=== PATIENT | female | born 1965 | race Caucasian/White ===

== ENCOUNTER 2017-09-04 20:51 | Emergency (ER) | payer OTHER ==
[~2017-09-04] VITALS: Ht 170.2 cm; Wt 112.5 kg
[~2017-09-04 20:51] MED LIST: ATEN50; NAPR550 PO; RXHYDACE PO; VYTORIN
[2017-09-04 22:10] LABS: BASOPHILS ABSOLUTE AUTO 0.03 K/mm3 (0.00-0.23); BASOPHILS PERCENT AUTO 0 % (0-2); EOSINOPHILS ABSOLUTE AUTO 0.59 K/mm3 (0.00-0.68); EOSINOPHILS PERCENT AUTO 5 % (0-6); Hemoglobin 15.9 g/dL (11.5-16.0); IMMATURE GRAN ABSOLUTE AUTO 0.04 K/mm3 (0.00-0.10); IMMATURE GRAN PERCENT AUTO 0 % (0-1); LYMPHOCYTES ABSOLUTE AUTO 3.23 K/mm3 (0.84-5.20); LYMPHOCYTES PERCENT AUTO 25 % (21-46); MONOCYTES ABSOLUTE AUTO 0.65 K/mm3 (0.16-1.47); MONOCYTES PERCENT AUTO 5 % (4-13); Mean Corpuscular HGB 30.1 pg (26.0-34.0); Mean Corpuscular HGB Conc 33.8 g/dL (31.5-36.5); Mean Corpuscular Volume 89 fL (80-100); Mean Platelet Volume 9.2 fL (9.1-12.4); NEUTROPHILS ABSOLUTE AUTO 8.19 K/mm3 (1.96-9.15); NEUTROPHILS PERCENT AUTO 64 % (41-73); Platelet Count 352 K/mm3 (150-400); RDW Coefficient Variation 14.1 % (11.7-14.2); RDW Standard Deviation 45.9 fL (35.1-46.3); Red Blood Cell Count 5.28 M/mm3 (3.80-5.20); White Blood Cell Count 12.73 K/mm3 (4.00-11.30)
[2017-09-04 22:31] LABS: Alanine Aminotransfer (ALT/SGP 29 U/L (12-78); Albumin, Blood 3.2 g/dL (3.4-5.0); Albumin/Globulin Ratio 0.7 (0.8-1.8); Alk Phos 82 U/L (50-136); Anion Gap 8 mmol/L (6-16); Aspartate Aminotrans (AST/SGOT 23 U/L (12-37); Bilirubin, Total 0.3 mg/dL (0.1-1.0); Blood Urea Nitrogen 12 mg/dL (8-24); Bun/Creatinine Ratio 18.2 (12.0-20.0); CO2, Blood 23 mmol/L (21-32); Calcium, Blood 8.7 mg/dL (8.5-10.1); Chloride, Blood 107 mmol/L (98-108); Creatinine, Blood 0.66 mg/dL (0.40-1.00); Globulin, Blood 4.8 g/dL (2.2-4.0); Glomerular Filtration Rate >60 (60-); Glucose, Blood 89 mg/dL (70-99); Potassium, Blood 4.2 mmol/L (3.5-5.5); Sodium, Blood 138 mmol/L (136-145); Troponin I <0.015 ng/mL (0.000-0.040)
[2017-09-04] MEDS ORDERED: CYCL10 PO (23:16)
[2017-09-05] MEDS ORDERED: Zithromax250 MG PO (17:06)
[2017-09-05] MEDS ORDERED: Cheratussin AC118 ML PO (17:06)
== END 2017-09-04 23:45 | disposition home or self-care (01) ==
LOC: ER 20:51
PROVIDERS: Emergency Medicine
DX: M54.9 Dorsalgia, unspecified (principal); B34.9 Viral infection, unspecified; Z79.899 Other long term (current) drug therapy
CPT/HCPCS: 36415; 71046; 80053; 83690; 83880; 84484; 85025; 93005; 93010; 96374; 99284; J1885

== ENCOUNTER → 2017-09-09 | Outpatient (CLI) | payer OTHER ==
[~2017-09-09] MED LIST changes: +ACET325 PO; +CYCL10 PO; +Cheratussin AC118 ML PO; +FOLI1 PO; +LEVO750 PO; +LOSA50 PO; +METTREX2.5 PO; +PRED10 PO; +PRED5 PO; +Zithromax250 MG PO
[2017-09-09 17:03] LABS: BASOPHILS ABSOLUTE AUTO 0.05 K/mm3 (0.00-0.23); BASOPHILS PERCENT AUTO 0 % (0-2); EOSINOPHILS ABSOLUTE AUTO 0.81 K/mm3 (0.00-0.68); EOSINOPHILS PERCENT AUTO 7 % (0-6); Hematocrit 47.6 % (33.0-51.0); Hemoglobin 15.9 g/dL (11.5-16.0); IMMATURE GRAN ABSOLUTE AUTO 0.02 K/mm3 (0.00-0.10); IMMATURE GRAN PERCENT AUTO 0 % (0-1); LYMPHOCYTES ABSOLUTE AUTO 2.77 K/mm3 (0.84-5.20); LYMPHOCYTES PERCENT AUTO 24 % (21-46); MONOCYTES ABSOLUTE AUTO 0.61 K/mm3 (0.16-1.47); MONOCYTES PERCENT AUTO 5 % (4-13); Mean Corpuscular HGB 29.4 pg (26.0-34.0); Mean Corpuscular HGB Conc 33.4 g/dL (31.5-36.5); Mean Corpuscular Volume 88 fL (80-100); Mean Platelet Volume 9.2 fL (9.1-12.4); NEUTROPHILS ABSOLUTE AUTO 7.26 K/mm3 (1.96-9.15); NEUTROPHILS PERCENT AUTO 63 % (41-73); Platelet Count 373 K/mm3 (150-400); Red Blood Cell Count 5.41 M/mm3 (3.80-5.20); White Blood Cell Count 11.52 K/mm3 (4.00-11.30)
== END | disposition home or self-care (01) ==
LOC: LAB EV 16:58
PROVIDERS: Physician Assistant
DX: J18.9 Pneumonia, unspecified organism (principal)
CPT/HCPCS: 85025; 85379

== ENCOUNTER → 2017-09-25 | Outpatient (CLI) | payer OTHER ==
[2017-09-25 11:53] LABS: BASOPHILS ABSOLUTE AUTO 0.04 K/mm3 (0.00-0.23); BASOPHILS PERCENT AUTO 0 % (0-2); EOSINOPHILS ABSOLUTE AUTO 1.06 K/mm3 (0.00-0.68); EOSINOPHILS PERCENT AUTO 11 % (0-6); Hematocrit 45.4 % (33.0-51.0); IMMATURE GRAN ABSOLUTE AUTO 0.03 K/mm3 (0.00-0.10); IMMATURE GRAN PERCENT AUTO 0 % (0-1); LYMPHOCYTES PERCENT AUTO 27 % (21-46); MONOCYTES ABSOLUTE AUTO 0.45 K/mm3 (0.16-1.47); MONOCYTES PERCENT AUTO 5 % (4-13); Mean Corpuscular HGB 29.2 pg (26.0-34.0); Mean Corpuscular Volume 88 fL (80-100); Mean Platelet Volume 8.9 fL (9.1-12.4); NEUTROPHILS ABSOLUTE AUTO 5.59 K/mm3 (1.96-9.15); NEUTROPHILS PERCENT AUTO 57 % (41-73); Platelet Count 418 K/mm3 (150-400); RDW Coefficient Variation 14.1 % (11.7-14.2); RDW Standard Deviation 45.6 fL (35.1-46.3); Red Blood Cell Count 5.14 M/mm3 (3.80-5.20); White Blood Cell Count 9.87 K/mm3 (4.00-11.30)
[2017-09-26 14:29] LABS: Rheumatoid Factor, Serum Negative (Negative)
[2017-09-28 04:43] LABS: C3 135 mg/dL (90-200); C4 17.9 mg/dL (15.0-55.0)
[2017-09-28 09:13] LABS: RNP/SM Ab IgG 0.2 AI (<1.0)
[2017-09-29 11:11] LABS: ANA Pattern Speckled; Antinuclear Antibody Screen Positive Cytoplasmic (Negative)
== END ==
LOC: LAB EV 11:49
PROVIDERS: Physician Assistant
DX: R05 Cough (principal)
CPT/HCPCS: 85025; 85651; 86038; 86039; 86160; 86225; 86235; 86430

== ENCOUNTER → 2017-12-07 | Outpatient (CLI) | payer OTHER ==
[~2017-12-07] MED LIST changes: -ACET325 PO; -FOLI1 PO; -LEVO750 PO; -LOSA50 PO; -METTREX2.5 PO; -PRED10 PO; -PRED5 PO
[2017-12-09 14:32] LABS: Stool Occult Bld Immuno 1 Negative (NEGATIVE)
== END | disposition home or self-care (01) ==
LOC: LAB EV 09:15
PROVIDERS: Nurse Practitioner Family
DX: Z12.11 Encounter for screening for malignant neoplasm of colon (principal)
CPT/HCPCS: G0328

== ENCOUNTER 2018-02-04 21:07 | Inpatient (IN) | payer OTHER ==
[~2018-02-04] VITALS: Ht 170.2 cm; Wt 110.0 kg
[2018-02-04] MEDS ORDERED: PRED5 PO (21:20)
[2018-02-04] MEDS ORDERED: FOLI1 PO (21:20)
[2018-02-04] MEDS ORDERED: METTREX2.5 PO (21:21)
[2018-02-04] MEDS ORDERED: LOSA50 PO (21:21)
[2018-02-04 21:41] LABS: BASOPHILS ABSOLUTE AUTO 0.05 K/mm3 (0.00-0.23); BASOPHILS PERCENT AUTO 0 % (0-2); EOSINOPHILS ABSOLUTE AUTO 0.54 K/mm3 (0.00-0.68); EOSINOPHILS PERCENT AUTO 4 % (0-6); Hematocrit 46.3 % (33.0-51.0); Hemoglobin 15.3 g/dL (11.5-16.0); IMMATURE GRAN ABSOLUTE AUTO 0.02 K/mm3 (0.00-0.10); IMMATURE GRAN PERCENT AUTO 0 % (0-1); LYMPHOCYTES ABSOLUTE AUTO 3.53 K/mm3 (0.84-5.20); LYMPHOCYTES PERCENT AUTO 29 % (21-46); MONOCYTES PERCENT AUTO 6 % (4-13); Mean Corpuscular HGB 29.3 pg (26.0-34.0); Mean Corpuscular Volume 89 fL (80-100); Mean Platelet Volume 8.5 fL (9.1-12.4); NEUTROPHILS ABSOLUTE AUTO 7.39 K/mm3 (1.96-9.15); NEUTROPHILS PERCENT AUTO 60 % (41-73); Platelet Count 389 K/mm3 (150-400); RDW Coefficient Variation 14.1 % (11.7-14.2); RDW Standard Deviation 45.6 fL (35.1-46.3); Red Blood Cell Count 5.22 M/mm3 (3.80-5.20); White Blood Cell Count 12.23 K/mm3 (4.00-11.30)
[2018-02-04 22:00] LABS: Alanine Aminotransfer (ALT/SGP 31 U/L (12-78); Albumin, Blood 3.1 g/dL (3.4-5.0); Albumin/Globulin Ratio 0.6 (0.8-1.8); Alk Phos 86 U/L (50-136); Anion Gap 7 mmol/L (6-16); Aspartate Aminotrans (AST/SGOT 25 U/L (12-37); Bilirubin, Total 0.4 mg/dL (0.1-1.0); Blood Urea Nitrogen 15 mg/dL (8-24); Bun/Creatinine Ratio 21.7 (12.0-20.0); CO2, Blood 24 mmol/L (21-32); Calcium, Blood 9.2 mg/dL (8.5-10.1); Chloride, Blood 109 mmol/L (98-108); Creatinine, Blood 0.69 mg/dL (0.40-1.00); Globulin, Blood 5.1 g/dL (2.2-4.0); Glomerular Filtration Rate >60 (60-); Glucose, Blood 88 mg/dL (70-99); Sodium, Blood 140 mmol/L (136-145); Total Protein, Blood 8.2 g/dL (6.4-8.2)
[2018-02-04 22:28] LABS: Troponin I <0.015 ng/mL (0.000-0.040)
[2018-02-06 04:33] LABS: International Normalized Ratio 1.04; Prothrombin Time Results 10.8 Sec (9.7-11.5)
[2018-02-06 12:48] LABS: Body Fluid WBC Count 4540 /mm3 (0-999); RBC Count, Body Fluid 50000 /mm3 (0-0)
[2018-02-06 12:53] LABS: Protein, Body Fluid 4.7 g/dL
[2018-02-06 12:59] LABS: Glucose, Body Fluid 92 mg/dL
[2018-02-06 13:40] LABS: Color, Body Fluid Red (None-Yellow)
[2018-02-06 13:41] LABS: Appearance, Body Fluid Cloudy (Clear); Total Cell Count, Body Fluid 100
[2018-02-06] MEDS ORDERED: PRED10 PO (17:35)
[2018-02-06] MEDS ORDERED: ACET325 PO (17:36)
[2018-02-06] MEDS ORDERED: LEVO750 PO (17:37)
== END 2018-02-06 18:32 | disposition home or self-care (01) | DRG 871 ==
LOC: ER 21:07 → PCU 21:08
PROVIDERS: Emergency Medicine; Family Medicine
PROC: 0W993ZZ Drainage of Right Pleural Cavity, Percutaneous Approach (ICD-10-PCS; principal; 2018-02-06)
DX: A41.9 Sepsis, unspecified organism (principal); J18.9 Pneumonia, unspecified organism; J90 Pleural effusion, not elsewhere classified; F17.210 Nicotine dependence, cigarettes, uncomplicated; I10 Essential (primary) hypertension; R73.9 Hyperglycemia, unspecified; R07.89 Other chest pain; M06.9 Rheumatoid arthritis, unspecified
CPT/HCPCS: 32555; 36415; 71045; 71046; 71260; 80053; 82042; 82945; 84157; 84484; 85025; 85610; 87070; 88108; 88305; 89051; 93005; 93010; 96365; 96366; 96368; 96372; 96374; 96375; 96376; 99285; G0378; J0696; J1650; J1956; J2543; J7030; J7120; Q9967

== ENCOUNTER → 2020-07-01 | Outpatient (CLI) | payer OTHER ==
[~2020-07-01] MED LIST changes: +ACET325 PO; +FOLI1 PO; +LEVO750 PO; +LOSA50 PO; +METTREX2.5 PO; +PRED10 PO; +PRED5 PO
== END | disposition home or self-care (01) ==
LOC: LAB SHORT 08:26 → PLD 08:26
DX: L82.1 Other seborrheic keratosis (principal)
CPT/HCPCS: 88305

== ENCOUNTER → 2021-08-04 | Outpatient (CLI) | payer OTHER | LOC: LAB SHORT 15:13 → LAB 15:13 | DX: D48.5 Neoplasm of uncertain behavior of skin (principal); L81.4 Other melanin hyperpigmentation | CPT/HCPCS: 88305 ==

== ENCOUNTER → 2024-10-10 | Outpatient (CLI) | payer OTHER ==
[2024-10-10 17:22] LABS: BASOPHILS ABSOLUTE AUTO 0.06 K/mm3 (0.00-0.23); BASOPHILS PERCENT AUTO 1 % (0-2); EOSINOPHILS ABSOLUTE AUTO 0.13 K/mm3 (0.00-0.68); EOSINOPHILS PERCENT AUTO 2 % (0-6); Hematocrit 42.7 % (33.0-51.0); Hemoglobin 14.4 g/dL (11.5-16.0); IMMATURE GRAN ABSOLUTE AUTO 0.01 K/mm3 (0.00-0.10); IMMATURE GRAN PERCENT AUTO 0 % (0-1); LYMPHOCYTES ABSOLUTE AUTO 1.99 K/mm3 (0.84-5.20); LYMPHOCYTES PERCENT AUTO 32 % (21-46); MONOCYTES ABSOLUTE AUTO 0.53 K/mm3 (0.16-1.47); MONOCYTES PERCENT AUTO 9 % (4-13); Mean Corpuscular HGB 30.3 pg (26.0-34.0); Mean Corpuscular HGB Conc 33.7 g/dL (31.5-36.5); Mean Corpuscular Volume 90 fL (80-100); NEUTROPHILS ABSOLUTE AUTO 3.43 K/mm3 (1.96-9.15); NEUTROPHILS PERCENT AUTO 56 % (41-73); Platelet Count 224 K/mm3 (150-400); RDW Coefficient Variation 15.7 % (11.7-14.2); RDW Standard Deviation 51.6 fL (35.1-46.3); Red Blood Cell Count 4.75 M/mm3 (3.80-5.20); White Blood Cell Count 6.15 K/mm3 (4.00-11.30)
[2024-10-10 17:38] LABS: Albumin, Blood 3.6 g/dL (3.4-5.0); Albumin/Globulin Ratio 0.9 (0.8-1.8); Bilirubin, Total 0.7 mg/dL (0.1-1.0); Bun/Creatinine Ratio 15.3 (12.0-20.0); Calcium, Blood 10.5 mg/dL (8.5-10.1); Creatinine, Blood 0.85 mg/dL (0.40-1.00); Globulin, Blood 4.2 g/dL (2.2-4.0); Potassium, Blood 3.1 mmol/L (3.5-5.5); Total Protein, Blood 7.8 g/dL (6.4-8.2)
[2024-10-14 10:57] LABS: HEPATITIS A ANTIBODY, IGM Negative (Negative); HEPATITIS B CORE ANTIBODY, IGM Negative (Negative); HEPATITIS B SURFACE ANTIGEN Negative (Negative); HEPATITIS C AB CIA INTERP Negative (Negative); HEPATITIS C ANTIBODY CIA INDEX 0.07 IV
== END | disposition home or self-care (01) ==
LOC: LAB 17:17 → LAB SHORT 17:17
PROVIDERS: Emergency Medicine
DX: R19.7 Diarrhea, unspecified (principal); R74.8 Abnormal levels of other serum enzymes
CPT/HCPCS: 80053; 80074; 83690; 85025; G0480

== ENCOUNTER → 2024-10-21 | Outpatient (CLI) | payer OTHER ==
[2024-10-21 12:15] LABS: BASOPHILS ABSOLUTE AUTO 0.02 K/mm3 (0.00-0.23); BASOPHILS PERCENT AUTO 0 % (0-2); EOSINOPHILS ABSOLUTE AUTO 0.05 K/mm3 (0.00-0.68); EOSINOPHILS PERCENT AUTO 1 % (0-6); Hematocrit 37.2 % (33.0-51.0); Hemoglobin 12.6 g/dL (11.5-16.0); IMMATURE GRAN ABSOLUTE AUTO 0.02 K/mm3 (0.00-0.10); IMMATURE GRAN PERCENT AUTO 0 % (0-1); LYMPHOCYTES ABSOLUTE AUTO 1.26 K/mm3 (0.84-5.20); LYMPHOCYTES PERCENT AUTO 16 % (21-46); MONOCYTES ABSOLUTE AUTO 0.88 K/mm3 (0.16-1.47); MONOCYTES PERCENT AUTO 11 % (4-13); Mean Corpuscular HGB 30.8 pg (26.0-34.0); Mean Corpuscular HGB Conc 33.9 g/dL (31.5-36.5); Mean Corpuscular Volume 91 fL (80-100); NEUTROPHILS ABSOLUTE AUTO 5.87 K/mm3 (1.96-9.15); NEUTROPHILS PERCENT AUTO 73 % (41-73); Platelet Count 181 K/mm3 (150-400); RDW Coefficient Variation 16.6 % (11.7-14.2); RDW Standard Deviation 55.8 fL (35.1-46.3); Red Blood Cell Count 4.09 M/mm3 (3.80-5.20)
[2024-10-21 12:25] LABS: Albumin, Blood 2.7 g/dL (3.4-5.0); Albumin/Globulin Ratio 0.6 (0.8-1.8); Bilirubin, Total 5.7 mg/dL (0.1-1.0); Bun/Creatinine Ratio 13.2 (12.0-20.0); Calcium, Blood 9.2 mg/dL (8.5-10.1); Creatinine, Blood 0.53 mg/dL (0.40-1.00); Globulin, Blood 4.2 g/dL (2.2-4.0); Potassium, Blood 3.7 mmol/L (3.5-5.5); Total Protein, Blood 6.9 g/dL (6.4-8.2)
== END ==
LOC: LAB SHORT 12:09 → LAB 12:09
PROVIDERS: Physician Assistant Medical
DX: R07.81 Pleurodynia (principal)
CPT/HCPCS: 80053; 83690; 85025; 85379

== ENCOUNTER 2024-11-21 13:10 | Emergency (ER) | payer OTHER ==
[~2024-11-21] VITALS: Ht 170.2 cm; Wt 74.8 kg
[2024-11-21 13:49] VITALS: BP 129/78
== END 2024-11-21 17:55 ==
LOC: ER 13:10
DX: T85.510A Breakdown (mechanical) of bile duct prosthesis, initial encounter (principal); F17.200 Nicotine dependence, unspecified, uncomplicated; Z79.899 Other long term (current) drug therapy; Z88.5 Allergy status to narcotic agent
CPT/HCPCS: 99281

== ENCOUNTER 2024-11-29 04:20 | Day surgery (SDC) | payer OTHER | END 2024-11-29 17:17 | disposition home or self-care (01) | LOC: ATC 04:20 | DX: C25.0 Malignant neoplasm of head of pancreas (principal); I10 Essential (primary) hypertension; R73.03 Prediabetes; F17.290 Nicotine dependence, other tobacco product, uncomplicated; Z88.5 Allergy status to narcotic agent; Z79.01 Long term (current) use of anticoagulants; Z79.899 Other long term (current) drug therapy | CPT/HCPCS: 96523; J1642 ==

== ENCOUNTER 2024-12-13 03:52 | Day surgery (SDC) | payer OTHER ==
[2024-12-13 16:37] VITALS: BP 130/80
== END 2024-12-13 16:42 | disposition home or self-care (01) ==
LOC: ATC 03:52
DX: C25.0 Malignant neoplasm of head of pancreas (principal); F17.210 Nicotine dependence, cigarettes, uncomplicated
CPT/HCPCS: 96523; J1642

== ENCOUNTER 2024-12-27 03:11 | Day surgery (SDC) | payer OTHER ==
[2024-12-27 16:15] VITALS: BP 120/89
[2024-12-27] MEDS ORDERED: SPIR50 PO (16:31)
== END 2024-12-27 16:25 | disposition home or self-care (01) ==
LOC: ATC 03:11
DX: C25.0 Malignant neoplasm of head of pancreas (principal); I10 Essential (primary) hypertension; R73.03 Prediabetes; Z88.5 Allergy status to narcotic agent; Z79.899 Other long term (current) drug therapy
CPT/HCPCS: 96523; J1642

== ENCOUNTER 2025-02-03 22:55 | Inpatient (IN) | payer OTHER ==
[~2025-02-03] VITALS: Ht 172.7 cm; Wt 80.9 kg
[~2025-02-03 22:55] MED LIST changes: +SPIR50 PO
[2025-02-03 23:53] LABS: Hematocrit 25.1 % (33.0-51.0); Hemoglobin 8.9 g/dL (11.5-16.0); Mean Corpuscular HGB Conc 35.5 g/dL (31.5-36.5); Mean Corpuscular Volume 80 fL (80-100); NRBC ABSOLUTE 0.13 K/mm3 (0.00-0.02); NRBC Auto 18.6 /100 WBC (0.0-0.2); RDW Coefficient Variation 22.5 % (11.7-14.2); RDW Standard Deviation 56.9 fL (35.1-46.3)
[2025-02-03 23:54] LABS: Platelet Count 40 K/mm3 (150-400)
[2025-02-04] VITALS (72 sets, daily range): BP systolic 71–120; BP diastolic 49–84
[2025-02-04 00:32] LABS: BAND PERCENT MAN 12 % (0-8); BASOPHILS ABSOLUTE MAN 0.00 K/mm3 (0.00-0.23); BASOPHILS PERCENT MAN 0 % (0-2); EOSINOPHILS ABSOLUTE MAN 0.00 K/mm3 (0.00-0.68); EOSINOPHILS PERCENT MAN 0 % (0-6); LYMPHOCYTES ABSOLUTE MAN 0.42 K/mm3 (0.84-5.20); LYMPHOCYTES PERCENT MAN 60 % (21-46); MONOCYTES ABSOLUTE MAN 0.02 K/mm3 (0.16-1.47); MONOCYTES PERCENT MAN 4 % (4-13); NEUTROPHILS ABSOLUTE MAN 0.25 K/mm3 (1.96-9.15); SEG NEUTROPHILS PERCENT MAN 24 % (41-73)
[2025-02-04 00:44] LABS: Alanine Aminotransfer (ALT/SGP 38.0 U/L (12-78); Albumin, Blood 1.5 g/dL (3.4-5.0); Albumin/Globulin Ratio 0.4 (0.8-1.8); Anion Gap 13.0 mmol/L (3-11); Aspartate Aminotrans (AST/SGOT 28.0 U/L (12-37); Bilirubin, Total 0.9 mg/dL (0.1-1.0); Blood Urea Nitrogen 14.0 mg/dL (8-24); CO2, Blood 18.0 mmol/L (21-32); Calcium, Blood 8.5 mg/dL (8.5-10.1); Chloride, Blood 111.0 mmol/L (98-108); Creatinine, Blood 0.63 mg/dL (0.40-1.00); Globulin, Blood 3.4 g/dL (2.2-4.0); Glucose, Blood 102.0 mg/dL (70-99); Potassium, Blood 2.3 mmol/L (3.5-5.5); Sodium, Blood 140.0 mmol/L (136-145); Total Protein, Blood 4.9 g/dL (6.4-8.2)
[2025-02-04] MEDS ORDERED: Cefepime HCl 1,000 MG in NS 100 ML IV ONE (00:55)
[2025-02-04] MEDS ORDERED: Vancomycin HCL 2,000 MG in NS 520 ML IV ONE (00:55)
[2025-02-04] MEDS ORDERED: Vancomycin (Pharmacy Consult) IV SCH (01:40)
[2025-02-04 01:51] LABS: Magnesium, Blood 1.3 mg/dL (1.6-2.4)
[2025-02-04] MEDS ORDERED: Magnesium Sulf 2 GM/Water 50ML 50 ML IV SCH (02:30)
[2025-02-04 04:29] LABS: Source, Urine Clean Catch
[2025-02-04 04:33] LABS: Bilirubin, Urine Neg (Neg); Color, Urine Brown (P-Yellow); Glucose Qualitative, Urine Neg (Neg); Ketones, Urine Neg (Neg); Leukocyte Esterase, Urine 1+ (Neg); Protein, Urine 3+ (Neg); Specific Gravity, Urine 1.015 (1.003-1.022); Urobilinogen, Urine NORM (Normal)
[2025-02-04 04:47] LABS: Red Blood Cells, Urine TNTC /hpf (0-2); White Blood Cells, Urine 0-2 /hpf (0-5)
[2025-02-04] MEDS ORDERED: KLOR-CON 1010 ME2 PO (04:59)
[2025-02-04] MEDS ORDERED: PANTOPRAZOLE SO40 M2 PO (04:59)
[2025-02-04] MEDS ORDERED: ELIQUIS5 M3 PO (04:59)
[2025-02-04] MEDS ORDERED: OXYC5 PO (04:59)
[2025-02-04] MEDS ORDERED: LOMOTIL 2.5-0.1 EACH PO (04:59)
[2025-02-04 05:04] LABS: Hematocrit 22.6 % (33.0-51.0); Hemoglobin 7.7 g/dL (11.5-16.0); Mean Corpuscular HGB Conc 34.1 g/dL (31.5-36.5); Mean Corpuscular Volume 84 fL (80-100); NRBC ABSOLUTE 0.16 K/mm3 (0.00-0.02); NRBC Auto 15.8 /100 WBC (0.0-0.2); RDW Coefficient Variation 22.8 % (11.7-14.2); RDW Standard Deviation 60.7 fL (35.1-46.3)
[2025-02-04 05:19] LABS: Platelet Count 40 K/mm3 (150-400)
[2025-02-04 05:27] LABS: Alanine Aminotransfer (ALT/SGP 31.0 U/L (12-78); Albumin, Blood 1.3 g/dL (3.4-5.0); Albumin/Globulin Ratio 0.4 (0.8-1.8); Anion Gap 14.0 mmol/L (3-11); Aspartate Aminotrans (AST/SGOT 27.0 U/L (12-37); Bilirubin, Total 0.8 mg/dL (0.1-1.0); Blood Urea Nitrogen 13.0 mg/dL (8-24); CO2, Blood 17.0 mmol/L (21-32); Calcium, Blood 7.8 mg/dL (8.5-10.1); Chloride, Blood 113.0 mmol/L (98-108); Creatinine, Blood 0.67 mg/dL (0.40-1.00); Globulin, Blood 2.9 g/dL (2.2-4.0); Glucose, Blood 87.0 mg/dL (70-99); Potassium, Blood 2.6 mmol/L (3.5-5.5); Sodium, Blood 141.0 mmol/L (136-145); Total Protein, Blood 4.2 g/dL (6.4-8.2)
[2025-02-04 05:56] LABS: BAND PERCENT MAN 26 % (0-8); BASOPHILS ABSOLUTE MAN 0.00 K/mm3 (0.00-0.23); BASOPHILS PERCENT MAN 0 % (0-2); BLASTS PERCENT MAN 4 % (0-0); EOSINOPHILS ABSOLUTE MAN 0.00 K/mm3 (0.00-0.68); EOSINOPHILS PERCENT MAN 0 % (0-6); LYMPHOCYTES % ATYPICAL MANUAL 2 % (0-0); LYMPHOCYTES ABSOLUTE MAN 0.24 K/mm3 (0.84-5.20); LYMPHOCYTES PERCENT MAN 22 % (21-46); MONOCYTES ABSOLUTE MAN 0.14 K/mm3 (0.16-1.47); MONOCYTES PERCENT MAN 14 % (4-13); MYELOCYTE ABSOLUTE MAN 0.04 K/mm3 (0.00-0.00); MYELOCYTE PERCENT MAN 4 % (0-0); NEUTROPHILS ABSOLUTE MAN 0.50 K/mm3 (1.96-9.15); PROMYELOCYTE ABSOLUTE MAN 0.04 K/mm3 (0.00-0.00); PROMYELOCYTE PERCENT MAN 4 % (0-0); SEG NEUTROPHILS PERCENT MAN 24 % (41-73)
--- NOTE | 2025-02-04 07:00 | NUR ---
CARE ASSUMPTION DURING BEDSIDE SHIFT REPORT W SHAD JUAREZ THE PT IN LYING IN BED ON RM AIR. PT AWAKENS EASILY TO OUR VOICE AND COMMUNICATED APPROPRIATELY W STAFF. PT'S MONITOR SHOWING ST VS AFIB 100-150. BP W MAP >65 ON LEVOPHED GTT. LR INFUSING AT 125 ML/HR. PT DENYING ANY PAIN OR NAUSEA AT THIS TIME. UPON ASSESSMENT PT AFEBRILE. PT REPORTING "FEELING BETTER" THEN SHE DID BEFORE COMING IN. PT SPEAKING IN FULL SENTANCES SHOWING NO DYSPNEA. PT OVERALL APPEARS WEAK BUT IN NO OBVIOUS DISTRESS AT THIS TIME. DR. LYN CONTACTED AND NOTIFIED ON INCREASING LEVOPHED GTT TITRATIONS, ORDERS FOR VASOPRESSIN AND HYDROCORTISONE OBTAINED.
--- NOTE | 2025-02-04 07:45 | NUR ---
ADMISSION 0520 RECEIVED PT FROM ED VIA STRETCHER AND TRANSFERRED TO ICU BED ROON 10, PT ALERT AND ORIENTED, FOLLOWS COMMANDS, ABLE TO MAKE NEEDS KNOWN, SR-ST 90-120 S, BP MAP GOAL OF >65 ON LEVOPHED GTT AND TITRATED PER EMAR, AFEBRILE, NOTED MULTIPLE ABRASIONS, SKIN TEARS AND BRUISING TO SKIN WITH PICTURES IN CHART, BLE WITH +4 PITTING EDEMA, RIGHT CHEST MEDIPORT ACCESSED WITH LEVOPHED INFUSING, PIV TO RIGHT AC AND LEFT FOREARM PATENT, POTASSIUM AND MAG REPLACEMENT INFUSING, LR INFUSING AT 100 ML/HR AND VANC INFUSING , PUREWICK PLACED PER PT INCONTINENT OF URINE, LACTIC OF 3.2 AND PLATELETS OF 40 CALLED TO MD WITH NEW ORDERS RECEIVED TO INCREASE LR TO 125 ML/HR, PT REMAINS ON NEUTROPENIC PRECAUTIONS, ORIENTED TO ROOM, BED CONTROLS AND CALL LIGHT, DENIES NEEDS OR C/O AT THIS TIME
[2025-02-04] MEDS ORDERED: Vasopressin 20 UNITS in NS 100 ML IV SCH (08:10)
[2025-02-04] MEDS ORDERED: Cefepime HCl 2,000 MG in NS 100 ML IV SCH (10:00)
[2025-02-04] MEDS ORDERED: Piperacillin/Tazobactam Sod 4.5 GM in NS 100 ML IV ONE (11:20)
[2025-02-04] MEDS ORDERED: FentaNYL Citrate 50 MCG/ML 2 ML Injection IV PRN (11:40)
[2025-02-04] MEDS ORDERED: Furosemide 10 MG / ML 2ML Vial IV SCH (12:00)
[2025-02-04] MEDS ORDERED: Phenylephrine HCl 100 MCG/ML-NS 10MLSYR (1MG/10ML) IV ONE ×2 (13:32→21:14)
[2025-02-04] MEDS ORDERED: Rocuronium Bromide 10 MG/ML 5ML Injection IV ONE ×2 (13:32→21:14)
[2025-02-04] MEDS ORDERED: Propofol 10mg/ml 20 ml Vial (Procedural) IV ONE (13:32)
[2025-02-04 14:04] LABS: Anion Gap 16.0 mmol/L (3-11); Blood Urea Nitrogen 14.0 mg/dL (8-24); CO2, Blood 16.0 mmol/L (21-32); Calcium, Blood 7.9 mg/dL (8.5-10.1); Chloride, Blood 112.0 mmol/L (98-108); Creatinine, Blood 0.65 mg/dL (0.40-1.00); Glucose, Blood 106.0 mg/dL (70-99); Potassium, Blood 2.8 mmol/L (3.5-5.5); Sodium, Blood 141.0 mmol/L (136-145)
[2025-02-04] MEDS ORDERED: Potassium Chl 20MEQ/Water100ML 100 ML IV STA (14:20)
[2025-02-04] MEDS ORDERED: NS 250 ML IV PRN (14:30)
--- NOTE | 2025-02-04 16:47 | NUR ---
Pt. is resting but responds when I enter the room. The Pt. is pleasant. Facilitated a life review and listened with empathy and interest as the Pt. verbalized her journey with pancreatic cancer. The Pt. displays evidence of both ceci and defiance as she verbalizes her cancer rushing. Matters of crystal and belief are also considered. Prayed with Pt. Pt. verbalized gratitude for the spiritual care visit and welcomed this clinical data management manager to return.
[2025-02-04] MEDS ORDERED: Piperacillin/Tazobactam Sod 4.5 GM in NS 100 ML IV SCH (18:00)
--- NOTE | 2025-02-04 19:12 | NUR ---
DAY SHIFT SUMMARY PT HAS BEEN ALERT AND ORIENTED THIS SHIFT COMMUNICATING APPROPRIATELY W STAFF. PT REMAINED ON LEVOPHED AND VASOPRESSIN GTT'S THIS SHIFT. BP STABLE MAP ON PRESSORS. MONITOR SHOWING ST 100-150'S THIS AM BUT PT HR DROPPED TO 80'S-90'S THIS AFTERNOON. PT AFEBRILE ALL SHIFT. PT W POOR PO INTAKE THIS SHIFT. PT GIVEN LASIX AND HAD PUREWICK IN PLACE HOWEVER PT'S PUREWICK FAILED TO COLLECT URINE ON 2 EVENTS SO i&o'S ARE NOT ACUURATE, INCONTINENT URINE VOIDS WERE VERY LARGE. PT W ONE INCONTINENT LOOSE STOOL THIS SHIFT. PT'S SONS AT BEDSIDE THIS EVENING AGREEING TO TAKE PT'S HOME MEDICATIONS HOME. WILL REPORT TO ONCOMING RN.
[2025-02-04 20:42] LABS: Anion Gap 14.0 mmol/L (3-11); Blood Urea Nitrogen 14.0 mg/dL (8-24); CO2, Blood 16.0 mmol/L (21-32); Calcium, Blood 8.2 mg/dL (8.5-10.1); Chloride, Blood 113.0 mmol/L (98-108); Creatinine, Blood 0.71 mg/dL (0.40-1.00); Glucose, Blood 132.0 mg/dL (70-99); Potassium, Blood 3.5 mmol/L (3.5-5.5); Sodium, Blood 139.0 mmol/L (136-145)
--- NOTE | 2025-02-04 20:43 | NUR ---
UPDATE PT GIVEN SCHEDULED PO MEDS OF LIQUID POTASSIUM AND PT BEGAN VOMITING IMMEDIATELY AFTER TAKING, COMPLETE BED LINEN CHANGE AND GOWN CHANGE DONE, CALLED MD TO NOTIFY OF PT VOMITING WITH NEW ORDERS RECEIVED FOR IV POTASSIUM REPLACEMENT
[2025-02-04] MEDS ORDERED: Ondansetron HCl 2 MG / ML 2ML Vial IV PRN (21:00)
[2025-02-04] MEDS ORDERED: Etomidate 2MG / ML 10ML Vial XX ONE (21:14)
[2025-02-04] MEDS ORDERED: Midazolam HCl 1MG / ML 2ML Vial XX ONE (21:14)
[2025-02-05] VITALS (78 sets, daily range): BP systolic 71–120; BP diastolic 44–91
[2025-02-05 04:04] LABS: Hematocrit 24.6 % (33.0-51.0); Hemoglobin 8.8 g/dL (11.5-16.0); Mean Corpuscular HGB Conc 35.8 g/dL (31.5-36.5); NRBC ABSOLUTE 0.40 K/mm3 (0.00-0.02); NRBC Auto 4.9 /100 WBC (0.0-0.2); RDW Coefficient Variation 22.6 % (11.7-14.2); RDW Standard Deviation 55.4 fL (35.1-46.3)
[2025-02-05 04:06] LABS: Mean Corpuscular Volume 79 fL (80-100)
[2025-02-05 04:08] LABS: Platelet Count 33 K/mm3 (150-400)
[2025-02-05 04:23] LABS: Anion Gap 15.0 mmol/L (3-11); Blood Urea Nitrogen 14.0 mg/dL (8-24); CO2, Blood 16.0 mmol/L (21-32); Calcium, Blood 8.3 mg/dL (8.5-10.1); Chloride, Blood 114.0 mmol/L (98-108); Creatinine, Blood 0.79 mg/dL (0.40-1.00); Glucose, Blood 141.0 mg/dL (70-99); Potassium, Blood 3.6 mmol/L (3.5-5.5); Sodium, Blood 141.0 mmol/L (136-145)
[2025-02-05 04:27] LABS: BAND PERCENT MAN 11 % (0-8); BASOPHILS ABSOLUTE MAN 0.00 K/mm3 (0.00-0.23); BASOPHILS PERCENT MAN 0 % (0-2); EOSINOPHILS ABSOLUTE MAN 0.00 K/mm3 (0.00-0.68); EOSINOPHILS PERCENT MAN 0 % (0-6); LYMPHOCYTES ABSOLUTE MAN 1.23 K/mm3 (0.84-5.20); LYMPHOCYTES PERCENT MAN 15 % (21-46); MONOCYTES ABSOLUTE MAN 0.57 K/mm3 (0.16-1.47); MONOCYTES PERCENT MAN 7 % (4-13); NEUTROPHILS ABSOLUTE MAN 6.40 K/mm3 (1.96-9.15); SEG NEUTROPHILS PERCENT MAN 67 % (41-73)
--- NOTE | 2025-02-05 06:19 | NUR ---
SHIFT SUMMARY PT ALERT AND ORIENTED X4 FOLLOWS COMMANDS, ABLE TO MAKE NEEDS KNOWN, NO ACUTE CHANGES THIS SHIFT, SR-SA 80-100s, BP MAP GOAL OF >65 WITH LEVOPHED IV TITRATED PER EMAR AND VASOPRESSIN GTT INFUSING PER ORDERS, AFEBRILE, POOR PO INTAKE NOTED WITH PT VOMITING AFTER TAKING PO MEDS AND PO LIQUID POTASSIUM, POTASSIUM REPLACEMENT CHANGED TO IV PER MD AND PT MEDICATED WITH ZOFRAN IVP FOR NAUSEA /VOMITING AND EFFECTIVE, RESP EVEN AND UNLABORED ON RA WITH SPO2 >92%, RLQ BILIARY DRAIN CLAMPED AND SECURED WITH SUTURES, DRESSING SATURATED WITH GREEN BILE THIS AM, GOWN AND SHEETS CHANGED, DRESSING CHANGED WITH GAUZE AND TEGADERM PLACED OVER INSERTION SITE, PT TOLERATED WELL, NOTED ABD FOLD RED AND TENDER TO TOUCH, INTER-DRY PLACED IN ABD FOLD, PUREWICK IN PLACE AND PATENT, PT INCONTINENT X1 OF SMALL LOOSE BROWN BM, PERICARE GIVEN, BRIEF AND PUREWICK CHANGED , PT TOLERATED WELL, NOTED +4 BLE EDEMA, PT SON TOOK PT HOME MEDS HOME AT BEGINNING OF SHIFT PER PT REQUEST, PT TURNED AND REPOSITIONED EVERY 2 HOURS, NEUTROPENIC PRECAUTIONS MAINTAINED, POTASSIUM REPLACEMENT ORDERS RECEIVED, PT RESTING WITH EYES CLOSED MOST OF SHIFT, AWAKENS EASILY WITH VERBAL STIMULI, BED IN LOWEST POSITION, SIDE RAILS UP X2 CALL LIGHT IN REACH
--- NOTE | 2025-02-05 07:00 | NUR ---
ASSUMPTION OF CARE PT RECEIVING LEVOPHED 10MCG/MIN AND VASOPRESSIN 0.04UNITS/MIN. PT WAKENS TO VERBAL STIMULI. SLOW TO RESPOND AT TIMES BUT PARTICIPATES IN CONVERSATION AND FOLLOWS COMMANDS. SINUS ARRYTHMIA ON MONITOR WITH RATE IN 90S. DECREASED APPETITE, REFUSES BREAKFAST TRAY. PUREWICK IN PLACE WITH 800ML OUTPUT. BED IN LOW POSITION, CALL LIGHT WITHIN REACH.
[2025-02-05 10:42] LABS: Hematocrit 25.0 % (33.0-51.0); Hemoglobin 8.8 g/dL (11.5-16.0); Mean Corpuscular HGB Conc 35.2 g/dL (31.5-36.5); Mean Corpuscular Volume 79 fL (80-100); NRBC ABSOLUTE 0.44 K/mm3 (0.00-0.02); NRBC Auto 4.3 /100 WBC (0.0-0.2); RDW Coefficient Variation 22.8 % (11.7-14.2); RDW Standard Deviation 54.9 fL (35.1-46.3)
[2025-02-05 10:48] LABS: Platelet Count 32 K/mm3 (150-400)
[2025-02-05 11:53] LABS: BAND PERCENT MAN 17 % (0-8); BASOPHILS ABSOLUTE MAN 0.00 K/mm3 (0.00-0.23); BASOPHILS PERCENT MAN 0 % (0-2); EOSINOPHILS ABSOLUTE MAN 0.00 K/mm3 (0.00-0.68); EOSINOPHILS PERCENT MAN 0 % (0-6); LYMPHOCYTES ABSOLUTE MAN 1.23 K/mm3 (0.84-5.20); LYMPHOCYTES PERCENT MAN 12 % (21-46); METAMYELOCYTE ABSOLUTE MAN 0.20 K/mm3 (0.00-0.00); METAMYELOCYTE PERCENT MAN 2 % (0-0); MONOCYTES ABSOLUTE MAN 0.92 K/mm3 (0.16-1.47); MONOCYTES PERCENT MAN 9 % (4-13); NEUTROPHILS ABSOLUTE MAN 7.93 K/mm3 (1.96-9.15); SEG NEUTROPHILS PERCENT MAN 60 % (41-73)
[2025-02-05] MEDS ORDERED: Furosemide 10 MG / ML 2ML Vial IV SCH (12:00)
[2025-02-05] MEDS ORDERED: NS IV ONE (12:55)
[2025-02-05] MEDS ORDERED: POTASSIUM CHLORIDE IV ONE (12:55)
--- NOTE | 2025-02-05 15:50 | NUR ---
Spiritual Care Visit. Pt. is resting, so I intiiated a visit with Pts. son who was at bedside. Facilitated a life review and in the process the Pt. awakened. Pt. remembered this chronometer assembler and adjuster from the previous day, and verbalized that while she has not been experiencing significant pain, she has felt somnolent most of the day. Pt. displayed evidence of being encourgaed by her visitors and verbalized that her mother had been in to see her earlier this afternoon. Prayed with the Pt. Pt. verbalized gratitude for the spiritual care visit.
[2025-02-05] MEDS ORDERED: Multivitamins 1 Tab PO SCH (17:25)
[2025-02-05 18:57] LABS: Magnesium, Blood 2.0 mg/dL (1.6-2.4); Phosphorus, Blood 2.2 mg/dL (2.5-4.9)
[2025-02-06] VITALS (58 sets, daily range): BP systolic 95–125; BP diastolic 66–90
[2025-02-06 03:45] LABS: Hematocrit 24.9 % (33.0-51.0); Hemoglobin 8.9 g/dL (11.5-16.0); Mean Corpuscular HGB Conc 35.7 g/dL (31.5-36.5); Mean Corpuscular Volume 79 fL (80-100); NRBC ABSOLUTE 0.55 K/mm3 (0.00-0.02); NRBC Auto 4.1 /100 WBC (0.0-0.2); RDW Coefficient Variation 23.4 % (11.7-14.2); RDW Standard Deviation 55.3 fL (35.1-46.3)
[2025-02-06 04:19] LABS: Platelet Count 36 K/mm3 (150-400)
[2025-02-06 05:17] LABS: BAND PERCENT MAN 3 % (0-8); BASOPHILS ABSOLUTE MAN 0.00 K/mm3 (0.00-0.23); BASOPHILS PERCENT MAN 0 % (0-2); EOSINOPHILS ABSOLUTE MAN 0.00 K/mm3 (0.00-0.68); EOSINOPHILS PERCENT MAN 0 % (0-6); LYMPHOCYTES ABSOLUTE MAN 0.67 K/mm3 (0.84-5.20); LYMPHOCYTES PERCENT MAN 5 % (21-46); MONOCYTES ABSOLUTE MAN 0.27 K/mm3 (0.16-1.47); MONOCYTES PERCENT MAN 2 % (4-13); NEUTROPHILS ABSOLUTE MAN 12.61 K/mm3 (1.96-9.15); SEG NEUTROPHILS PERCENT MAN 90 % (41-73)
--- NOTE | 2025-02-06 05:43 | NUR ---
SHIFT SUMMARY PT WAS LETHARGIC T/O SHIFT, AWOKE TO VERBAL STIMULI, UNABLE TO HOLD CONVERSATION UNTIL TOWARDS END OF SHIFT. PT MORE ALERT NOW. FOLLOWS COMMANDS. ON ROOM AIR, SATS > 92%. PT HAS VASO AND LEVO INFUSING TO PORT, MAPS > 65, HR 80-100'S. PTS BILIARY DRAIN HAS PROFUSE LEAKAGE OF GREEN DRAINAGE AROUND TUBE, MULTIPLE DRESSING CHANGES DONE THIS SHIFT. GAUZE AND TEGADERM IN PLACE. NEW PUREWICK IN PLACE, GOOD UOP NOTED. PT HAD ONE BM THIS SHIFT. SKIN HAS MULTIPLE MEPILEX IN PLACE, SILVER CLOTH IN PLACE IN FOLDS. PT IS VERY PAINFUL WITH TURNS. NO ACUTE EVENTS THIS SHIFT.
[2025-02-06 05:44] LABS: Alanine Aminotransfer (ALT/SGP 37.0 U/L (12-78); Albumin, Blood 1.4 g/dL (3.4-5.0); Albumin/Globulin Ratio 0.4 (0.8-1.8); Anion Gap 16.0 mmol/L (3-11); Aspartate Aminotrans (AST/SGOT 20.0 U/L (12-37); Bilirubin, Direct 0.5 mg/dL (0.0-0.3); Bilirubin, Indirect 0.5 mg/dL (0.1-0.7); Bilirubin, Total 1.0 mg/dL (0.1-1.0); Blood Urea Nitrogen 19.0 mg/dL (8-24); CO2, Blood 17.0 mmol/L (21-32); Calcium, Blood 8.4 mg/dL (8.5-10.1); Chloride, Blood 113.0 mmol/L (98-108); Creatinine, Blood 0.97 mg/dL (0.40-1.00); Globulin, Blood 3.2 g/dL (2.2-4.0); Glucose, Blood 172.0 mg/dL (70-99); Magnesium, Blood 2.0 mg/dL (1.6-2.4); Phosphorus, Blood 2.7 mg/dL (2.5-4.9); Potassium, Blood 4.0 mmol/L (3.5-5.5); Sodium, Blood 142.0 mmol/L (136-145); Total Protein, Blood 4.6 g/dL (6.4-8.2)
[2025-02-06] MEDS ORDERED: NS IV ONE (10:45)
[2025-02-06] MEDS ORDERED: POTASSIUM CHLORIDE IV ONE (10:45)
--- NOTE | 2025-02-06 18:33 | NUR ---
Summary. Pt more improved this shift per previous report. Up to chair for much of shift today. Pt alert and oriented, occasionally confused in conversation. Pressors titrated down this shift, see flowsheet. Pt has poor oral intake, encouraged to eat and drink throughout shift. PT ordered and in to see pt, she remains profoundly weak. Late in afternoon, during bed bath and dressing change, R/abdomen biliary drain stitches noted to have broken free and drain is out additional 3 cm. Drain stabilized with dressing. Pt skin is very fragile, meplex dressings removed from arms and replaced with non-adherent dressings and kerlix gauze. Family updated throughout shift. See chart for further details.
[2025-02-07] VITALS (50 sets, daily range): BP systolic 70–125; BP diastolic 53–89
[2025-02-07 03:44] LABS: Hematocrit 23.7 % (33.0-51.0); Hemoglobin 8.5 g/dL (11.5-16.0); Mean Corpuscular HGB Conc 35.9 g/dL (31.5-36.5); Mean Corpuscular Volume 80 fL (80-100); NRBC ABSOLUTE 0.53 K/mm3 (0.00-0.02); NRBC Auto 3.6 /100 WBC (0.0-0.2); RDW Coefficient Variation 23.1 % (11.7-14.2); RDW Standard Deviation 57.0 fL (35.1-46.3)
[2025-02-07 03:50] LABS: Platelet Count 33 K/mm3 (150-400)
[2025-02-07 04:07] LABS: Alanine Aminotransfer (ALT/SGP 33.0 U/L (12-78); Albumin, Blood 1.4 g/dL (3.4-5.0); Albumin/Globulin Ratio 0.4 (0.8-1.8); Anion Gap 15.0 mmol/L (3-11); Aspartate Aminotrans (AST/SGOT 18.0 U/L (12-37); Bilirubin, Direct 0.4 mg/dL (0.0-0.3); Bilirubin, Indirect 0.3 mg/dL (0.1-0.7); Bilirubin, Total 0.7 mg/dL (0.1-1.0); Blood Urea Nitrogen 29.0 mg/dL (8-24); CO2, Blood 21.0 mmol/L (21-32); Calcium, Blood 8.0 mg/dL (8.5-10.1); Chloride, Blood 108.0 mmol/L (98-108); Creatinine, Blood 1.01 mg/dL (0.40-1.00); Globulin, Blood 3.2 g/dL (2.2-4.0); Glucose, Blood 230.0 mg/dL (70-99); Magnesium, Blood 2.1 mg/dL (1.6-2.4); Phosphorus, Blood 3.0 mg/dL (2.5-4.9); Potassium, Blood 2.7 mmol/L (3.5-5.5); Sodium, Blood 141.0 mmol/L (136-145); Total Protein, Blood 4.6 g/dL (6.4-8.2)
[2025-02-07 04:29] LABS: BAND PERCENT MAN 1 % (0-8); BASOPHILS ABSOLUTE MAN 0.00 K/mm3 (0.00-0.23); BASOPHILS PERCENT MAN 0 % (0-2); EOSINOPHILS ABSOLUTE MAN 0.00 K/mm3 (0.00-0.68); EOSINOPHILS PERCENT MAN 0 % (0-6); LYMPHOCYTES ABSOLUTE MAN 0.74 K/mm3 (0.84-5.20); LYMPHOCYTES PERCENT MAN 5 % (21-46); MONOCYTES ABSOLUTE MAN 0.44 K/mm3 (0.16-1.47); MONOCYTES PERCENT MAN 3 % (4-13); NEUTROPHILS ABSOLUTE MAN 13.68 K/mm3 (1.96-9.15); SEG NEUTROPHILS PERCENT MAN 91 % (41-73)
--- NOTE | 2025-02-07 06:42 | NUR ---
SHIFT SUMMARY: PATIENT IS ALERT AND ORIENTED BUT VERY LETHARGIC/DROWSY. PRN PAIN MEDICATIONS GIVEN FOR TURNS AND WHEN CLEANING, PATIENT WOULD BE IN 10/10 PAIN BUT SEEMED CONTROLLED AFTER ADMINISTRATION. SEVERELY WEAK, REQUIRES TOTAL CARE. PUPILS ARE EQUAL AND SLUGGISH. GCS OF 15. PULSE/MOTOR/SENSATION IN ALL LIMBS. ON RA WITH CLEAR/DIM LS. MONITOR SHOWS NSR WITH PVC'S, 2/1 PULSES, GENERALIZED +2/+3 EDEMA AND BP SUPPORTED WITH PRESSERS LEVO AND VASO. ABDOMEN IS TENDER THROUGHOUT AND SOFT. RUQ BILE DRAIN, DRESSING CHANGED. INCONTINENT BM X1, TOTAL BED CHANGE AND CLEAN UP. PUREWICK IN PLACE, CHANGED. ADEQUATE UOP. SEE PHOTOS AND NOTES FOR SKIN. ACCESS IS A MEDIPORT AND RIGHT AC PIV. NO COMPLICATIONS OR EVENTS TO REPORT.
[2025-02-07] MEDS ORDERED: POTASSIUM CHLORIDE IV SCH (09:55)
[2025-02-07] MEDS ORDERED: NS IV SCH (09:55)
[2025-02-07] MEDS ORDERED: Diphenoxylat/Atrop 2.5 / 0.025MG 1 Tab PO PRN (12:45)
[2025-02-07] MEDS ORDERED: TPN Consult Notification XX ONE (14:05)
[2025-02-07] MEDS ORDERED: Parenteral Electolytes 40 ML,POTASSIUM PHOS,M-BASIC-D-BASIC 30 MMOL,Multivitamins 10 ML... IV SCH (17:00)
--- NOTE | 2025-02-07 18:12 | NUR ---
Summary. Pt more lethargic this shift. Easily arousable, pt declined getting into recliner. Vasopressin off this shift, levophed continuing to infuse. Pt incontinent of bowel, 1 BM this shift. PG placed for IV rotation. TPN started due to poor oral intake, pt vomited when attempting to eat a few bites of lunch today. No acute events, see chart for further details.
--- NOTE | 2025-02-07 21:35 | NUR ---
EVENT NOTE: 2015 THE PATIENTS FAMILY WAS GIVING THE PATIENT WATER TO DRINK, HOWEVER THE PATIENT ASPIRATED ON SOME AMOUNT. DEVELOPED A SUDDEN ONSET OF SOA AND WENT INTO A COUGHING FIT. SAT THE PATIENT UPRIGHT AND PERCUSSED GENTLY ON THE BACK WHILE ENCOURAGING THE PATIENT TO COUGH. CALLED FOR ASSISTANCE AND CHARGE STEPPED IN. DETERMINED THAT NT SX WAS NEEDED, RT CAME TO THE BEDSIDE AND PERFORMED THIS WITH CHARGE. OUTPUT WAS THICK/TENACIOUS FROTHY WHITE SPUTUM WITH A SCANT AMOUNT OF BLOOD. TOOK THREE PASSES WITH THE NT TO CLEAR COMPLETELY. DURING THIS TIME THE PATIENT WAS ALSO PLACED ON A NRB, THEN SWITCHED TO AN OPEN O2 MASK. SPO2 AT THE LOWEST WAS 88%. THE PATIENT RECOVERED WELL, CURRENTLY WORKING ON WEANING THE PATIENT BACK TO RA, WENT FROM 5 LPM TO 3 LPM VIA OPEN O2 MASK.
--- NOTE | 2025-02-07 21:49 | NUR ---
WOUND CARE NOTE: CHANGED THE BILATERAL SKIN TEAR DRESSINGS ON THE PATIENT. REMOVED CAREFULLY WITH SALINE FLUSHES TO HELP ADHESIVE STRAIN ON THE SKIN. THE SITES APPEAR TO BE VERY DRY AND THE NON-ADHERENT DRESSINGS WERE STICKING TO THE EXPOSED AREAS. COVERED WITH PETROLEUM INFUSED DRESSINGS, THEN KERLEX. PATIENT TOLERATED WELL WITH NO ISSUES.
[2025-02-08] VITALS (66 sets, daily range): BP systolic 75–151; BP diastolic 50–108
[2025-02-08 04:08] LABS: Hematocrit 23.4 % (33.0-51.0); Hemoglobin 8.3 g/dL (11.5-16.0); Mean Corpuscular HGB Conc 35.5 g/dL (31.5-36.5); Mean Corpuscular Volume 80 fL (80-100); NRBC ABSOLUTE 0.57 K/mm3 (0.00-0.02); NRBC Auto 5.5 /100 WBC (0.0-0.2); RDW Coefficient Variation 22.9 % (11.7-14.2); RDW Standard Deviation 57.2 fL (35.1-46.3)
[2025-02-08 04:15] LABS: Platelet Count 30 K/mm3 (150-400)
[2025-02-08 04:27] LABS: Alanine Aminotransfer (ALT/SGP 31 U/L (12-78); Albumin, Blood 1.5 g/dL (3.4-5.0); Albumin/Globulin Ratio 0.5 (0.8-1.8); Aspartate Aminotrans (AST/SGOT 24 U/L (12-37); Bilirubin, Direct 0.3 mg/dL (0.0-0.3); Bilirubin, Indirect 0.4 mg/dL (0.1-0.7); Bilirubin, Total 0.7 mg/dL (0.1-1.0); Blood Urea Nitrogen 30 mg/dL (8-24); CO2, Blood 28 mmol/L (21-32); Calcium, Blood 7.7 mg/dL (8.5-10.1); Chloride, Blood 105 mmol/L (98-108); Creatinine, Blood 0.77 mg/dL (0.40-1.00); Globulin, Blood 3.1 g/dL (2.2-4.0); Glucose, Blood 285 mg/dL (70-99); Magnesium, Blood 2.1 mg/dL (1.6-2.4); Phosphorus, Blood 2.5 mg/dL (2.5-4.9); Sodium, Blood 143 mmol/L (136-145); Total Protein, Blood 4.6 g/dL (6.4-8.2); Triglycerides 217 mg/dL (30-160)
[2025-02-08 04:34] LABS: Anion Gap 12 mmol/L (3-11); Potassium, Blood 2.0 mmol/L (3.5-5.5)
[2025-02-08] MEDS ORDERED: Potassium Chloride 60 MEQ IV SCH (04:50)
[2025-02-08] MEDS ORDERED: Potassium Chl 20MEQ/Water100ML 100 ML IV SCH (04:55)
--- NOTE | 2025-02-08 05:28 | NUR ---
NURSE NOTE: O2 DEMANDS HAVE INCREASED AGAIN. THE PATIENT WENT FROM 1 LPM OPEN O2 MASK, TO 6 LPM VIA NC. PATIENT DESATS QUICKLY AND IS TAKING LONGER TO RECOVER. SPO2 IS NOW HOLDING AT 94%, PREVIOUSLY HAD A DROP DOWN TO 82% WHEN ON THE OPEN MASK.
[2025-02-08] MEDS ORDERED: Pantoprazole Sodium 40 MG Injection IV SCH (06:20)
--- NOTE | 2025-02-08 07:00 | NUR ---
ASSUMPTION OF CARE PT IS RECEIVING LEVOPHED 6MCG/MIN AND PPN. PT IS ALERT, PARTICIPATES IN CONVERSATION AND CARE ABLE. C/O GENERALIZED DISCOMFORT AND WEAKNESS. SHE IS ON 6L NC. DENIES SOB. PT HAS A WEAK COUGH. SINUS ON MONITOR WITH PVCS. PUREWICK IN PLACE DRAINING DARK YELLOW URINE. TEMP 99.4. BED IN LOW POSITION, CALL LIGHT WITHIN REACH.
[2025-02-08] MEDS ORDERED: Insulin Human Lispro 100 Units/ML 3ML Syringe SC SCH ×2 (08:50→12:00)
[2025-02-08 13:42] LABS: Anion Gap 7.0 mmol/L (3-11); Blood Urea Nitrogen 30.0 mg/dL (8-24); CO2, Blood 34.0 mmol/L (21-32); Calcium, Blood 7.5 mg/dL (8.5-10.1); Chloride, Blood 106.0 mmol/L (98-108); Creatinine, Blood 0.72 mg/dL (0.40-1.00); Glucose, Blood 259.0 mg/dL (70-99); Potassium, Blood 2.2 mmol/L (3.5-5.5); Sodium, Blood 145.0 mmol/L (136-145)
--- NOTE | 2025-02-08 15:24 | NUR ---
MET WITH PT'S BROTHER AND SISTER TODAY TO DISCUSS PT'S ONGOING DESIRE TO REMAIN A FULL CODE AND PURSUE TREATMENT. APPARENTLY THE PATIENT ASPIRATED WHILE DRINKING WATER AND SNACKING LAST EVENING, SO SHE IS NOW NPO. SHE APPEARS VERY FRAIL TODAY. PT'S SISTER STATES SHE PLANS TO TALK WITH PT ABOUT HER CODE STATUS AND GOALS OF CARE.
[2025-02-08] MEDS ORDERED: Piperacillin/Tazobactam Sod 3.375 GM in NS 100 ML IV SCH (16:00)
--- NOTE | 2025-02-08 18:14 | NUR ---
SHIFT SUMMARY PT IS RECEIVING LEVOPHED 2MCG/MIN AND PPN. SHE HAS BEEN DROWSY THROUGHOUT THE DAY BUT WAKENS TO VERBAL STIMULI. SHE IS A&OX3. SHE PARTICIPATES IN CONVERSATION WITH STAFF AND FAMILY. SHE IS ON 3L NC. SHE HAS A WEAK COUGH, DENIES SOB. SINUS ARRHYTHMIA WITH RATE BETWEEN 70S-110S. LEVOPHED HAS BEEN TITRATED DOWN THROUGHOUT THE DAY. SHE REMAINS NPO. C/O DRY MOUTH, ORAL CARE AND SWABS PROVIDED. PT HAD 1 INCONTINENT LIQUID/GEL BROWN STOOL. PUREWICK IN PLACE COLLECTING VI URINE. TMAX 99.4. BED IN LOW POSITION, CALL LIGHT WITHIN REACH.
[2025-02-09] VITALS (90 sets, daily range): BP systolic 81–111; BP diastolic 48–75
[2025-02-09 00:07] LABS: Anion Gap 2.0 mmol/L (3-11); Blood Urea Nitrogen 34.0 mg/dL (8-24); CO2, Blood 36.0 mmol/L (21-32); Calcium, Blood 7.8 mg/dL (8.5-10.1); Chloride, Blood 109.0 mmol/L (98-108); Creatinine, Blood 0.58 mg/dL (0.40-1.00); Glucose, Blood 292.0 mg/dL (70-99); Potassium, Blood 3.1 mmol/L (3.5-5.5); Sodium, Blood 144.0 mmol/L (136-145)
[2025-02-09] MEDS ORDERED: Potassium Chl 20MEQ/Water100ML 100 ML IV SCH (00:55)
--- NOTE | 2025-02-09 06:14 | NUR ---
SHIFT SUMMARY: PT HAS BEEN ALERT AND ORIENTED AND APPROPRIATE, MAKING NEEDS KNOWN. SHE IS FATIGUED EASILY AND VERY DROWSY THOUGH. HER BLOOD PRESSURE AND HEART RATE ARE LABILE AND SHE REMAINS ON LEVOPHED GTT TO MAINTAIN A MAP >65. SHE'S BEEN IN A SINUS ARRHYTHMIA WITH A VARIABLE RATE ALL NIGHT. SHE IS ON 3LPM NC, BREATHING IS UNLABORED. COUGHING AND SECRETIONS HAVE DECREASED AND SHE FELT HER BREATHING WAS BETTER OVERALL LAST NIGHT. SHE IS STILL EDEMATOUS AND VERY PAINFUL TO THE TOUCH, BUT IMPROVING. HER SKIN IS VERY BRUISED WITH PETECHIAE FROM THE BLOOD PRESSURE CUFF. DRESSINGS WERE CHANGED THIS SHIFT ON HER ARMS.
[2025-02-09] MEDS ORDERED: Insulin Glargine-Yfgn 100 Unit/mL 3 ML SYR SC ONE (09:00)
--- NOTE | 2025-02-09 09:00 | NUR ---
AM NOTE: THIS RN ASSUMED CARE OF PT AT APPROX 0700. PT ALERT, ORIENTED X3-4 THIS AM. DROWSY BUT ABLE TO COMMUNICATE NEEDS W/ STAFF & PARTICIPATE IN CARE. HR 80-110'S ON MONITOR, SINUS RHYTHM W/ PVC'S. REMAINS ON LEVOPHED GTT AT 1 MCG/MIN TO MAINTAIN MAP >65. O2 DEMAND INCREASED FROM 3L TO 10L VIA HFNC TO MAINTAIN SPO2 >90%. WEAK, PRODUCTIVE COUGH NOTED; PT EDUCATED ON SELF SUCTION. PUREWICK IN PLACE DRAINING VI URINE TO SUCTION. PPN INFUSING PER ORDERS. C/O GENERALIZED PAIN WELL PAIN TO DRAIN SITE, MEDICATED PER EMAR W/ REPORTED RELIEF. FAMILY AT BEDSIDE AT THIS TIME. CALL LIGHT IN REACH.
[2025-02-09 09:47] LABS: Hematocrit 23.8 % (33.0-51.0); Hemoglobin 8.1 g/dL (11.5-16.0); Mean Corpuscular HGB Conc 34.0 g/dL (31.5-36.5); Mean Corpuscular Volume 84 fL (80-100); NRBC ABSOLUTE 0.55 K/mm3 (0.00-0.02); NRBC Auto 4.1 /100 WBC (0.0-0.2); RDW Coefficient Variation 23.5 % (11.7-14.2); RDW Standard Deviation 62.1 fL (35.1-46.3)
[2025-02-09 09:53] LABS: Platelet Count 32 K/mm3 (150-400)
[2025-02-09 10:05] LABS: BASOPHILS ABSOLUTE MAN 0.00 K/mm3 (0.00-0.23); BASOPHILS PERCENT MAN 0 % (0-2); EOSINOPHILS ABSOLUTE MAN 0.00 K/mm3 (0.00-0.68); EOSINOPHILS PERCENT MAN 0 % (0-6); LYMPHOCYTES ABSOLUTE MAN 0.66 K/mm3 (0.84-5.20); LYMPHOCYTES PERCENT MAN 5 % (21-46); MONOCYTES ABSOLUTE MAN 0.53 K/mm3 (0.16-1.47); MONOCYTES PERCENT MAN 4 % (4-13); NEUTROPHILS ABSOLUTE MAN 12.08 K/mm3 (1.96-9.15); SEG NEUTROPHILS PERCENT MAN 91 % (41-73)
[2025-02-09 10:08] LABS: Anion Gap 5.0 mmol/L (3-11); Blood Urea Nitrogen 34.0 mg/dL (8-24); CO2, Blood 35.0 mmol/L (21-32); Calcium, Blood 8.5 mg/dL (8.5-10.1); Chloride, Blood 110.0 mmol/L (98-108); Creatinine, Blood 0.54 mg/dL (0.40-1.00); Glucose, Blood 276.0 mg/dL (70-99); Magnesium, Blood 2.3 mg/dL (1.6-2.4); Phosphorus, Blood 1.6 mg/dL (2.5-4.9); Potassium, Blood 3.9 mmol/L (3.5-5.5); Sodium, Blood 146.0 mmol/L (136-145)
[2025-02-09] MEDS ORDERED: Lidocaine 2% Viscous Soln 20 ML,Nystatin 100,000 Unit/ml Susp 20 ML,Mag Hydrox/Al Hydro... MT PRN (10:30)
[2025-02-09 17:42] LABS: Anion Gap 4.0 mmol/L (3-11); Blood Urea Nitrogen 35.0 mg/dL (8-24); CO2, Blood 35.0 mmol/L (21-32); Calcium, Blood 8.6 mg/dL (8.5-10.1); Chloride, Blood 111.0 mmol/L (98-108); Creatinine, Blood 0.47 mg/dL (0.40-1.00); Glucose, Blood 260.0 mg/dL (70-99); Phosphorus, Blood 1.5 mg/dL (2.5-4.9); Potassium, Blood 3.8 mmol/L (3.5-5.5); Sodium, Blood 146.0 mmol/L (136-145)
--- NOTE | 2025-02-09 17:52 | NUR ---
END OF SHIFT NOTE: PT REMAINS ALERT, ORIENTED X3-4. ABLE TO REST INTERMITTENTLY T/O SHIFT. COMMUNICATES NEEDS & PARTICIPATES IN CARE. LEVOPHED GTT TITRATED UP TO 2MCG/MIN THIS AFTERNOON, NOW INFUSING AT 1MCG/MIN TO MAINTAIN MAP >65. PPN INFUSING PER ORDERS. SINUS ARRHYTHMIA ON MONITOR. 02 TITRATED UP TO 10L THIS AM DUE TO DESAT TO 81%. O2 5-8L THIS AFTERNOON TO MAINTAIN SPO2 >90%. WEAK COUGH W/ MINIMAL THICK SPUTUM PRODUCTION. PT REMAINS NPO PENDING SPEECH EVAL. ORAL CARE/MOUTH SWABS PROVIDED. PUREWICK IN PLACE DRAINING VI URINE TO SUCTION. LOOSE, JELLY-LIKE STOOL; ATTENDS CHANGED TO KEEP C/D/I. C/O PAIN T/O SHIFT, MEDICATED W/ FENTANYL PER EMAR. Q2HR REPOSITIONING. MANY FAMILY MEMBERS AT BEDSIDE T/O SHIFT. NO OTHER NEEDS AT THIS TIME, CALL LIGHT IN REACH.
--- NOTE | 2025-02-09 21:48 | NUR ---
ASSUME CARE: BEDSIDE REPORT RECIEVED FROM NEENA RN. PT A/Ox4 AND PLEASANT WITH CARE. SBP 90s, MAP>65 ON LEVOPHED GTT, SEE FLOWSHEET FOR TITRATIONS. MONITOR SHOWS SINUS ARRYTHMIA, RATE 70-80s. SPO2>93% ON 5L NC. PT HAS WEAK PRODUCTIVE COUGH, SMALL AMOUNT OF YELLOW/THICK SPUTUM. TPN INFUSING PER EMAR. ASSISTED PT W/ORAL CARE, PT REFUSED MAGIC MOUTWASH AT THIS TIME. PUREWICK IN PLACE DRAINING DARK YELLOW URINE TO SUCTION. PT SONS AT BEDSIDE. PT DENIES PAIN AT THIS TIME, WILL CONTINUE TO ASSESS. WILL UPDATE NEEDED.
[2025-02-09] MEDS ORDERED: Potassium Phosphate Dibasic 15 MM in Dextrose 5% 250 ML IV ONE (22:00)
[2025-02-10] VITALS (83 sets, daily range): BP systolic 77–101; BP diastolic 51–74
[2025-02-10 04:31] LABS: Anion Gap 2.0 mmol/L (3-11); Blood Urea Nitrogen 32.0 mg/dL (8-24); CO2, Blood 36.0 mmol/L (21-32); Calcium, Blood 8.5 mg/dL (8.5-10.1); Chloride, Blood 111.0 mmol/L (98-108); Creatinine, Blood 0.47 mg/dL (0.40-1.00); Glucose, Blood 236.0 mg/dL (70-99); Magnesium, Blood 2.4 mg/dL (1.6-2.4); Phosphorus, Blood 2.2 mg/dL (2.5-4.9); Potassium, Blood 3.6 mmol/L (3.5-5.5); Sodium, Blood 145.0 mmol/L (136-145)
--- NOTE | 2025-02-10 05:12 | NUR ---
SHIFT SUMMARY: PT A/Ox4 AND PLEASANT W/CARE T/O SHIFT. SBP 90s, MAP>65 ON LEVOPHED GTT AT 1 MCG/MIN. MONITOR SHOWS SINUS ARRYTHMIA W/PVCs, RATE 60s. SPO2>95% ON 3L HIGH FLOW NC. PT AFEBRILE. PT COMPLAINS OF GENERALIZED PAIN AT TIMES, MEDICATED PER EMAR. PUREWICK DRAINING BROWN URINE TO SUCTION. WOUND CARE COMPLETED TO VIKTORIYA. BILIARY DRAIN DRESSING C/D/I. WILL REPORT TO ONCOMING RN.
[2025-02-10] MEDS ORDERED: Potassium Phosphate Dibasic 20 MM in Dextrose 5% 500 ML IV ONE (05:15)
--- NOTE | 2025-02-10 08:41 | NUR ---
AM NOTE... ASSUMED CARE OF PT AT 0700, PT IS A&Ox4. PT WAS ON 1MCG/MIN OF LEVOPHED AT THE START OF SHIFT SHIFT TO KEEP MAPS>65 THIS WAS STOPPED AT 0830 AND SO FAR MAPS ARE STILL >65. PT IS IN SR/SA IN THE 70'S WITH OCC PVCs. PT HAS ANASARCA 2+ PITTING TO THE BLE AND NONPITTING TO THE BUE. PT WAS ON 3L NC WITH O2 SATS>95% L/S CLEAR AND DIM IN THE UPPER LOBES AND COARSE AND DIM IN THE LOWER LOBES. PT'S O2 WAS TITRATED DOWN TO 2L NC WITH O2 SATS>95%. BT PRESENT AND HYPERACTIVE, ABD IS TENDER TO PALPATION, PT HAS A DRAIN TO THE R ABD WHICH IS COVERED WITH A DRESSING THAT IS C/D/I AT THIS TIME, PT DOES C/O OF 4/10 PAIN TO THE DRAIN SITE, SHE WAS MEDICATED FOR PAIN PER EMAR WITH GOOD RESULTS. PT WAS SEEN BY SPEECH THERAPY AND CLEARED FOR SMALL SIPS OF WATER ONLY, NO JUICE OR OTHER FLUIDS AT THIS TIME.
--- NOTE | 2025-02-10 13:04 | NUR ---
PT UPDATE.... THE PT WAS UP IN THE CHAIR SITTING AT A 90DEGREE ANGLE, SHE WAS GIVEN A SIP OF WATER AND THEN ASPIRATED, THE PT STARTED COUGHING AND HER O2 SATS DROPPED DOWN TO 84%, THE PT'S COUGH WAS WET AND CONGESTED SOUNDING. ONCE THE PT RECOVERED FROM THE COUGHING FIT HER LUNG SOUNDS WERE ASSESSED, THE PT'S L/S ARE NOW COARSE RHONCHI WHEN EARLIER ASSESSMENTS FOUND HER LUNG SOUNDS TO BE CLEAR TO THE BILATERAL UPPER LOBES. PT WAS CHANGED TO NPO PER THIS RN CLINICAL JUDGMENT. SPEECH THERAPY WAS CALLED AND THEY PLAN TO COME SEE HER AGAIN TOMORROW. WHILE THIS RN WAS AT LUNCH THE SURGICAL PROVIDER CAME TO THE BEDSIDE TO ASSESS THE PT, NO PLANS FOR A PEG TUBE PLACMENT AT THIS TIME (SEE HIS PROVIDER NOTE).
[2025-02-10] MEDS ORDERED: Miconazole Nitrate 2% 85 GM PWD TOP PRN (14:10)
--- NOTE | 2025-02-10 14:25 | NUR ---
PT UPDATE... PT REQUESTED TO GET BACK INTO BED FROM THE CHAIR, THE LIFT WAS USED TO HELP WITH THE TRANSFER. PRIOR TO THE PT'S ASPIRATION EVENT SHE WAS DOWN TO RA WITH O2 SATS>90%, NOW SHE IS BACK UP TO 4L NC WITH O2 SATS 90-94%. SHE HAS A WET CONGESTED, WEAK COUGH. THE LEVOHPED CONTINUES TO BE OFF WITH MAPS>65.
[2025-02-10] MEDS ORDERED: Albumin (Human) 25gm/100ml 100 ML IV ONE (14:30)
[2025-02-10] MEDS ORDERED: Insulin Regular 100 UNIT/ML 10ML Vial SC SCH (18:00)
--- NOTE | 2025-02-10 18:33 | NUR ---
SHIFT SUMMARY.... NO ACUTE CHANGES ASSESSED SINCE PREVIOUS NOTES. PT'S BP CONTINUES TO BE STABLE OFF OF LEVOPHED WITH MAPS>65. PT ALSO CONTINUES TO BE ON 7L NC WITH O2 SATS 90-94% L/S COARSE RHONCHI T/O, WEAK CONGESTED COUGH. PT IS NPO WITH NURSE SUPERVISED ORAL SWABS AND ORAL CARE Q4HR. THE PT HAS HAD 4 LOOSE/LIQUID STOOLS THIS SHIFT. SHE WAS UP IN THE CHAIR FOR SEVERAL HOURS THIS SHIFT. THE PT'S FAMILY AT THE BEDSIDE OFF AND ON TODAY, ALL UPDATED BY THIS RN.
[2025-02-10 18:42] LABS: Alanine Aminotransfer (ALT/SGP 45.0 U/L (12-78); Albumin, Blood 1.6 g/dL (3.4-5.0); Albumin/Globulin Ratio 0.6 (0.8-1.8); Aspartate Aminotrans (AST/SGOT 56.0 U/L (12-37); Bilirubin, Direct 0.3 mg/dL (0.0-0.3); Bilirubin, Indirect 0.3 mg/dL (0.1-0.7); Bilirubin, Total 0.6 mg/dL (0.1-1.0); Globulin, Blood 2.7 g/dL (2.2-4.0); Total Protein, Blood 4.3 g/dL (6.4-8.2)
--- NOTE | 2025-02-10 19:38 | NUR ---
ASSUME CARE: REPORT RECIEVED FROM DAYSHIFT RN. PT A/Ox4, APPEARS LETHARGIC/DROWSY W/ASSESSMENT, FALLS ASLEEP BETWEEN ORIENTATION/ASSESSMENT QUESTIONS. SBP 80s, MAP>65, MONITOR SHOWS SINUS RYTHM, RATE 60s. PT DENIES CP OR PRESSURE. SPO2>95% ON 7L HIGH FLOW. LUNG SOUNDS COARSE, PT HAS A MORE DIMINISHED/WEAK COUGH COMPARED TO LAST NIGHT. PUREWICK IN PLACE DRAINING BROWN URINE TO SUCTION. PT SONS AT BEDSIDE. SONS INSTRUCTED THAT THE NURSE ONLY CAN GIVE PT WET SWABS FOR RISK OF ASPIRATION. WILL UPDATE NEEDED.
[2025-02-11] VITALS (25 sets, daily range): BP systolic 81–98; BP diastolic 58–74
[2025-02-11 03:36] LABS: BASOPHILS ABSOLUTE AUTO 0.04 K/mm3 (0.00-0.23); BASOPHILS PERCENT AUTO 0 % (0-2); EOSINOPHILS ABSOLUTE AUTO 0.00 K/mm3 (0.00-0.68); EOSINOPHILS PERCENT AUTO 0 % (0-6); Hematocrit 21.5 % (33.0-51.0); Hemoglobin 7.0 g/dL (11.5-16.0); IMMATURE GRAN ABSOLUTE AUTO 1.02 K/mm3 (0.00-0.10); IMMATURE GRAN PERCENT AUTO 6 % (0-1); LYMPHOCYTES ABSOLUTE AUTO 1.72 K/mm3 (0.84-5.20); LYMPHOCYTES PERCENT AUTO 10 % (21-46); MONOCYTES ABSOLUTE AUTO 1.33 K/mm3 (0.16-1.47); MONOCYTES PERCENT AUTO 8 % (4-13); Mean Corpuscular HGB Conc 32.6 g/dL (31.5-36.5); Mean Corpuscular Volume 87 fL (80-100); NEUTROPHILS ABSOLUTE AUTO 13.28 K/mm3 (1.96-9.15); NEUTROPHILS PERCENT AUTO 76 % (41-73); NRBC ABSOLUTE 0.30 K/mm3 (0.00-0.02); NRBC Auto 1.7 /100 WBC (0.0-0.2); RDW Coefficient Variation 23.4 % (11.7-14.2); RDW Standard Deviation 64.4 fL (35.1-46.3)
[2025-02-11 03:55] LABS: Platelet Count 48 K/mm3 (150-400)
[2025-02-11 04:23] LABS: Anion Gap 0.0 mmol/L (3-11); Blood Urea Nitrogen 32.0 mg/dL (8-24); CO2, Blood 37.0 mmol/L (21-32); Calcium, Blood 8.6 mg/dL (8.5-10.1); Chloride, Blood 110.0 mmol/L (98-108); Creatinine, Blood 0.43 mg/dL (0.40-1.00); Glucose, Blood 206.0 mg/dL (70-99); Phosphorus, Blood 2.6 mg/dL (2.5-4.9); Potassium, Blood 3.4 mmol/L (3.5-5.5); Sodium, Blood 144.0 mmol/L (136-145)
--- NOTE | 2025-02-11 05:21 | NUR ---
SHIFT SUMMARY: PT A/Ox4 AND PLEASANT W/CARE T/O SHIFT. PT MORE ALERT WITH CARE T/O THE EVENING. PT REQUESTS DRINKS OF WATER AND WARM TEA, REQUESTING SOMETHING TO SIGN THAT SAYS SHE CAN DRINK FLUIDS. EDUCATION PROVIDED REGARDING HER ASPIRATION RISK AND WHAT THAT MEANS, PT UNDERSTANDS, AND STOPPED ASKING FOR DRINKS. THIS RN PROVIDED ORAL CARE AND MOIST SWABS W/MOUTH MOISTURIZER FOR COMFORT. SBP 80-90s, MAP>65. MONITOR SHOWS SINUS NEYMAR-SINUS RYTHM, RATE 50-60s. SPO2>95% ON 3L HIGH FLOW. PUREWICK IN PLACE DRAINING DARK YELLOW URINE TO SUCTION. WOUND CARE COMPLETE TO BLUE. WILL REPORT TO ONCOMING RN.
[2025-02-11] MEDS ORDERED: Potassium Phosphate Dibasic 30 MM in Dextrose 5% 500 ML IV ONE (05:30)
--- NOTE | 2025-02-11 07:25 | NUR ---
AM NOTE... ASSUMED CARE OF PT AT 0700, PT IS A&Ox4. SHE IS IN SB IN THE 50'S, BP IS SOFT BUT MAPS >65. PT HAS ANASCARCA WITH 2+ PITTING TO HER BLE. INCREASED PETECHIAL RASH ALL OVER HER ARMS, CHEST, BACK AND HIPS, ALSO NOTED TO HER LEGS WELL, THIS HAS INCREASED FROM YESTERDAY. PT IS ON RA WITH O2 SATS>90% L/S ON THE RIGHT SIDE ARE CLEAR AND DIM, L/S TO LEFT ARE VERY COARSE RHONCHI T/O AND DIM IN THE BASE. ABD IS SOFT AND VERY TENDER TO PALPATION, DRAIN TO THE RIGHT UPPER QUADRANT HAS GUAZE DRESSING THAT IS C/D/I DURING THIS ASSESSMENT. PURWICK IS IN PLACE WITH VI URINE NOTED IN THE CANISTER.
[2025-02-11] MEDS ORDERED: Albumin (Human) 25gm/100ml 100 ML IV ONE (11:00)
--- NOTE | 2025-02-11 14:20 | NUR ---
Spiritual Care Visit. Pt. is awake in a recliner when she welcomed my visit. Rapport is re-established as this laser print operator has met with this Pt. before. Pt. is pleasant. Facilitated an update and considered matters of crystal and family. Pt. requested a bible. Pt. displaayed evidence of reilience even though sh is weak. Prayed with the Pt. Pt. verbalized gratitude for the spiritual care visit. A bible was brought to the Pt. at bedside.
--- NOTE | 2025-02-11 14:25 | NUR ---
PT UPDATE.... PT HAD AN EPISODE OF DESATURATION WHILE THIS RN WAS AT LUNCH, PER THE BREAK RN THE PT'S O2 SATS DROPPED SUDDENLY DOWN TO THE LOW 80'S WITH NO KNOWN CAUSE, SHE WENT FROM RA TO 10L HI FLOW NC TO KEEP O2 SATS>90%. WHEN THIS RN RETURNED FROM LUNCH THE PT'S L/S HAD INCREASED COARSE RHONCHI T/O, THE PT WAS GIVEN A FLUTTER VALVE AND ENCOURAGED TO USE THE FLUTTER AND COUGH, THE PT STARTED TO COUGH UP THICK BELTRAN/WHITE SECRETIONS THAT NEEDED TO BE SUCTIONED FROM THE BACK OF HER THROAT, ONCE SHE WAS ABLE TO COUGH UP A LARGE AMOUNT OF THE SECRETIONS HER O2 WAS TITRATED DOWN TO 2L NC. PROVIDER WAS NOTIFIED. THIS RN ALSO SPOKE WITH SPEECH THERAPY TO TALK ABOUT POSSIBLE SILENT ASPIRATION. PT IS TO BE CLOSELY MONITORED WITH ALL PO INTAKE.
[2025-02-11 15:57] LABS: Hematocrit 23.3 % (33.0-51.0); Hemoglobin 7.7 g/dL (11.5-16.0); Mean Corpuscular HGB Conc 33.0 g/dL (31.5-36.5); Mean Corpuscular Volume 88 fL (80-100); NRBC ABSOLUTE 0.49 K/mm3 (0.00-0.02); NRBC Auto 2.5 /100 WBC (0.0-0.2); Platelet Count 65 K/mm3 (150-400); RDW Coefficient Variation 23.9 % (11.7-14.2); RDW Standard Deviation 65.1 fL (35.1-46.3)
[2025-02-11 16:14] LABS: BAND PERCENT MAN 3 % (0-8); BASOPHILS ABSOLUTE MAN 0.00 K/mm3 (0.00-0.23); BASOPHILS PERCENT MAN 0 % (0-2); EOSINOPHILS ABSOLUTE MAN 0.00 K/mm3 (0.00-0.68); EOSINOPHILS PERCENT MAN 0 % (0-6); LYMPHOCYTES ABSOLUTE MAN 1.96 K/mm3 (0.84-5.20); LYMPHOCYTES PERCENT MAN 10 % (21-46); MONOCYTES ABSOLUTE MAN 0.58 K/mm3 (0.16-1.47); MONOCYTES PERCENT MAN 3 % (4-13); MYELOCYTE ABSOLUTE MAN 0.19 K/mm3 (0.00-0.00); MYELOCYTE PERCENT MAN 1 % (0-0); NEUTROPHILS ABSOLUTE MAN 16.86 K/mm3 (1.96-9.15); SEG NEUTROPHILS PERCENT MAN 83 % (41-73)
[2025-02-11] MEDS ORDERED: Insulin Regular 100 UNIT/ML 10ML Vial SC SCH (16:50)
--- NOTE | 2025-02-11 17:14 | NUR ---
SHIFT SUMMARY.... PT HAS HAD NO MORE ACUTE EVENTS SINCE THE PREVIOUS NOTE. THE PT IS NOW ON RA WITH O2 SATS>90%. PT WAS MEDICATED FOR PAIN ONCE THIS SHIFT WITH GOOD RESULTS. THE PURWICK CONTINUES TO BE IN PLACE AND WAS CHANGED OUT AT 1630 BY THIS RN. PT HAD 1 LOOSE BROWN BM THIS SHIFT, SHE HAS BEEN MEDICATED FOR DIARHHEA TWICE THIS SHIFT. THE PT'S BP IS SOFT BUT MAPS CONTINUE TO BE STABLE. THE PT'S FAMILY HAS BEEN AT THE BEDSIDE MOST OF THIS SHIFT. PT HAS BEEN AFEBRILE.
--- NOTE | 2025-02-11 18:37 | NUR ---
Received pt from ICU in recliner chair. She is alert, oriented, pleasantly conversant on room air with no respiratory distress or vocalized discomfort at this time. TPN infusing via midline IV BA, and antibiotic infusing in mediport Left chest wall. Sites are WNL. Telemetry monitoring shows normal sinus rhythm and blood pressure is soft but MAP is ok. She is afebrile. Abdomen firm and moderately distended. Gauze dressing, CDI, on the right upper quadrant covering what per report is a biliary drain, clamped. Kerlix dressings are clean dry and intact over bilateral forearms. Photos of skin tears of arms noted in chart. Purewick in place for urinary incontinence. Pt's dinner tray is partly eaten, pt states she is saving the drinks for later. Heels are floated above the chair to relieve pressure. Heel protectors are in place.
[2025-02-12] VITALS (7 sets, daily range): BP systolic 90–101; BP diastolic 56–70
[2025-02-12 04:03] LABS: BASOPHILS ABSOLUTE AUTO 0.08 K/mm3 (0.00-0.23); BASOPHILS PERCENT AUTO 0 % (0-2); EOSINOPHILS ABSOLUTE AUTO 0.00 K/mm3 (0.00-0.68); EOSINOPHILS PERCENT AUTO 0 % (0-6); Hematocrit 21.8 % (33.0-51.0); Hemoglobin 7.2 g/dL (11.5-16.0); IMMATURE GRAN ABSOLUTE AUTO 1.33 K/mm3 (0.00-0.10); IMMATURE GRAN PERCENT AUTO 7 % (0-1); LYMPHOCYTES ABSOLUTE AUTO 1.92 K/mm3 (0.84-5.20); LYMPHOCYTES PERCENT AUTO 10 % (21-46); MONOCYTES ABSOLUTE AUTO 1.07 K/mm3 (0.16-1.47); MONOCYTES PERCENT AUTO 5 % (4-13); Mean Corpuscular HGB Conc 33.0 g/dL (31.5-36.5); Mean Corpuscular Volume 88 fL (80-100); NEUTROPHILS ABSOLUTE AUTO 15.73 K/mm3 (1.96-9.15); NEUTROPHILS PERCENT AUTO 78 % (41-73); NRBC ABSOLUTE 1.15 K/mm3 (0.00-0.02); NRBC Auto 5.7 /100 WBC (0.0-0.2); Platelet Count 86 K/mm3 (150-400); RDW Coefficient Variation 24.3 % (11.7-14.2); RDW Standard Deviation 63.5 fL (35.1-46.3)
[2025-02-12 04:27] LABS: Alanine Aminotransfer (ALT/SGP 61.0 U/L (12-78); Albumin, Blood 2.3 g/dL (3.4-5.0); Albumin/Globulin Ratio 1.0 (0.8-1.8); Anion Gap 3.0 mmol/L (3-11); Aspartate Aminotrans (AST/SGOT 48.0 U/L (12-37); Bilirubin, Total 0.7 mg/dL (0.1-1.0); Blood Urea Nitrogen 31.0 mg/dL (8-24); CO2, Blood 34.0 mmol/L (21-32); Calcium, Blood 8.9 mg/dL (8.5-10.1); Chloride, Blood 106.0 mmol/L (98-108); Creatinine, Blood 0.43 mg/dL (0.40-1.00); Globulin, Blood 2.2 g/dL (2.2-4.0); Glucose, Blood 200.0 mg/dL (70-99); Phosphorus, Blood 2.6 mg/dL (2.5-4.9); Potassium, Blood 3.5 mmol/L (3.5-5.5); Sodium, Blood 139.0 mmol/L (136-145); Total Protein, Blood 4.5 g/dL (6.4-8.2)
--- NOTE | 2025-02-12 06:35 | NUR ---
SHIFT SUMMARY PT HAS TOLERATED NIGHT WELL WITH NO SIGNIFICANT EVENTS OR CHANGES IN STATUS. PT HAS REMAINED IN RECLINER THROUGH NIGHT UPON HER REQUEST. PT STATES THAT SHE IS COMFORTABLE IN RECLINER. PT HAS NO COMPLAINTS OF PAIN AT THIS TIME. WILL CONTINUE TO MONITOR UNTIL REPORT PASSED TO DAY SHIFT TEAM.
--- NOTE | 2025-02-12 15:11 | NUR ---
Spiritual Care Visit. Pt. is awake in a chair and welcomes my visit. Pt. is pleasant and displays evidence of resilience and inner strength. Consider matters of support and family relationships as well as matters of crystal and belief. Listen with empathy and a calming presence. Pt. verbalizes an expectation that she [place]. Occupational Therapy arrived. The Pt. verbalized gratitude for the spiritual care visit and welcomed this machine clothing replacer to return.
--- NOTE | 2025-02-12 17:07 | NUR ---
shift summary. this rn took over care of pt at about ~1500. pt has done well since that time. o2 demands have somewhat increased with pt at one point being on 14 l o2 via high flow nc. since that time has been able to be titrated down to 8 l. flutter valve given to pt with education on use by rt. rt attempted deep suction but pt was unable to tolerate. abx infusing at this time. vitals have been stable outside of soft bp, map has remained >65. pt has denied pain. urine output has been minimal, purewick in place. aox4, cooperative, able to make needs known. in recliner at this time. call light within reach. continuing to monitor.
--- NOTE | 2025-02-12 19:00 | NUR ---
THIS RN ALERTED BY HOTEL SERVICE MANAGER MAURA THAT PATIENT IS SATTING AT 83-UPON ARRIVAL TO PATIENTS ROOM, PATIENT APPEARS FREE OF RESPIRATORY DISTRESS, PATIENT SITTING UP IN CHAIR AND DENIES SOB-OXYGEN IS AT 8LPM VIA HIGH FLOW NASAL CANNULA-OXYGEN INCREASED TO 14LPM WITH MINIMAL INPROVEMENT IN SPO2 85-86. RESPIRATORY NOTIFIED ON UNIT AND PATIENT SWITCHED FROM HI-FLOW NASAL CANNULA TO AIRVO-PATIENT TOLERATING WELL. PATIENT IS MAINTAINING SPO2 > 90% AT THIS TIME WITH NO C/O SOB.
[2025-02-12 20:57] LABS: Hematocrit 25.4 % (33.0-51.0); Hemoglobin 8.3 g/dL (11.5-16.0); Mean Corpuscular HGB Conc 32.7 g/dL (31.5-36.5); Mean Corpuscular Volume 89 fL (80-100); NRBC ABSOLUTE 2.32 K/mm3 (0.00-0.02); NRBC Auto 9.7 /100 WBC (0.0-0.2); Platelet Count 135 K/mm3 (150-400); RDW Coefficient Variation 25.5 % (11.7-14.2); RDW Standard Deviation 63.9 fL (35.1-46.3)
[2025-02-12 21:11] LABS: Anion Gap 6.0 mmol/L (3-11); Blood Urea Nitrogen 33.0 mg/dL (8-24); CO2, Blood 32.0 mmol/L (21-32); Calcium, Blood 8.6 mg/dL (8.5-10.1); Chloride, Blood 104.0 mmol/L (98-108); Creatinine, Blood 0.41 mg/dL (0.40-1.00); Glucose, Blood 191.0 mg/dL (70-99); Magnesium, Blood 2.1 mg/dL (1.6-2.4); Potassium, Blood 3.4 mmol/L (3.5-5.5); Sodium, Blood 139.0 mmol/L (136-145)
[2025-02-12] MEDS ORDERED: Potassium Chloride 10 Meq Tablet SA PO ONE (22:25)
[2025-02-13 03:28] VITALS: BP 100/57
[2025-02-13 04:51] LABS: Hematocrit 24.7 % (33.0-51.0); Hemoglobin 8.1 g/dL (11.5-16.0); Mean Corpuscular HGB Conc 32.8 g/dL (31.5-36.5); Mean Corpuscular Volume 90 fL (80-100); NRBC ABSOLUTE 3.41 K/mm3 (0.00-0.02); NRBC Auto 12.6 /100 WBC (0.0-0.2); Platelet Count 142 K/mm3 (150-400); RDW Coefficient Variation 26.3 % (11.7-14.2); RDW Standard Deviation 63.5 fL (35.1-46.3)
[2025-02-13 05:10] LABS: Alanine Aminotransfer (ALT/SGP 93.0 U/L (12-78); Albumin, Blood 2.2 g/dL (3.4-5.0); Albumin/Globulin Ratio 1.0 (0.8-1.8); Anion Gap 8.0 mmol/L (3-11); Aspartate Aminotrans (AST/SGOT 71.0 U/L (12-37); Bilirubin, Total 0.7 mg/dL (0.1-1.0); Blood Urea Nitrogen 36.0 mg/dL (8-24); CO2, Blood 31.0 mmol/L (21-32); Calcium, Blood 8.4 mg/dL (8.5-10.1); Chloride, Blood 104.0 mmol/L (98-108); Creatinine, Blood 0.44 mg/dL (0.40-1.00); Globulin, Blood 2.3 g/dL (2.2-4.0); Glucose, Blood 229.0 mg/dL (70-99); Phosphorus, Blood 2.3 mg/dL (2.5-4.9); Potassium, Blood 3.5 mmol/L (3.5-5.5); Sodium, Blood 139.0 mmol/L (136-145); Total Protein, Blood 4.5 g/dL (6.4-8.2)
--- NOTE | 2025-02-13 05:13 | NUR ---
SHIFT SUMMARY. PATIENT IS A&OX4 AND ABLE TO MAKE HER NEEDS KNOWN. PATIENT HAD AN INCREASE IN OXYGEN DEMANDS AT BEGINNING OF SHIFT-SEE PREVIOUS NOTE. DR. QUISPE ORDERED FOR A STAT CHEST X-RAY AND LABS-DOCTOR ORDERED FOR REPLACEMENT POTASSIUM FOR LOW POTASSIUM OF 3.4. PATIENT IS NOW ON AIRVO AT 40L/min AND 51% SATTING 88-92%. PATIENT C/O PAIN X3-MEDICATED WITH PRN PAIN MEDICATIONS PER ORDERS; SEE EMAR/ORDERS. PATIENTS FAMILY IN AT BEDSIDE FOR A FEW HOURS AT BEGINNING OF SHIFT-SON ASKED FOR A NOTE THAT HE WAS HERE WITH PATIENT DURING THIS HOSPITALIZATION FOR SCHOOL RECORDS (WILL RELAY TO DAYSHIFT NURSE). PATIENT IS TOLERATING AIRVO-PATIENT HAS WEAK COUGH-ENCOURAGED TO USE FLUTTER-VALVE WHEN SHE FELT ABLE. ROM DONE WITH PATIENT. PATIENT CURRENTLY HAS PUREWICK IN PLACE. PATIENT HAS A GOOD SUPPORT SYSTEM. PATIENT REPOSITIONED T/O SHIFT. PATIENT IS UP IN RECLINER AND PREFERS TO SLEEP IN THE RECLINER PER PATIENT. PATIENTS CHAIR IS LOCKED, CALL LIGHT IS IN REACH, AND ALL NEEDS ASSESSED-PATIENT DENIES NEEDS AT THIS TIME. CARE IS ONGOING.
[2025-02-13 05:42] LABS: BASOPHILS ABSOLUTE MAN 0.00 K/mm3 (0.00-0.23); BASOPHILS PERCENT MAN 0 % (0-2); EOSINOPHILS ABSOLUTE MAN 0.00 K/mm3 (0.00-0.68); EOSINOPHILS PERCENT MAN 0 % (0-6); LYMPHOCYTES ABSOLUTE MAN 1.90 K/mm3 (0.84-5.20); LYMPHOCYTES PERCENT MAN 7 % (21-46); MONOCYTES ABSOLUTE MAN 1.08 K/mm3 (0.16-1.47); MONOCYTES PERCENT MAN 4 % (4-13); NEUTROPHILS ABSOLUTE MAN 24.18 K/mm3 (1.96-9.15); SEG NEUTROPHILS PERCENT MAN 89 % (41-73)
[2025-02-13 08:50] VITALS: BP 94/58
[2025-02-13 11:02] VITALS: BP 97/66
--- NOTE | 2025-02-13 11:05 | NUR ---
Pt was evaluated by speech therapist and found to be aspirating pudding as well as thin liquids. The left side of the chest was found to be very diminished to auscultation. The pt has a poor lung xray this morning, per Dr. Rainey, with left side showing signs of aspiration. Pt was made NPO. Moved from chair to bed for thorough assessment, dressing changes as needed. Pt is doing her own oral care with suction swabs and mouth wash. Spo2 improved from 91-92 to 100% after repositioning, on the same Airvo settings. RR remains consistent at 24 breaths / min. Frequent moist productive sounding cough but with weak cough pt is hardly bringing any of the sputum up for self oral suctioning. She is not in any distress. Blood pressure is stable. Dressings on arms were replaced, refreshed due to bleeding on the right side, scant amount. Also placed optifoam dressing on the pannus fold where there are small open superficial sores, non draining. These appear to be from edema and moisture in the folds.
[2025-02-13] MEDS ORDERED: Insulin Regular 100 UNIT/ML 10ML Vial SC SCH (12:00)
[2025-02-13] MEDS ORDERED: TPN Consult Notification XX ONE (13:40)
--- NOTE | 2025-02-13 14:09 | NUR ---
Pt had spo2 86% . Oxygen delivery was increased, then pt was repositioned and encouraged to deep breathe and cough. Spo2 improved to93-96%. Airvo heated hi flow humidified Oxygen at 40 l/min and 75% to keep spo2 greater than 89%.
[2025-02-13 15:11] VITALS: BP 80/60
[2025-02-13] MEDS ORDERED: Sodium Chloride 3% For Inhalation 15 ML VIAL.NEB INH SCH (15:45)
[2025-02-13] MEDS ORDERED: Parenteral Electolytes 40 ML,Potassium Phosphate Dibasic 30 MM,Multivitamins 10 ML,ZINC... IV SCH (17:00)
[2025-02-13] MEDS ORDERED: Albuterol 2.5 MG/3 ML VIAL INH PRN (17:10)
--- NOTE | 2025-02-13 19:10 | NUR ---
PALLIATIVE CARE VISIT: REVIEWED MEDICAL RECORD, SPOKE TO MD PRIOR TO VISIT. MET WITH PT IN HER ROOM. SON IS PRESENT. DISCUSSED ADVANCE DIRECTIVE AND POA DOCUMENTS WITH PT AND ENCOURAGED TO COMPLETE. PT REPORTED SHE HAS A AD ON FILE WITH [facility]. SON BELIEVES POA WAS COMPLETED AND A COPY IS AT HOME. REQUESTED IF WE COULD HAVE A COPY AND SON STATED HE WOULD LOOK FOR DOCUMENT. DISCUSSED PT INABILITY TO GET PEGTUBE/DOBHOFF. PT STATED SHE WAS HOPING SHE COULD USE HER BILIARY DRAIN TUBE FOR USE OF TUBE FEEDINGS ALSO. WILL NEED TO DISCUSS THIS OPTION WITH MD IF IT IS A VIABLE SOLUTION.
[2025-02-13 19:33] VITALS: BP 102/68
[2025-02-13] MEDS ORDERED: Enoxaparin 80 MG/0.8 ML SYR SC SCH (21:00)
[2025-02-13 23:25] VITALS: BP 91/62
[2025-02-14] VITALS (9 sets, daily range): BP systolic 90–105; BP diastolic 56–77
[2025-02-14 04:00] LABS: BASOPHILS ABSOLUTE AUTO 0.09 K/mm3 (0.00-0.23); BASOPHILS PERCENT AUTO 0 % (0-2); EOSINOPHILS ABSOLUTE AUTO 0.01 K/mm3 (0.00-0.68); EOSINOPHILS PERCENT AUTO 0 % (0-6); Hematocrit 24.4 % (33.0-51.0); Hemoglobin 8.0 g/dL (11.5-16.0); IMMATURE GRAN ABSOLUTE AUTO 0.78 K/mm3 (0.00-0.10); IMMATURE GRAN PERCENT AUTO 3 % (0-1); LYMPHOCYTES ABSOLUTE AUTO 1.97 K/mm3 (0.84-5.20); LYMPHOCYTES PERCENT AUTO 7 % (21-46); MONOCYTES ABSOLUTE AUTO 1.68 K/mm3 (0.16-1.47); MONOCYTES PERCENT AUTO 6 % (4-13); Mean Corpuscular HGB Conc 32.8 g/dL (31.5-36.5); Mean Corpuscular Volume 91 fL (80-100); NEUTROPHILS ABSOLUTE AUTO 22.32 K/mm3 (1.96-9.15); NEUTROPHILS PERCENT AUTO 83 % (41-73); NRBC ABSOLUTE 2.88 K/mm3 (0.00-0.02); NRBC Auto 10.7 /100 WBC (0.0-0.2); Platelet Count 167 K/mm3 (150-400); RDW Coefficient Variation 28.4 % (11.7-14.2); RDW Standard Deviation 64.0 fL (35.1-46.3)
[2025-02-14 04:24] LABS: Albumin, Blood 1.9 g/dL (3.4-5.0); Anion Gap 6 mmol/L (3-11); Blood Urea Nitrogen 34 mg/dL (8-24); CO2, Blood 30 mmol/L (21-32); Calcium, Blood 8.5 mg/dL (8.5-10.1); Chloride, Blood 104 mmol/L (98-108); Creatinine, Blood 0.36 mg/dL (0.40-1.00); Glucose, Blood 147 mg/dL (70-99); Magnesium, Blood 2.3 mg/dL (1.6-2.4); Phosphorus, Blood 2.6 mg/dL (2.5-4.9); Potassium, Blood 4.1 mmol/L (3.5-5.5); Sodium, Blood 136 mmol/L (136-145)
--- NOTE | 2025-02-14 04:39 | NUR ---
SHIFT SUMMARY. PATIENT IS ALERT AND ORIENTED. PATIENT IS ABLE TO MAKE HER NEEDS KNOWN AND CALLS APPROPRIATELY. PATIENT PAINFUL AT TIMES THIS SHIFT-MEDICATED FOR PAIN ORDERED. PATIENT IS CURRENTLY IN BED RESTING. DRESSINGS TO BILATERAL ARMS CLEANED AND CHANGED-PATIENT TOLERATED WELL. RT ADJUSTED AIRVO-PATIENT IS CURRENTLY USING 60L/min AT 40% TOLERATING WELL AND SATTING >90%. PATIENTS EXTREMITIES ELEVATED ON PILLOWS. ROUNDING COMPLETE WITH NEEDS ASSESSED AND ADDRESSED. PATIENT IS RECEIVING TPN THROUGH POWER GLIDE AND KVO TO [facility]. PATIENTS COUGH IS WEAK-PATIENT ENCOURAGED TO USE INCENTIVE SPIROMETER AND FLUTTER VALVE-PATIENT USED FOR APPROX. 10 MINUTES THIS SHIFT. PATIENT IS NPO AFTER FAILED SWALLOW EVAL. PATIENT IS PLEASANT AND COOPERATIVE WITH CARE. ROUNDING DONE PER POLICY-NEEDS ASSESSED AND ADDRESSED AT ROUNDING. PATIENT IS CURRENTLY RESTING IN BED. BED IS LOCKED IN THE LOWEST POSITION WITH CALL LIGHT IN REACH. CARE IS ONGOING.
--- NOTE | 2025-02-14 09:40 | NUR ---
ASSUMED CARE OF THIS PT AT THIS TIME, REPORT RECEIVED FROM NANCY JUAREZ. PT WAS WORKING WOTH OCCUPATIONAL THERAPIST AT THE TIME. PT CURRENTLY NAPPING FAMILY AT BEDSIDE. WILL CONTINUE TO MONITOR
[2025-02-14] MEDS ORDERED: TPN Consult Notification XX ONE (11:30)
--- NOTE | 2025-02-14 14:06 | NUR ---
Spiritual Care Visit. Pt. is sitting up heavenly chair when she welcomed my visit. Facilitated an update. Pt. displayed evidence of being aware, engaged, and motivated. Pastoral encouragement and education is given. Pt. verbalized that she was fighting to get better. Prayed with Pt. Pt. verbalized gratitude for the spiritual care visit.
[2025-02-14] MEDS ORDERED: Parenteral Electolytes 40 ML,Potassium Phosphate Dibasic 30 MM,Multivitamins 10 ML,ZINC... IV SCH (17:00)
--- NOTE | 2025-02-14 19:08 | NUR ---
SHIFT SUMMARY PT LETHEARGIC THIS MORNING BUT MORE ALERT THIS EVENING. PT A/OX4 AND COOPERATIVE OF MOST CARE, REFUSED SHAKER VEST TREATMENT TODAY. PT BPS' REMAINED SOFT BUT STABLE. PT SATS IN THE 90'S ON AIRVO, RT TITRATED PT TO 4L 47%, THIS RN ABLE TO TITRATE FIO2 TO 40%, PT SATS REAMAIN IN THE 90'S. OTHER VSS THROUGHOUT SHIFT. PT REPORTED SLIGHT SOB THIS MORNING BUT DENIED SOB TOWARDS END OF SHIFT. TPN RUNNING PER ORDER, NEW BAG PRIMED AND HUNG THIS SHIFT.
[2025-02-15 03:31] VITALS: BP 93/60
[2025-02-15 03:57] LABS: Anion Gap 6.0 mmol/L (3-11); Blood Urea Nitrogen 27.0 mg/dL (8-24); CO2, Blood 31.0 mmol/L (21-32); Calcium, Blood 8.1 mg/dL (8.5-10.1); Chloride, Blood 105.0 mmol/L (98-108); Creatinine, Blood 0.36 mg/dL (0.40-1.00); Glucose, Blood 148.0 mg/dL (70-99); Magnesium, Blood 2.2 mg/dL (1.6-2.4); Phosphorus, Blood 2.3 mg/dL (2.5-4.9); Potassium, Blood 3.7 mmol/L (3.5-5.5); Sodium, Blood 138.0 mmol/L (136-145)
--- NOTE | 2025-02-15 04:45 | NUR ---
SHIFT SUMMARY THIS RN ASSUMED CARE OF PATIENT AT 1900. PT A&O X4. ON AIRVO 40L AND 34% FIO2 WITH SPO2 >92%. BP SOFT WITH SBP 90-100, MAP REMAINS >65. AFEBRILE. PT DENIES SOB. WEAK COUGH NOTED. ENCOURAGING IS/FLUTTER USE AND DEEP BREATHING AND COUGHING. SELF SUCTIONING. REPOSITIONING Q2HRS AND PRN. PT STAYED IN RECLINER T/O THIS SHIFT. DRESSINGS ON BILATERAL ARMS C/D/I. ELEVATING EXTREMETIES. MEDIPORT ACCESSED WITH NS TKO. PPN INFUSING PER EMAR THROUGH [facility]. MEDICATED PER EMAR T/O THIS SHIFT FOR PAIN IN RUQ/BACK/LEGS. DRESSING TO BILIARY DRAIN C/D/I. CALL LIGHT WITHIN REACH. THIS RN WILL REPORT TO ONCOMING DAYSHIFT RN.
[2025-02-15 08:00] VITALS: BP 101/55
[2025-02-15 11:35] VITALS: BP 107/97
[2025-02-15 15:44] VITALS: BP 92/58
--- NOTE | 2025-02-15 17:17 | NUR ---
SHIFT NOTE: PT A/OX4 ABLE TO MAKE NEEDS KNOWN. SHE IS ON AIRVO 50L 50% WITH SPO2 >90%. BLOOD PRESSURE HAS REMAINED STABLE WITH MAPS >65. SHE HAS ENDORESED PAIN IN HER RIGHT SIDE REQUIRING MEDICATIONS (SEE EMAR). SHE HAS BEENING USING HER IS AND FLUTTER VALVE TO INCREASE LUNG COMPLIANCE. SHE HAS BEEN IN THE RECLINER T/O SHIFT WITH STAFF REPOSITIONING T/O SHIFT. PT DECLINES MOVING TO THE BED. MEDIPORT IS ACCESSED WITH NS TKO, POWERGLIDE HAS PPN RUNNING. DRESSING TO BILIARY DRAINE IS C/D/I. DRESSING ON BILATERAL ARMS C/D/I. CALL LIGHT IN REACH, FAMILY AT BEDSIDE. CARE CONTINUES
[2025-02-15 20:08] VITALS: BP 107/71
[2025-02-15 23:21] VITALS: BP 110/70
[2025-02-16] VITALS (8 sets, daily range): BP systolic 89–108; BP diastolic 59–69
--- NOTE | 2025-02-16 05:19 | NUR ---
SHIFT SUMMARY PT ALERT AND ORIENTED X 4. PT REMAINE UP TO CHAIR THIS SHIFT. ADJUSTED PATIENT Q2 HOURS. FENTANTLY GIVEN PRN FOR PAIN. VSS. BP IMPROVED THIS SHIFT. SBP 90S OR HIGHER. MAP ABOVE 65. PT HFNC AT 50L 40% WITH SATS ABOVE 90%. NO C/O OF SOB. DENIES CHEST PAIN. DRESSING REMAINS ON RIGHT FLANK. ALL EXTREMETIES ELEVATED ON PILLOWS. PPN INFUSING.
[2025-02-16 05:55] LABS: BASOPHILS ABSOLUTE AUTO 0.02 K/mm3 (0.00-0.23); BASOPHILS PERCENT AUTO 0 % (0-2); EOSINOPHILS ABSOLUTE AUTO 0.01 K/mm3 (0.00-0.68); EOSINOPHILS PERCENT AUTO 0 % (0-6); Hematocrit 23.0 % (33.0-51.0); Hemoglobin 7.4 g/dL (11.5-16.0); IMMATURE GRAN ABSOLUTE AUTO 0.18 K/mm3 (0.00-0.10); IMMATURE GRAN PERCENT AUTO 1 % (0-1); LYMPHOCYTES ABSOLUTE AUTO 1.70 K/mm3 (0.84-5.20); LYMPHOCYTES PERCENT AUTO 11 % (21-46); MONOCYTES ABSOLUTE AUTO 1.70 K/mm3 (0.16-1.47); MONOCYTES PERCENT AUTO 11 % (4-13); Mean Corpuscular HGB Conc 32.2 g/dL (31.5-36.5); Mean Corpuscular Volume 93 fL (80-100); NEUTROPHILS ABSOLUTE AUTO 11.38 K/mm3 (1.96-9.15); NEUTROPHILS PERCENT AUTO 76 % (41-73); NRBC ABSOLUTE 0.33 K/mm3 (0.00-0.02); NRBC Auto 2.2 /100 WBC (0.0-0.2); Platelet Count 165 K/mm3 (150-400); RDW Coefficient Variation 30.4 % (11.7-14.2); RDW Standard Deviation 96.9 fL (35.1-46.3)
[2025-02-16 06:25] LABS: Alanine Aminotransfer (ALT/SGP 55.0 U/L (12-78); Albumin, Blood 1.5 g/dL (3.4-5.0); Albumin/Globulin Ratio 0.5 (0.8-1.8); Anion Gap 6.0 mmol/L (3-11); Aspartate Aminotrans (AST/SGOT 39.0 U/L (12-37); Bilirubin, Total 0.6 mg/dL (0.1-1.0); Blood Urea Nitrogen 25.0 mg/dL (8-24); CO2, Blood 30.0 mmol/L (21-32); Calcium, Blood 7.6 mg/dL (8.5-10.1); Chloride, Blood 104.0 mmol/L (98-108); Creatinine, Blood 0.33 mg/dL (0.40-1.00); Globulin, Blood 2.9 g/dL (2.2-4.0); Glucose, Blood 136.0 mg/dL (70-99); Magnesium, Blood 2.2 mg/dL (1.6-2.4); Phosphorus, Blood 2.4 mg/dL (2.5-4.9); Potassium, Blood 3.8 mmol/L (3.5-5.5); Sodium, Blood 136.0 mmol/L (136-145); Total Protein, Blood 4.4 g/dL (6.4-8.2)
--- NOTE | 2025-02-16 07:26 | NUR ---
ASSUMPTION OF CARE, PATIENT IN CHAIR, A/O. ON AIRVO. CONVERSATING.
[2025-02-16] MEDS ORDERED: Cefepime HCl 2,000 MG in NS 100 ML IV SCH (11:20)
--- NOTE | 2025-02-16 14:49 | NUR ---
PHYSICIAN CALL TO DR LOZANO REGARDING TACHYCARDIA 150'S. INFORMED HIM OF CURRENT BP AND LUNG SOUNDS. ORDERED ONE LITER BOLUS THEN NS 75 CONTINUOUS
[2025-02-16] MEDS ORDERED: NS 1,000 ML IV ONE (14:50)
[2025-02-16] MEDS ORDERED: NS 1,000 ML IV SCH (14:50)
--- NOTE | 2025-02-16 16:33 | NUR ---
SHIFT SUMMARY PATIENT IN CHAIR ALL OF THIS SHIFT, DECLINING TO GET IN BED DUE TO INCREASED PAIN WHILE IN BED. ACCEPTING OF VERY FREQUENT TURNS AND REPOSITIONS. REPORTING PAIN 5/10, GIVEN FENTANYL PER MAR WITH MILD RELIEF. ON AIRVO, SETTINGS NOT ADJUSTED FROM PREVIOUS SHIFT, SATING 92-93%. CONTINUES TO BE NPO, RECEIVING PPN, CHANGED PER MAR. NS BOLUS GIVEN WITHOUT COMPLICATION FOR INCREASED HR AND LOW BP, SEE PREVIOUS NOTE. USING YANKER AT BEDSIDE, SMALL AMOUNT OF THICK WHITE SPUTUM COUGHED UP. GENERALIZED EDEMA 2+, LIMBS ELEVATED. R ABD DRAIN IN PLACE, COVERED WITH GAUZE AND TEGADERM. L POWERGLIDE IN PLACE, RUNNING PPN. R CHEST PORT IN USE. BLOOD SUGARS REMAIN STABLE. CALL LIGHT IN REACH, ABLE TO MAKE NEEDS KNOWN.
[2025-02-17 05:24] VITALS: BP 101/64
[2025-02-17 05:33] LABS: BASOPHILS ABSOLUTE AUTO 0.03 K/mm3 (0.00-0.23); BASOPHILS PERCENT AUTO 0 % (0-2); EOSINOPHILS ABSOLUTE AUTO 0.01 K/mm3 (0.00-0.68); EOSINOPHILS PERCENT AUTO 0 % (0-6); Hematocrit 25.4 % (33.0-51.0); Hemoglobin 8.2 g/dL (11.5-16.0); IMMATURE GRAN ABSOLUTE AUTO 0.16 K/mm3 (0.00-0.10); IMMATURE GRAN PERCENT AUTO 1 % (0-1); LYMPHOCYTES ABSOLUTE AUTO 1.59 K/mm3 (0.84-5.20); LYMPHOCYTES PERCENT AUTO 11 % (21-46); MONOCYTES ABSOLUTE AUTO 1.78 K/mm3 (0.16-1.47); MONOCYTES PERCENT AUTO 12 % (4-13); Mean Corpuscular HGB Conc 32.3 g/dL (31.5-36.5); Mean Corpuscular Volume 94 fL (80-100); NEUTROPHILS ABSOLUTE AUTO 10.83 K/mm3 (1.96-9.15); NEUTROPHILS PERCENT AUTO 75 % (41-73); NRBC ABSOLUTE 0.11 K/mm3 (0.00-0.02); NRBC Auto 0.8 /100 WBC (0.0-0.2); Platelet Count 188 K/mm3 (150-400); RDW Coefficient Variation 30.6 % (11.7-14.2); RDW Standard Deviation 95.2 fL (35.1-46.3)
--- NOTE | 2025-02-17 05:38 | NUR ---
PT AXO X4 THIS SHIFT. REPOSITIONED IN RECLINER Q2H, REFUSING TO GET INTO BED. PT COMPLAINED OF PAIN 4-5, MEDICATED PER MD ORDER. SEE NOV. PT DESATTED TO 80 ON AIRVO, RT CALLED AND READJUSTED. DID NOT DESAT AGAIN THIS SHIFT. NS RUNNING AT 75ML/HR PER MD ORDER. PORT IN RIGHT CHEST GAVE ADEQUATE BLOOD THIS AM, TRANFUSING WITHOUT ISSUE.
[2025-02-17 05:58] LABS: Alanine Aminotransfer (ALT/SGP 54.0 U/L (12-78); Albumin, Blood 1.6 g/dL (3.4-5.0); Albumin/Globulin Ratio 0.5 (0.8-1.8); Anion Gap 7.0 mmol/L (3-11); Aspartate Aminotrans (AST/SGOT 45.0 U/L (12-37); Bilirubin, Total 0.6 mg/dL (0.1-1.0); Blood Urea Nitrogen 23.0 mg/dL (8-24); CO2, Blood 29.0 mmol/L (21-32); Calcium, Blood 8.1 mg/dL (8.5-10.1); Chloride, Blood 105.0 mmol/L (98-108); Creatinine, Blood 0.29 mg/dL (0.40-1.00); Globulin, Blood 3.2 g/dL (2.2-4.0); Glucose, Blood 128.0 mg/dL (70-99); Phosphorus, Blood 2.4 mg/dL (2.5-4.9); Potassium, Blood 3.6 mmol/L (3.5-5.5); Sodium, Blood 137.0 mmol/L (136-145); Total Protein, Blood 4.8 g/dL (6.4-8.2)
[2025-02-17 07:28] VITALS: BP 106/73
[2025-02-17 08:22] LABS: pH Blood Arterial 7.51 (7.35-7.45)
[2025-02-17 11:45] VITALS: BP 110/78
[2025-02-17] MEDS ORDERED: TPN Consult Notification XX ONE (13:25)
[2025-02-17 16:02] VITALS: BP 98/75
[2025-02-17] MEDS ORDERED: Parenteral Electolytes 40 ML,Potassium Phosphate Dibasic 30 MM,Multivitamins 10 ML,ZINC... IV SCH (17:00)
--- NOTE | 2025-02-17 18:14 | NUR ---
SHIFT SUMMARY; ASSUMED CARE AT 0700. A/A/0X4. APPEARS TO BE IN DISTRESS AT SHIFT CHANGE, REPORTS NEW ONSET OF ABD PAIN AND WORK OF BREATHING HAS INCREASED. ABD FIRM AND DISTENDED, MOVED FROM RECLINER CHAIR TO BED WITH LIFT. DESATS TO 80 WHEN MOVING, ON AIR VO AT 45L 44%. INCREASED FLOW TO 60L, SATS REMAIN IN LOW 80'S. DR. PEDROZA NOTIFIED, RT TO ROOM PLACED ON BIPAP, ABD AND CHEST XRAY ORDERED. SATS INCREASED TO 95% WITH BIPAP. DR. MELO TO ROOM TO EVALUATE. Q2 REPOSITIONING DURING SHIFT. TPN STARTED TO MEDIPORT. ORAL CARE DURING SHIFT. NS INFUSING AT 75ML/HR PER EMAR. PAIN MEDS PER EMAR. MOVES ARMS DURING SHIFT BUT STATES IS TO WEAK TO LIFT OR MOVE LEGS. BED BATH AND LINEN CHANGE. MEPILEX CHANGED TO COCCYX AND LEFT INSIDE CALF AREA. FAMILY AT BEDSIDE MOST OF SHIFT. REMAINS NPO. WILL CONTINUE TO MONITOR AND TREAT UNTIL REPORT GIVEN TO NOC SHIFT RN.
[2025-02-17 19:35] VITALS: BP 99/70
[2025-02-17 23:11] VITALS: BP 98/62
[2025-02-18 03:31] VITALS: BP 94/61
[2025-02-18 03:45] LABS: BASOPHILS ABSOLUTE AUTO 0.02 K/mm3 (0.00-0.23); BASOPHILS PERCENT AUTO 0 % (0-2); EOSINOPHILS ABSOLUTE AUTO 0.02 K/mm3 (0.00-0.68); EOSINOPHILS PERCENT AUTO 0 % (0-6); Hematocrit 24.9 % (33.0-51.0); Hemoglobin 7.9 g/dL (11.5-16.0); IMMATURE GRAN ABSOLUTE AUTO 0.13 K/mm3 (0.00-0.10); IMMATURE GRAN PERCENT AUTO 1 % (0-1); LYMPHOCYTES ABSOLUTE AUTO 1.60 K/mm3 (0.84-5.20); LYMPHOCYTES PERCENT AUTO 12 % (21-46); MONOCYTES ABSOLUTE AUTO 1.69 K/mm3 (0.16-1.47); MONOCYTES PERCENT AUTO 13 % (4-13); Mean Corpuscular HGB Conc 31.7 g/dL (31.5-36.5); Mean Corpuscular Volume 95 fL (80-100); NEUTROPHILS ABSOLUTE AUTO 10.01 K/mm3 (1.96-9.15); NEUTROPHILS PERCENT AUTO 74 % (41-73); NRBC ABSOLUTE 0.04 K/mm3 (0.00-0.02); NRBC Auto 0.3 /100 WBC (0.0-0.2); Platelet Count 187 K/mm3 (150-400); RDW Coefficient Variation 30.0 % (11.7-14.2); RDW Standard Deviation 96.8 fL (35.1-46.3)
[2025-02-18 04:10] LABS: Alanine Aminotransfer (ALT/SGP 48 U/L (12-78); Albumin, Blood 1.5 g/dL (3.4-5.0); Albumin/Globulin Ratio 0.4 (0.8-1.8); Anion Gap 6 mmol/L (3-11); Aspartate Aminotrans (AST/SGOT 41 U/L (12-37); Bilirubin, Total 0.5 mg/dL (0.1-1.0); Blood Urea Nitrogen 25 mg/dL (8-24); CO2, Blood 27 mmol/L (21-32); Calcium, Blood 8.1 mg/dL (8.5-10.1); Chloride, Blood 107 mmol/L (98-108); Creatinine, Blood 0.26 mg/dL (0.40-1.00); Globulin, Blood 3.5 g/dL (2.2-4.0); Glucose, Blood 121 mg/dL (70-99); Potassium, Blood 3.8 mmol/L (3.5-5.5); Sodium, Blood 136 mmol/L (136-145); Total Protein, Blood 5.0 g/dL (6.4-8.2); Triglycerides 82 mg/dL (30-160)
--- NOTE | 2025-02-18 06:38 | NUR ---
SHIFT SUMMARY: PT A&OX4 CALM AND COOPERATIVE. VSS. TOLERATED BIPAP MOST OF NIGHT. MAINTAINING >92%. PT REPORTED SHE NEEDED A BREAK FROM BIPAP AND PUT BACK ON AIRVO 50L 45%. TWO BM DURING SHIFT. LOOSE STOOLS. LINEN AND GOWN CHANGE PERFORMED. MEPIPLEX CHANGED ON COCCYX. NS @ 75ML/HR. BED IS LOW AND LOCKED. CALL LIGHT WITHIN REACH. WILL CONTINUE PLAN OF CARE TILL REPORT GIVEN TO NOC NURSE.
[2025-02-18 07:24] LABS: Magnesium, Blood 2.1 mg/dL (1.6-2.4); Phosphorus, Blood 2.1 mg/dL (2.5-4.9)
[2025-02-18 07:31] VITALS: BP 94/55
[2025-02-18 11:14] VITALS: BP 110/76
[2025-02-18] MEDS ORDERED: TPN Consult Notification XX ONE (11:25)
[2025-02-18] MEDS ORDERED: Furosemide 10 MG / ML 2ML Vial IV SCH (13:00)
--- NOTE | 2025-02-18 13:15 | NUR ---
Spiritual care visit conducted Janet (pt) has just gotten off the phone. Offered pt a brief visit, pt declines because of a particularly busy night, but is friendly. Offered pt a prayer before leaving. She accepted and thanked me for the visit.
[2025-02-18 16:11] VITALS: BP 104/69
[2025-02-18] MEDS ORDERED: Parenteral Electolytes 40 ML,Potassium Phosphate Dibasic 30 MM,Multivitamins 10 ML,ZINC... IV SCH (17:00)
--- NOTE | 2025-02-18 18:50 | NUR ---
SHIFT SUMMARY; ASSUMED CARE AT 0700. A/A/OX4. AIR VO ON ARRIVAL. Q2 TURNS, VSS. EVAL BY SPEECH TODAY AND COMPLETED BARIUM SWALLOW. PLACED ON SOFT DIET, TOLERATING WELL. CONTINUES TO USE IS AND FLUTTER, PRECUSSION BY RT. SATS MAINTAINED >95%. AIR VO DECREASED BY RT TO 40L 28%. LOWER EXTREMETIES REMAIN WEAK. ABLE TO FEED SELF. LIEN CHANGE AND HILARY CARE DURING SHIFT. PURWICK CHANGED. MEPILEX TO COCCYX AND LEFT CALF C/D/I. TPN INFUSING TO MEDIPORT. WILL CONTINUE TO MONITOR AND TREAT UNTIL REPORT GIVEN TO NOC SHIFT RN.
[2025-02-18 20:34] VITALS: BP 103/70
[2025-02-18 23:23] VITALS: BP 106/82
[2025-02-19 04:05] VITALS: BP 101/74
--- NOTE | 2025-02-19 05:27 | NUR ---
SHIFT SUMMARY PT IS A&O X4, ABLE TO MAKE NEEDS KNOWN. VSS, AFEBRILE, SPO2 >95% ON AIRVO 30L 31%. PT DID DESAT TO 80 S AT APPROXIMATELY 0130, PLACED ON BIPAP, SPO2 REMAINED ABOVE 93%. PT DENIES SOB OR CP. PAIN MEDICATED PER EMAR. TPN INFUSING TO MEDIPORT. PT REPOSITIONED FREQUENTLY. PW IN PLACE DRAINING DARK URINE. BED IN LOWEST POSITION, CALL LIGHT IN REACH, BREATHING IS EVEN AND UNLABORED.
[2025-02-19 07:41] VITALS: BP 111/77
[2025-02-19 08:35] LABS: BASOPHILS ABSOLUTE AUTO 0.02 K/mm3 (0.00-0.23); BASOPHILS PERCENT AUTO 0 % (0-2); EOSINOPHILS ABSOLUTE AUTO 0.02 K/mm3 (0.00-0.68); EOSINOPHILS PERCENT AUTO 0 % (0-6); Hematocrit 26.1 % (33.0-51.0); Hemoglobin 8.3 g/dL (11.5-16.0); IMMATURE GRAN ABSOLUTE AUTO 0.10 K/mm3 (0.00-0.10); IMMATURE GRAN PERCENT AUTO 1 % (0-1); LYMPHOCYTES ABSOLUTE AUTO 1.72 K/mm3 (0.84-5.20); LYMPHOCYTES PERCENT AUTO 17 % (21-46); MONOCYTES ABSOLUTE AUTO 1.41 K/mm3 (0.16-1.47); MONOCYTES PERCENT AUTO 14 % (4-13); Mean Corpuscular HGB Conc 31.8 g/dL (31.5-36.5); Mean Corpuscular Volume 95 fL (80-100); NEUTROPHILS ABSOLUTE AUTO 6.68 K/mm3 (1.96-9.15); NEUTROPHILS PERCENT AUTO 67 % (41-73); NRBC ABSOLUTE 0.02 K/mm3 (0.00-0.02); NRBC Auto 0.2 /100 WBC (0.0-0.2); Platelet Count 177 K/mm3 (150-400); RDW Coefficient Variation 30.4 % (11.7-14.2); RDW Standard Deviation 96.9 fL (35.1-46.3)
[2025-02-19 08:54] LABS: Alanine Aminotransfer (ALT/SGP 48.0 U/L (12-78); Albumin, Blood 1.8 g/dL (3.4-5.0); Albumin/Globulin Ratio 0.5 (0.8-1.8); Anion Gap 6.0 mmol/L (3-11); Aspartate Aminotrans (AST/SGOT 39.0 U/L (12-37); Bilirubin, Total 0.6 mg/dL (0.1-1.0); Blood Urea Nitrogen 21.0 mg/dL (8-24); CO2, Blood 27.0 mmol/L (21-32); Calcium, Blood 8.3 mg/dL (8.5-10.1); Chloride, Blood 107.0 mmol/L (98-108); Creatinine, Blood 0.27 mg/dL (0.40-1.00); Globulin, Blood 3.3 g/dL (2.2-4.0); Glucose, Blood 115.0 mg/dL (70-99); Magnesium, Blood 1.9 mg/dL (1.6-2.4); Phosphorus, Blood 2.2 mg/dL (2.5-4.9); Potassium, Blood 3.9 mmol/L (3.5-5.5); Sodium, Blood 136.0 mmol/L (136-145); Total Protein, Blood 5.1 g/dL (6.4-8.2)
[2025-02-19] MEDS ORDERED: Insulin Regular 100 UNIT/ML 10ML Vial SC SCH (11:30)
[2025-02-19 11:32] VITALS: BP 111/78
[2025-02-19 16:01] VITALS: BP 122/88
--- NOTE | 2025-02-19 18:16 | NUR ---
SHIFT SUMMARY; ASSUMED CARE AT 0700. A/A/OX4. WORKED WITH RT AND AM SHIFT CHANGE. PLACED ON AIRVO BY RT. SHORTLY AFTER PLACEMENT SATS 80% WITH DIFFICULTY RETURNING TO BASELINE. PLACED ON BIPAP BY RT, BLOOD PRESSURE STABLE, SATS 95% ON BIPAP. SLEEPS MOST OF AM. AIR VO IN AFTERNOON AND TOLERATING WELL. FAMILY AT BEDSIDE, Q2 TURNS, CHG BATH TODAY AND ORAL CARE. EATING SMALL AMOUNTS OF SOFT FOOD, TOLERATING WELL. TPN INFUSING PER ORDERS, WILL CONTINUE TO MONITOR AND TREAT UNTIL REPORT GIVEN AT CHANGE OF SHIFT TO ONCOMING NOC SHIFT RN.
[2025-02-19 21:05] VITALS: BP 118/84
[2025-02-19 23:54] VITALS: BP 116/82
[2025-02-20] VITALS (7 sets, daily range): BP systolic 95–131; BP diastolic 72–96
--- NOTE | 2025-02-20 04:58 | NUR ---
SHIFT SUMMARY PT ALERT AND ORIENTED X 4. PT'S C/O OF PAIN, WELL CONTROLLED ON PRN NORCO. PT REMAINED ON AIRVO T/O THE NIGHT-OFFERED TO SWITCH TO BIPAP BUT PT DECLINED SHE FELT HER BREATHING WAS FINE ON THE AIRVO. LUNG SOUNDS LESS COARSE COMPARED TO PREVIOUS SHIFT. PRODUCTIVE COUGH. ENCOURAGED IS USE. PT HR SR-ST IN 90S-100S HR. NO C/P. VSS. PT REPOSISTIONED Q2.
[2025-02-20 05:52] LABS: BASOPHILS ABSOLUTE AUTO 0.03 K/mm3 (0.00-0.23); BASOPHILS PERCENT AUTO 0 % (0-2); EOSINOPHILS ABSOLUTE AUTO 0.04 K/mm3 (0.00-0.68); EOSINOPHILS PERCENT AUTO 0 % (0-6); Hematocrit 26.5 % (33.0-51.0); Hemoglobin 8.3 g/dL (11.5-16.0); IMMATURE GRAN ABSOLUTE AUTO 0.09 K/mm3 (0.00-0.10); IMMATURE GRAN PERCENT AUTO 1 % (0-1); LYMPHOCYTES ABSOLUTE AUTO 1.95 K/mm3 (0.84-5.20); LYMPHOCYTES PERCENT AUTO 22 % (21-46); MONOCYTES ABSOLUTE AUTO 1.36 K/mm3 (0.16-1.47); MONOCYTES PERCENT AUTO 15 % (4-13); Mean Corpuscular HGB Conc 31.3 g/dL (31.5-36.5); Mean Corpuscular Volume 97 fL (80-100); NEUTROPHILS ABSOLUTE AUTO 5.45 K/mm3 (1.96-9.15); NEUTROPHILS PERCENT AUTO 61 % (41-73); NRBC ABSOLUTE 0.00 K/mm3 (0.00-0.02); NRBC Auto 0.0 /100 WBC (0.0-0.2); Platelet Count 169 K/mm3 (150-400); RDW Coefficient Variation 30.2 % (11.7-14.2); RDW Standard Deviation 98.9 fL (35.1-46.3)
[2025-02-20 06:14] LABS: Alanine Aminotransfer (ALT/SGP 52.0 U/L (12-78); Albumin, Blood 1.7 g/dL (3.4-5.0); Albumin/Globulin Ratio 0.5 (0.8-1.8); Anion Gap 6.0 mmol/L (3-11); Aspartate Aminotrans (AST/SGOT 47.0 U/L (12-37); Bilirubin, Total 0.5 mg/dL (0.1-1.0); Blood Urea Nitrogen 19.0 mg/dL (8-24); CO2, Blood 27.0 mmol/L (21-32); Calcium, Blood 8.2 mg/dL (8.5-10.1); Chloride, Blood 107.0 mmol/L (98-108); Creatinine, Blood 0.28 mg/dL (0.40-1.00); Globulin, Blood 3.6 g/dL (2.2-4.0); Glucose, Blood 126.0 mg/dL (70-99); Magnesium, Blood 2.2 mg/dL (1.6-2.4); Potassium, Blood 4.4 mmol/L (3.5-5.5); Sodium, Blood 136.0 mmol/L (136-145); Total Protein, Blood 5.3 g/dL (6.4-8.2)
[2025-02-20] MEDS ORDERED: Albumin (Human) 25gm/100ml 100 ML IV SCH (11:00)
--- NOTE | 2025-02-20 11:08 | NUR ---
Spiritual care visit conducted Janet (mar) is awake and alert lying down. Pt describes pain resonating from her left side and felt that she was not given pain medication in a timely enough fasion to be ahead of it. Pt says she "keeps on pushing through." Pt remains positive despite the pain and is friendly. Offered prayer, pt accepted and appeared relieved by the prayer and visit. 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
[2025-02-20] MEDS ORDERED: TPN Consult Notification XX ONE (13:20)
[2025-02-20] MEDS ORDERED: Parenteral Electolytes 40 ML,Potassium Phosphate Dibasic 30 MM,Multivitamins 10 ML,ZINC... IV SCH (17:00)
--- NOTE | 2025-02-20 19:36 | NUR ---
Shift Summary Pt alert, oriented x4; anxious at times, cooperative with care. Pt resting in bed, q2 turn. Pt reports pain to upper abd/back, medicated per orders. Pt denies chest pain/pressure, nausea, and dizziness. Tele sinus/sinus tach 90-110's, per agent telegrapher having runs of svt in 130; md aware. Bp soft but stable. Edema noted to ble, bue, abd. Pt on Airvo this am 30l 37%, pt desaturated down to 80's, attmepted to titrate to 30L 48%, pt continued to desaturate placed on bipap initial settings 14/8 45% fi02, titrated to 60%. This evening attempted to take off bipap, pt desaturated to 82% replaced bipap. This am patient using flutter and i/s. Abd firm, tender, +bt. Coccyx mepilex replaced, skin is red but remains blanchable. Other vss. Call light within reach. Report given to oncoming rn.
[2025-02-21] VITALS (9 sets, daily range): BP systolic 94–106; BP diastolic 58–71
[2025-02-21 03:54] LABS: BASOPHILS ABSOLUTE AUTO 0.04 K/mm3 (0.00-0.23); BASOPHILS PERCENT AUTO 0 % (0-2); EOSINOPHILS ABSOLUTE AUTO 0.03 K/mm3 (0.00-0.68); EOSINOPHILS PERCENT AUTO 0 % (0-6); Hematocrit 24.1 % (33.0-51.0); Hemoglobin 7.7 g/dL (11.5-16.0); IMMATURE GRAN ABSOLUTE AUTO 0.08 K/mm3 (0.00-0.10); IMMATURE GRAN PERCENT AUTO 1 % (0-1); LYMPHOCYTES ABSOLUTE AUTO 2.28 K/mm3 (0.84-5.20); LYMPHOCYTES PERCENT AUTO 24 % (21-46); MONOCYTES ABSOLUTE AUTO 1.08 K/mm3 (0.16-1.47); MONOCYTES PERCENT AUTO 11 % (4-13); Mean Corpuscular HGB Conc 32.0 g/dL (31.5-36.5); Mean Corpuscular Volume 97 fL (80-100); NEUTROPHILS ABSOLUTE AUTO 5.94 K/mm3 (1.96-9.15); NEUTROPHILS PERCENT AUTO 63 % (41-73); NRBC ABSOLUTE 0.00 K/mm3 (0.00-0.02); NRBC Auto 0.0 /100 WBC (0.0-0.2); Platelet Count 142 K/mm3 (150-400); RDW Coefficient Variation 29.4 % (11.7-14.2); RDW Standard Deviation 96.4 fL (35.1-46.3)
[2025-02-21 04:09] LABS: Alanine Aminotransfer (ALT/SGP 45.0 U/L (12-78); Albumin, Blood 1.4 g/dL (3.4-5.0); Albumin/Globulin Ratio 0.4 (0.8-1.8); Anion Gap 6.0 mmol/L (3-11); Aspartate Aminotrans (AST/SGOT 40.0 U/L (12-37); Bilirubin, Total 0.5 mg/dL (0.1-1.0); Blood Urea Nitrogen 18.0 mg/dL (8-24); CO2, Blood 29.0 mmol/L (21-32); Calcium, Blood 8.0 mg/dL (8.5-10.1); Chloride, Blood 107.0 mmol/L (98-108); Creatinine, Blood 0.27 mg/dL (0.40-1.00); Globulin, Blood 3.5 g/dL (2.2-4.0); Glucose, Blood 119.0 mg/dL (70-99); Magnesium, Blood 2.0 mg/dL (1.6-2.4); Phosphorus, Blood 2.6 mg/dL (2.5-4.9); Potassium, Blood 4.3 mmol/L (3.5-5.5); Sodium, Blood 138.0 mmol/L (136-145); Total Protein, Blood 4.9 g/dL (6.4-8.2)
--- NOTE | 2025-02-21 06:17 | NUR ---
PT HAD RUN OF SVT WHEN TURNING PATIENT TO CLEAN HER. PT HR WENT UP TO 150 BRIEFLY BEFORE RETURNING TO LOW 100S. MD MESHA MADE AWARE. NO NEW ORDERS
--- NOTE | 2025-02-21 06:20 | NUR ---
SHIFT SUMMARY PT AX0 X 4. PT TOLERATING BEING ON AIRVO MOST OF NIGHT. PT DID NOT WANT TO USE BIPAP SHE FELT HER BREATHING WAS COMFORTABLE ON THE AIRVO. PT O2 SATS REMAINED ABOVE 90% ON AIRVO. HR REMAINED IN 90S TO 100S. PT DID HAVE RUN OF SVT WITH CLEANING PATIENT-MD AWARE. NO NEW ORDERS. DENIES C/P. PT Q2 TURNED. PT PAIN CONTROLLED WITH PRN OXYCODONE Q4. VSS BESIDES ONE RUN OF SVT.
[2025-02-21] MEDS ORDERED: Metoprolol Tartrate 1 MG/ML 5 ML VIAL IV PRN (13:00)
[2025-02-21] MEDS ORDERED: Metoprolol Tartrate 1 MG/ML 5 ML VIAL IV ONE (13:00)
--- NOTE | 2025-02-21 13:02 | NUR ---
AFTERNOON NOTE Patient started coughing up phelm, heart rate increased to 150's, ekg compelted; attempted to have patient bear down and blow into a syringe with no improvement to rate. BP stable. Assymptomatic. notified. New order for metoprolol 2.5 mg iv given, heart rate 90's, bp remains stable. Lue noted to be swollen, removed powerglide, pressure held, and wrapped with coban and gauze. Shortly after, patient desaturated on airvo, refusing to put on the bipap at this time. Airvo upped to 40l and 64% fi02. New orders for Provider consult with Dr Crawford, rn relief charge notified via cell phone.
[2025-02-21] MEDS ORDERED: Ipratropium/Albuterol SulF 2.5-0.5MG/3 ML Amp INH SCH (18:00)
--- NOTE | 2025-02-21 18:25 | NUR ---
Shift Summary Dr Crawford at bedside, plans for chest CT. Patient taken to CT with RT and RN. Once back to room patient on airvo 40l 64%, titrated to 40l 80%, spo2 >88%. This evening patient found 80% on 40l 80%, drining while at 30 degree angle. Patient placed on bipap 14/8 45%, saturations dropped to 78%, maxed out 100% for 4 minutes, and titrated it down to 80%; current settings 14/8 45%. Patient educated that she needs to be at a 90 degree angle while eating and drinking. Pt expresses that it is incomfortable. Other vss. Tele sinus/sinus tach 90-110's, bp stable. abd mod distended, firm, tender. Pt reporting pain to abd and back, medciated per orders. Pt continueing on TPN. Call light within reach.
--- NOTE | 2025-02-21 20:23 | NUR ---
ASSUMPTION OF CARE: ASSUMED CARE OF PT AT 1910. PT SITTING UP IN BED TALKING TO HER SONS. PT ALERT AND ORIENTED X4, MAKING NEEDS KNOWN AND FOLLOWING DIRECTION. PT DENIES PAIN CURRENTLY. ON AIRVO 40L, 70%, SATTING >95%. DENIES SOB. LUNGS COARSE T/O. HAS HARSH COUGH AT TIMES, COUGHING UP SMALL AMOUNTS OF THICK SPUTUM. CREDIT REPORTER IN PLACE, ST WITH HR 120'S. SBP 101 WITH MAP >65. PUREWICK IN PLACE, DRAINING TO SUCTION. PG TO JERRI PATENT AND SALINE LOCKED. PORT TO RIGHT CHEST WALL HAS TPN INFUSING AT 105 ML/HR. TOLERATING PO INTAKE. BED LOW AND LOCKED, CALL LIGHT IN REACH.
[2025-02-22] VITALS (27 sets, daily range): BP systolic 85–122; BP diastolic 59–85
[2025-02-22 01:36] LABS: pH Blood Arterial 7.48 (7.35-7.45)
[2025-02-22 04:30] LABS: BASOPHILS ABSOLUTE AUTO 0.04 K/mm3 (0.00-0.23); BASOPHILS PERCENT AUTO 0 % (0-2); EOSINOPHILS ABSOLUTE AUTO 0.07 K/mm3 (0.00-0.68); EOSINOPHILS PERCENT AUTO 1 % (0-6); Hematocrit 22.1 % (33.0-51.0); Hemoglobin 7.1 g/dL (11.5-16.0); IMMATURE GRAN ABSOLUTE AUTO 0.07 K/mm3 (0.00-0.10); IMMATURE GRAN PERCENT AUTO 1 % (0-1); LYMPHOCYTES ABSOLUTE AUTO 2.26 K/mm3 (0.84-5.20); LYMPHOCYTES PERCENT AUTO 22 % (21-46); MONOCYTES ABSOLUTE AUTO 1.04 K/mm3 (0.16-1.47); MONOCYTES PERCENT AUTO 10 % (4-13); Mean Corpuscular HGB Conc 32.1 g/dL (31.5-36.5); Mean Corpuscular Volume 97 fL (80-100); NEUTROPHILS ABSOLUTE AUTO 6.99 K/mm3 (1.96-9.15); NEUTROPHILS PERCENT AUTO 67 % (41-73); NRBC ABSOLUTE 0.00 K/mm3 (0.00-0.02); NRBC Auto 0.0 /100 WBC (0.0-0.2); Platelet Count 115 K/mm3 (150-400); RDW Coefficient Variation 28.7 % (11.7-14.2); RDW Standard Deviation 93.5 fL (35.1-46.3)
[2025-02-22 04:48] LABS: Alanine Aminotransfer (ALT/SGP 38.0 U/L (12-78); Albumin, Blood 1.4 g/dL (3.4-5.0); Albumin/Globulin Ratio 0.5 (0.8-1.8); Anion Gap 5.0 mmol/L (3-11); Aspartate Aminotrans (AST/SGOT 34.0 U/L (12-37); Bilirubin, Total 0.4 mg/dL (0.1-1.0); Blood Urea Nitrogen 19.0 mg/dL (8-24); CO2, Blood 29.0 mmol/L (21-32); Calcium, Blood 7.8 mg/dL (8.5-10.1); Chloride, Blood 106.0 mmol/L (98-108); Creatinine, Blood 0.25 mg/dL (0.40-1.00); Globulin, Blood 3.1 g/dL (2.2-4.0); Glucose, Blood 117.0 mg/dL (70-99); Magnesium, Blood 2.0 mg/dL (1.6-2.4); Phosphorus, Blood 2.6 mg/dL (2.5-4.9); Potassium, Blood 4.2 mmol/L (3.5-5.5); Sodium, Blood 136.0 mmol/L (136-145); Total Protein, Blood 4.5 g/dL (6.4-8.2)
--- NOTE | 2025-02-22 05:34 | NUR ---
SHIFT SUMMARY: PT REMAINS ALERT AND ORIENTED T/O THE SHIFT. PLEASANT WITH CARE, FOLLOWS DIRECTION AND MAKES NEEDS KNOWN. PT HAD EPISODE OF DESATURATION THIS SHIFT WITH SPO2 LOW 84%. AIRVO INCREASED PER RT TO 55L, 88% FIO2. SATS IMPROVED AFTER INCREASE TO 92-99%. PT DENIES SOB. PT COUGHING UP THICK, WHITE, TANNISH SECRETIONS THIS SHIFT. ABLE TO SUCTION HERSELF NEEDED. PT RECEIVED CPT THIS SHIFT PER RT. ENDORSES PAIN T/O THE SHIFT TO MID BACK. MEDICATED PER EMAR. ABLE TO REST OFF AND ON. CARE CONNECTOR ON, PT SR/ST WITH HR RANGING FROM 80-140'S. SBP SOFT THIS AM AT 90'S, MAP >65. DENIES CP. TPN CONTINUES INFUSING AT 105 ML/HR THROUGH PORT TO RIGHT CHEST WALL. POWERGLIDE TO JERRI REMAINS PATENT. PT TO RECEIVE 1 UNIT PRBC THIS AM WHEN SENT FROM BLOOD BANK. PUREWICK IN PLACE, DRAINING TO SUCTION VI COLORED URINE. TOLERATING PO INTAKE. BED LOCKED, CALL LIGHT IN REACH.
--- NOTE | 2025-02-22 14:00 | NUR ---
UPDATE HR CONTINUES TO BE ELEVATED IN THE 140'S AFTER TWO DOSES OF IV LOPRESSOR. BP NOW SOFT WITH SYSTOLIC IN THE 80'S. SEE VITAL SIGNS. PT ASYMPTOMATIC. DR. HOOK CALLED AND NOTIFIED.
[2025-02-22] MEDS ORDERED: Furosemide 10 MG / ML 2ML Vial IV SCH (16:00)
--- NOTE | 2025-02-22 16:46 | NUR ---
SHIFT SUMMARY PT REMAINS ALERT AND ORIENTED. PT HAS BEEN TITRATED DOWN TO 4L NC WITH SATS REMAINING ABOVE 90%. PT HAS PRODUCTIVE COUGH WITH THICK WHITE SPUTUM. HR HAS IMPROVED THIS AFTERNOON AND NOW TRENDING IN THE 100'S. BP HAS IMPROVED TO SYSTOLIC IN THE 100'S. PT COMPLAINS OF CHRONIC PAIN THROUGHOUT SHIFT AND MEDICATED PER EMAR. PT VOIDING USING PUREWICK DEVICE. NO BM THIS SHIFT. ENCOURAGED PT TO ATTEMPT TO GET UP OUT OF BED TO RECLINER, BUT PT STATED SHE WANTED TO REST. PT ENOURAGED TO USE FLUTTER AND INCENTINVE SPIROMETER. TPN INFUSING PER MEDIPORT ORDERED. PT REPOSITIONED Q2H, BUT DOES NOT TOLERATE LAYING ON RIGHT SIDE. WILL CONTINUE PLAN OF CARE AND REPORT TO ONCOMING LARRY
[2025-02-23 03:55] VITALS: BP 119/64
[2025-02-23 04:24] LABS: Magnesium, Blood 2.0 mg/dL (1.6-2.4); Phosphorus, Blood 2.6 mg/dL (2.5-4.9)
[2025-02-23 05:27] LABS: BASOPHILS ABSOLUTE AUTO 0.04 K/mm3 (0.00-0.23); BASOPHILS PERCENT AUTO 0 % (0-2); EOSINOPHILS ABSOLUTE AUTO 0.09 K/mm3 (0.00-0.68); EOSINOPHILS PERCENT AUTO 1 % (0-6); Hematocrit 25.8 % (33.0-51.0); Hemoglobin 8.2 g/dL (11.5-16.0); IMMATURE GRAN ABSOLUTE AUTO 0.07 K/mm3 (0.00-0.10); IMMATURE GRAN PERCENT AUTO 1 % (0-1); LYMPHOCYTES ABSOLUTE AUTO 2.35 K/mm3 (0.84-5.20); LYMPHOCYTES PERCENT AUTO 22 % (21-46); MONOCYTES ABSOLUTE AUTO 0.97 K/mm3 (0.16-1.47); MONOCYTES PERCENT AUTO 9 % (4-13); Mean Corpuscular HGB Conc 31.8 g/dL (31.5-36.5); Mean Corpuscular Volume 98 fL (80-100); NEUTROPHILS ABSOLUTE AUTO 7.26 K/mm3 (1.96-9.15); NEUTROPHILS PERCENT AUTO 67 % (41-73); NRBC ABSOLUTE 0.00 K/mm3 (0.00-0.02); NRBC Auto 0.0 /100 WBC (0.0-0.2); Platelet Count 106 K/mm3 (150-400); RDW Coefficient Variation 26.8 % (11.7-14.2); RDW Standard Deviation 91.1 fL (35.1-46.3)
[2025-02-23 05:44] LABS: Anion Gap 7.0 mmol/L (3-11); Blood Urea Nitrogen 20.0 mg/dL (8-24); CO2, Blood 28.0 mmol/L (21-32); Calcium, Blood 8.4 mg/dL (8.5-10.1); Chloride, Blood 104.0 mmol/L (98-108); Creatinine, Blood 0.24 mg/dL (0.40-1.00); Glucose, Blood 123.0 mg/dL (70-99); Potassium, Blood 3.8 mmol/L (3.5-5.5); Sodium, Blood 135.0 mmol/L (136-145)
--- NOTE | 2025-02-23 06:02 | NUR ---
SHIFT SUMMARY PT AX0 X 4. PT REMAINED ON 4L NC. DID HAVE ONE EPISODE OF SOB BUT NO OXYGEN REMAINED AT 98% AND IMPROVED WHEN SITTING HOB UP. NO INTERVENTION NECESSARY. PT HR 90S-110S. DID BRIEFLY INCREASE TO 140S BUT IMMEDIATLY RETURNED TO 110S. SINUS RHYTHM TO SINUS TACH ON MONITOR. BP IMPROVED TO SBP IN THE 110S. PRN OXYCODONE AND PRN FENTANYL GIVEN FOR PAIN. PATIENT Q2 TURNED. PATIENT SLEPT WELL OVERNIGHT.
[2025-02-23 07:42] VITALS: BP 93/76
--- NOTE | 2025-02-23 08:40 | NUR ---
UPDATE PT'S HR UP TO 150'S THIS AM SINCE APPROXIMATELY 0740. BP SOFT, BUT MAP >65. PT MEDICATED PER EMAR FOR HR AND NOW BACK TO THE 100'S.
[2025-02-23 11:39] VITALS: BP 106/85
[2025-02-23] MEDS ORDERED: Sodium Chloride 3% For Inhalation 15 ML VIAL.NEB INH SCH (13:00)
[2025-02-23 15:28] VITALS: BP 101/68
--- NOTE | 2025-02-23 16:48 | NUR ---
SHIFT SUMMARY PT REMAINS ALERT AND ORIENTED. PT HAS REMAINED ON 4L NC WITH SATS ABOVE 90%. HR HAS BEEN NSR TO ST 110'S SINCE PREVIOUS NOTE. PT COMPLAINS OF CHRONIC PAIN THIS SHIFT AND MEDICATED PER EMAR. PT LIFTED TO RECLINER THIS SHIFT FOR A COUPLE HOURS AND THEN LIFTED BACK TO BED. PT PROFOUNDLY WEAK. PT HAS BEEN INCONTINENT OF URINE AND PUREWICK DEVICE IN PLACE. BED BATH PROVIDED TODAY. WILL CONTINUE PLAN OF CARE AND REPORT TO ONCOMING LARRY
[2025-02-23 20:24] VITALS: BP 115/71
[2025-02-24] VITALS (7 sets, daily range): BP systolic 87–127; BP diastolic 56–79
[2025-02-24 05:23] LABS: BASOPHILS ABSOLUTE AUTO 0.04 K/mm3 (0.00-0.23); BASOPHILS PERCENT AUTO 0 % (0-2); EOSINOPHILS ABSOLUTE AUTO 0.06 K/mm3 (0.00-0.68); EOSINOPHILS PERCENT AUTO 0 % (0-6); Hematocrit 26.2 % (33.0-51.0); Hemoglobin 8.5 g/dL (11.5-16.0); IMMATURE GRAN ABSOLUTE AUTO 0.08 K/mm3 (0.00-0.10); IMMATURE GRAN PERCENT AUTO 1 % (0-1); LYMPHOCYTES ABSOLUTE AUTO 2.15 K/mm3 (0.84-5.20); LYMPHOCYTES PERCENT AUTO 15 % (21-46); MONOCYTES ABSOLUTE AUTO 1.15 K/mm3 (0.16-1.47); MONOCYTES PERCENT AUTO 8 % (4-13); Mean Corpuscular HGB Conc 32.4 g/dL (31.5-36.5); Mean Corpuscular Volume 97 fL (80-100); NEUTROPHILS ABSOLUTE AUTO 10.45 K/mm3 (1.96-9.15); NEUTROPHILS PERCENT AUTO 75 % (41-73); NRBC ABSOLUTE 0.00 K/mm3 (0.00-0.02); NRBC Auto 0.0 /100 WBC (0.0-0.2); Platelet Count 107 K/mm3 (150-400); RDW Coefficient Variation 25.9 % (11.7-14.2); RDW Standard Deviation 88.3 fL (35.1-46.3)
[2025-02-24 05:47] LABS: Alanine Aminotransfer (ALT/SGP 37.0 U/L (12-78); Albumin, Blood 2.5 g/dL (3.4-5.0); Albumin/Globulin Ratio 0.8 (0.8-1.8); Anion Gap 4.0 mmol/L (3-11); Aspartate Aminotrans (AST/SGOT 29.0 U/L (12-37); Bilirubin, Total 0.8 mg/dL (0.1-1.0); Blood Urea Nitrogen 19.0 mg/dL (8-24); CO2, Blood 31.0 mmol/L (21-32); Calcium, Blood 8.5 mg/dL (8.5-10.1); Chloride, Blood 102.0 mmol/L (98-108); Creatinine, Blood 0.26 mg/dL (0.40-1.00); Globulin, Blood 3.3 g/dL (2.2-4.0); Glucose, Blood 147.0 mg/dL (70-99); Potassium, Blood 3.7 mmol/L (3.5-5.5); Sodium, Blood 133.0 mmol/L (136-145); Total Protein, Blood 5.8 g/dL (6.4-8.2)
--- NOTE | 2025-02-24 07:23 | NUR ---
PT HAD NO MAJOR EVENTS OVER NIGHT. PT DID REQUIRE INCREASED PAIN MANAGEMENT AND WAS MEDICATED ON AN INCREASED INTERVAL TO MANAGE IT, SEE MAR. PT REMAINED AXO4 AND WAS EASILY ROUSED FROM SLEEP. PT ABLE TO USE CALL LIGHT AND MAKE NEEDS KNOWN. PT TOLERATING TPN AND IV ABX. IMPLANTED PORT FUNCTIONING WNL, FLUSHES AND DRAWS WELL. PT DID REQUIRE CHANGE FROM NASAL CANNULA TO OXYMASK D/T MOUTH BREATHING, SATS DECREASED TO 89% ON 4L AND DID NOT IMPROVE MUCH ON 6L NC. CHANGED PT TO OXYMASK AND PT SATING 95% ON 4L. HEATING PAD ALSO APPLIED TO PT RIGHT SIDE/ABD AND THIS ALSO IMPROVED PAIN CONTROL. PT CONTINUES TO HAVE GOOD URINARY OUTPUT, PUREWICK IN PLACE. PT LEFT ARM CONTINUES TO BE EDEMATOUS AND WEEPING. NON-ADHERENT DRESSINGS AND KARI WRAP USED TO MANAGE WEEPING. KARI WRAP SECURED DRESSINGS IN PLACE AND ALLOWED FREQUENT CHANGES NEEDED.
[2025-02-24] MEDS ORDERED: Ipratropium/Albuterol SulF 2.5-0.5MG/3 ML Amp INH SCH (12:10)
[2025-02-24] MEDS ORDERED: Polyethylene Glycol 3350 17 gm PO SCH (12:10)
--- NOTE | 2025-02-24 17:33 | NUR ---
SHIFT SUMMARY PT REMAINS ALERT AND ORIENTED. PT REPORTS FEELING "EXHAUSTED" THIS SHIFT AFTER WORKING WITH THERAPY THIS AM. PT HAS BEEN RESTING ON AND OFF, BUT AWAKENS EASILY WHEN STAFF ENTER ROOM. BP STABLE. HR REMAINS NSR TO SINUS TACH 90-120'S. O2 SATS HAVE REMAINED ABOVE 90% ON 4L NC. PT CONTINUES TO COUGH UP THICK SPUTUM. PT INCONTINENT OF URINE AND PUREWICK DEVICE IN PLACE. NO BM THIS SHIFT, BUT BOWEL CARE STARTED. PLAN IS FOR BRONCHOSCOPY TOMORROW. NO SOLID FOODS AFTER MIDNIGHT. PT CAN HAVE WATER UNTIL 0700 TOMORROW AM. PT COMPLAINS OF CHRONIC PAIN ALL OVER AND IN LOWER ABD. PT REPOSITIONED Q2H. PT DID NOT GET OUT OF BED TO RECLINER THIS SHIFT, BUT DID SIT ON EDGE OF BED WITH THERAPY. CPN CONTINUES TO INFUSE PER ORDERS. WILL CONTINUE PLAN OF CARE AND REPORT TO ONCOMING RN
[2025-02-25] VITALS (89 sets, daily range): BP systolic 76–163; BP diastolic 19–112
--- NOTE | 2025-02-25 00:31 | NUR ---
PT AOX4, IN BED ABLE TO MAKE NEEDS KNOWN. PT IS SOMNOLENT BUT DOES WAKE WAKE UP EASILY AND IS INTERACTIVE. TPN INFUSING INTO IMPLANTED PORT W/O PROBLEM. IV ABX TOLERATED WELL TO RUE POWER GLIDE. PT HEART RATE CONTINUES TO BE ELEVATED AND HAD SUSTAINED AT 155. PT WAS MEDICATED WITH 5MG OF IV METOPROLOL WITH MINIMAL IMPROVEMENT. BP TRENDING DOWN FROM BEGINNING OF SHIFT TO 80s/60s. O2 DEMAND INCREASING FROM 4 TO 6L. PT PLACED ON OXIMASK D/T MOUTH BREATHING. PAIN MANAGEMENT CONTINUES TO BE NEEDED REGULARY BUT IS MODERATELY SUCCESSFUL. PT FEBRILE AND TACHYPNEIC. PT REPORTS FEELING "OK, JUST VERY TIRED." PT WAS TRANSFERED TO ICU ROOM 10 AND REPORT GIVEN TO LARRY MUNIZ. ALL BELONINGS, MEDICATIONS AND CHART WITH PT AT TIME OF TRANSFER.
--- NOTE | 2025-02-25 00:45 | NUR ---
02/24/25 2320: CALL PLACED TO DR. BYNUM TO DISCUSS PT CURRENT CONDITION, ELEVATED HR, HYPOTENSIVE, AND FEBRILE. AWAITING CALL BACK.
[2025-02-25 01:12] LABS: Magnesium, Blood 2.0 mg/dL (1.6-2.4)
[2025-02-25 01:17] LABS: Anion Gap 5 mmol/L (3-11); Blood Urea Nitrogen 20 mg/dL (8-24); CO2, Blood 30 mmol/L (21-32); Calcium, Blood 8.6 mg/dL (8.5-10.1); Chloride, Blood 102 mmol/L (98-108); Creatinine, Blood 0.26 mg/dL (0.40-1.00); Glucose, Blood 148 mg/dL (70-99); Potassium, Blood 3.4 mmol/L (3.5-5.5); Sodium, Blood 134 mmol/L (136-145)
--- NOTE | 2025-02-25 01:34 | NUR ---
ASSUMPTION OF CARE PT ARRIVED TO UNIT AROUND 0000 VIA BED. ON 8L OXYMASK W/ INCREASED WOB. SATS > 92%. LUNG SOUNDS COARSE AND DIM. PT HR IN THE 140-150'S, DENIES CP/PRESSURE, BP SOFT W/ 90/60'S, MAPS >65. PUREWICK IN PLACE. NO C/O N/V. PT ANSWERING QUESTIONS APPROPRIATLY. PT REPORTS PAIN LEVEL OF 3 OUT OF 0-10, MEDICATED PER EMAR W/ FENTANYL 25MCG. TEMP OF 99.7 DEGREES F ON ARRIVAL. BLANKETS REMOVED AND BEDSIDE FAN PLACED ON PT. ORDERS FOR CO TYLENOL GIVEN IF NEEDED. SON ALINE CALLED TO GIVE UPDATE ON THE TRANSFER AND STATUS. LABS DRAWN, ORDERS GIVEN. CALL LIGHT IN REACH.
--- NOTE | 2025-02-25 05:11 | NUR ---
SHIFT SUMMARY PT REMAINS ON 8L OXYMASK. HR MAINTAINED 140'S. ORDERS FOR DIGOXIN Q6 X2 DOSES GIVEN, FIRST DOSE ADMINISTERED AROUND 0130. NO CHANGE NOTED. NO ACUTE EVENTS, CALL LIGHT IN REACH.
--- NOTE | 2025-02-25 09:27 | NUR ---
PROCEDURE NOTE FOR INTUBATION AND BRONCH. 0925 FENT 50MCG IV PUSH 0925 DR MCQUEEN AT HEAD OF BED. 0927 RT GIVING 15L VIA BAG MASK. 0931 TIME OUT 0932 LEVOPHED GTT START AT 5MCG 0933 PROPOFOL 60MG IVP 0933 ROCURONIUM 50MG IVP 0934 ETT PLACEMENT 0935 + BILAT LUNG SOUNDS, BP 76/ 54 PULSE 120 0935 LEVOPHED UP TO 7MCG 0936 PHENELEPHERINE 100MCGG IVP 0936 PUSLE 144, 100 SPO2, ETC02 33 0937 PRESSURE CONTROL FOR BRONCH 20/5 100% 0940 BP 86/60, PULSE 108, SPO2 100%, ETCO2 32, LEVOPHED UP TO 10MCG 0942 STARTING BRONCH 0943 PROPOFOL 30[address]G WITH FLUSH. DR NEVAREZ OUT LEFT LUNG BRONCHIOL, VERY THICK [employer] SECRETIONS 43662 PULSE 113, SPO2 100%, BP 121/77 MAP 91 [id number] SAMPLE COLLECTED OF THICK SECRETION FROM BRONCH 0948 SPO2 94%, PULSE 111, BP 139/79 MAP97 LEVOPHED DOWN TO 7MCG 0950 MOVEMENT FROM PATIENT, PROPOLFOL 20MCG IVP WITH FLUSH 0952 SPO2 89%, PULSE 111, BP 147/92 MAP 108 0954 PAUSE BRONCH PROCEDURE, SPO02 94%, PULSE 121, ETCO2 42 0955 SP02 97%, PULSE 123 BP 121/80 RESUME BRONCH 0956 PROPOFOL 20MCG IVP 0958 BRONCH OUT OF ETT. VS PULSE 121, SPO2 88%, ETCO2 43 0958 SPO2 94%. 1000 VENT AC 16/ TV 420/ 40%/ PEEP 5 BP 125/91 PULSE 120 1001 TRIED SPONTANEOUS BUT PT NOT MAKING OWN BREATH YET. BACK TO AC/VC 1002 END BRONCH. PT ON VENT CURRENTLY, WAITING TO SEE IF SHE WAKES TO TRY A WEAN.
--- NOTE | 2025-02-25 11:15 | NUR ---
AM NOTE: THIS RN ASSUMED CARE OF PT AT APPROX 0700, BEDSIDE REPORT FROM NOC RN. PT A/OX4 AT START OF SHIFT, ABLE TO COMMUNICATE NEEDS & PARTICIPATE IN CARE. PT INTUBATED, BRONCHOSCOPY COMPLETED, AND PT EXTUBATED THIS AM; SEE PROCEDURE NOTE FOR DETAILS. PT TRANSITIONED FROM VENT TO BIPAP TO MAINTAIN SPO2 >90%. RR 20-30'S ON BIPAP 16/6 50%. LEVOPHED GTT DURING PROCEDURE TITRATED OFF; SBP 110'S, MAP >65 AT THIS TIME. HR 110-120'S POST-PROCEDURE, SINUS TACH W/ PAC'S ON MONITOR. AFEBRILE. TPN INFUSING PER ORDERS VIA MEDIPORT. PW IN PLACE DRAINING VI URINE TO SUCTION. C/O PAIN TO RIGHT SIDE/FLANK, MEDICATED PER EMAR W/ REPORTED RELIEF. PT RESTING IN BED AT THIS TIME ON BIPAP, CALL LIGHT IN REACH.
[2025-02-25] MEDS ORDERED: TPN Consult Notification XX ONE (11:45)
[2025-02-25] MEDS ORDERED: Hydrogen Peroxide 1.5 % Solution MT SCH (12:00)
--- NOTE | 2025-02-25 13:31 | NUR ---
UPDATE: PT TRANSITIONED FROM BIPAP TO 4L NC, ABLE TO MAINTAIN SPO2 >90%. LEVO GTT TITRATED TO MAINTAIN MAP >65. SEE CRITICAL CARE FLOWSHEET FOR TITRATIONS; INFUSING AT 2MCG/MIN AT THIS TIME. HR 90'S, SINUS RHYTHM ON MONITOR. THIS RN PLACED CALL TO PT'S SON, Kristopher MIRELES/ UPDATE ON BRONCH PROCEDURE & PLAN OF CARE. PT RESTING IN BED AT THIS TIME, CALL LIGHT IN REACH.
[2025-02-25] MEDS ORDERED: Parenteral Electolytes 40 ML,Potassium Phosphate Dibasic 30 MM,Multivitamins 10 ML,ZINC... IV SCH (17:00)
--- NOTE | 2025-02-25 17:48 | NUR ---
END OF SHIFT NOTE: SEE PREVIOUS NOTES REGARDING BRONCHOSCOPY/INTUBATION/EXTUBATION THIS SHIFT. PT REMAINS A/OX4, COOPERATIVE W/ ALL CARE. LEVOPHED GTT OFF W/ MAP MAINTAINING >65. HR 90-110'S, SINUS/SINUS TACH ON MONITOR W/ PAC'S. DENIES CHEST PAIN/PRESSURE. SPO2 >90% ON AIRVO 50L 48%. WET PHARMACY BENEFITS COORDINATOR COUGH NOTED. AFEBRILE. TPN INFUSING AT NEW RATE VIA MEDIPORT, SEE ORDERS. PT NPO EXCEPT PO MEDS AT THIS TIME PER DR. MCQUEEN. LARGE INCONTINENT BM THIS AFTERNOON. PUREWICK IN PLACE DRAINING VI URINE TO SUCTION. CH BATH COMPLETED THIS SHIFT. Q2HR REPOSITIONING, Q4HR ORAL CARE PROVIDED. C/O PAIN TO RIGHT ABD/BILIARY DRAIN SITE, MEDICATED W/ FENTANYL & OXYCODONE W/ REPORTED RELIEF. FAMILY AT BEDSIDE AT THIS TIME, CALL LIGHT IN REACH. WILL REPORT TO STACI JUAREZ.
[2025-02-25] MEDS ORDERED: Insulin Regular 100 UNIT/ML 10ML Vial SC SCH (18:00)
[2025-02-25] MEDS ORDERED: Cetylpyridinium Chloride 1 EA MISC MT SCH (20:00)
--- NOTE | 2025-02-25 20:40 | NUR ---
ASSUMPTION OF CARE: ASSUMED CARE OF PT AT 1905. PT ALERT AND ORIENTED. FOLLOWS DIRECTION AND MAKES NEEDS KNOWN. PT ON AIRVO 50L, 51% FIO2. DENIES SOB CURRENTLY. SATTING 90-92%. LUNGS COARSE/DIM T/O. PT HAVING THICK SECRETIONS. DROWSY AT TIMES BUT ARROUSES TO VOICE. PT WEAK T/O. FUR TRAPPER IN PLACE, ST WITH HR 100-110'S. SBP 100'S. DENIES CP/ PRESSURE. TPN INFUSING PER MAR THROUGH PORT IN RIGHT CHEST WALL. POWERGLIDE TO JERRI PATENT. PT HAS OPEN SPOTS OF SKIN NOTED T/O HER BODY. COVERED WITH DRESSINGS APPROPRIATE. PUREWICK INPLACE, DRAINING TO SUCTION. TOLERATING PO MEDS. BED LOW AND LOCKED, CALL LIGHT IN REACH.
[2025-02-26] VITALS (66 sets, daily range): BP systolic 66–152; BP diastolic 52–100
[2025-02-26 03:17] LABS: BASOPHILS ABSOLUTE AUTO 0.03 K/mm3 (0.00-0.23); BASOPHILS PERCENT AUTO 0 % (0-2); EOSINOPHILS ABSOLUTE AUTO 0.08 K/mm3 (0.00-0.68); EOSINOPHILS PERCENT AUTO 1 % (0-6); Hematocrit 23.9 % (33.0-51.0); Hemoglobin 7.7 g/dL (11.5-16.0); IMMATURE GRAN ABSOLUTE AUTO 0.08 K/mm3 (0.00-0.10); IMMATURE GRAN PERCENT AUTO 1 % (0-1); LYMPHOCYTES ABSOLUTE AUTO 2.53 K/mm3 (0.84-5.20); LYMPHOCYTES PERCENT AUTO 17 % (21-46); MONOCYTES ABSOLUTE AUTO 0.82 K/mm3 (0.16-1.47); MONOCYTES PERCENT AUTO 5 % (4-13); Mean Corpuscular HGB Conc 32.2 g/dL (31.5-36.5); Mean Corpuscular Volume 97 fL (80-100); NEUTROPHILS ABSOLUTE AUTO 11.69 K/mm3 (1.96-9.15); NEUTROPHILS PERCENT AUTO 77 % (41-73); NRBC ABSOLUTE 0.02 K/mm3 (0.00-0.02); NRBC Auto 0.1 /100 WBC (0.0-0.2); Platelet Count 82 K/mm3 (150-400); RDW Coefficient Variation 24.9 % (11.7-14.2); RDW Standard Deviation 87.4 fL (35.1-46.3)
[2025-02-26 03:31] LABS: Anion Gap 6 mmol/L (3-11); Blood Urea Nitrogen 24 mg/dL (8-24); CO2, Blood 29 mmol/L (21-32); Calcium, Blood 8.2 mg/dL (8.5-10.1); Chloride, Blood 104 mmol/L (98-108); Creatinine, Blood 0.23 mg/dL (0.40-1.00); Glucose, Blood 161 mg/dL (70-99); Magnesium, Blood 1.8 mg/dL (1.6-2.4); Potassium, Blood 3.9 mmol/L (3.5-5.5); Sodium, Blood 135 mmol/L (136-145); Triglycerides 77 mg/dL (30-160)
--- NOTE | 2025-02-26 05:17 | NUR ---
SHIFT SUMMARY: PT REMAINS ALERT AND ORIENTED T/O THE NIGHT. FOLLOWS DIRECTION AND MAKES NEEDS KNOWN. ABLE TO SLEEP THIS SHIFT. C/O PAIN TO RIGHT SIDE FLANK/BACK, MEDICATED PER EMAR WITH RELIEF. REMAINS ON AIRVO T/O THE NIGHT, 50L, 51% FIO2. SPO2 90-94%. DENIES SOB. RN TRAUMA IN PLACE, SR/ST WITH HR 90-120'S THIS SHIFT. SBP 99-108. DENIES CP. POWERGLIDE TO JERRI PATENT AND SALINE LOCKED. TPN INFUSING AT 94 ML/HR THROUGH PORT IN RIGHT CHEST WALL. PUREWICK IN PLACE, DRAINING VI URINE TO SUCTION. PT HAD EXTRA LARGE BM THIS SHIFT. TOLERATED PO MEDS WELL WITH THICKENED WATER. BED LOCKED, CALL LIGHT IN REACH.
--- NOTE | 2025-02-26 09:55 | NUR ---
AM NOTE: THIS RN ASSUMED CARE OF PT AT APPROX 0700, BEDSIDE REPORT FROM STACI RN. PT ALERT, ORIENTED X4 THIS AM. ABLE TO MAKE NEEDS KNOWN & PARTICIPATE IN CARE. HR 80-90'S, SINUS RHYTHM ON MONITOR. SBP 100-110'S, MAP >65. DENIES CHEST PAIN/PRESSURE. SPO2 >90% ON AIRVO 45L 45% THIS AM, TITRATED UP TO 60% TO MAINTAIN SPO2. PT PARTICIPATED IN PERCUSSION THERAPY W/ RT. WET COUGH NOTED. AFEBRILE. TPN INFUSING AT 94 ML/HR PER ORDERS VIA MEDIPORT. NPO EXCEPT PO MEDS PER MD ORDERS. PW DRAINING VI URINE TO SUCTION. C/O PAIN TO RIGHT FLANK/BILIARY DRAIN SITE, MEDICATED PER EMAR. CALL LIGHT IN REACH.
--- NOTE | 2025-02-26 10:51 | NUR ---
UPDATE: PT NOTED TO BE RESTING ON AIRVO W/ SPO2 86-88%. RT TO BEDSIDE. RR 30'S. AIRVO SETTINGS TITRATED UP TO 50L 72% FIO2 TO MAINTAIN SPO2 >90%. PT UNABLE TO TOLERATE HOB ELEVATED > APPROX 30 DEGREES DUE TO ABD PAIN. MEDICATED PER EMAR.
--- NOTE | 2025-02-26 12:07 | NUR ---
Spiritual Care Visit. Pt. is awake in bed and welcomes my visit. Pt. has been in the hospital for a long amount of time and has sen this wax pattern repairer often. Pt. is pleasant, honest, and open about her health rushing, and verbalizes (as she has before) wanting to fight her cancer diagnosis. Listen with empathy and an encouraging presence. Pt. verbalizes that while her sister has returned home other family memebers are checking on her regularly. Prayed with the Pt. Pt. verbalzied gratitude for the spiritual care visit and welcomed this wax pattern repairer to return.
--- NOTE | 2025-02-26 18:17 | NUR ---
END OF SHIFT NOTE: PT'S O2 DEMAND CONTINUES TO INCREASE THIS SHIFT. AIRVO 50L 89% FIO2 TO MAINTAIN SPO2 >88% PER MD ORDERS. PT ATTEMPTS TO SELF SUCTION, MINIMAL SPUTUM PRODUCTION W/ WEAK COUGH EFFORT. RR 30-40'S. PT FREQUENTLY STATES "I FEEL LIKE I CAN'T BREATHE." ENCOURAGED BIPAP USE, PT DECLINES USE AT THIS TIME. PARTICIPATED IN PERCUSSION THERAPY PER RT TODAY. SPO2 DOWN TO 80% DURING BRIEF CHANGE W/ APPROX 10MIN RECOVERY TIME. HR 90-110'S, SINUS/SINUS TACH ON MONITOR. SBP 110-140'S, MAP >65. AFEBRILE. PW IN PLACE, 1150ML URINE OUTPUT. 1 LARGE INCONTINENT BM. TPN INFUSING VIA MEDIPORT; MEDIPORT DEACCESSED & REACCESSED TODAY PER PROTOCOL. PG TO JERRI PATENT & SALINE LOCKED. Q2HR REPOSITIONING. C/O PAIN TO BILIARY DRAIN SITE, MEDICATED W/ FENTANYL & OXYCODONE PER EMAR. FAMILY AT BEDSIDE AT THIS TIME, CALL LIGHT IN REACH.
--- NOTE | 2025-02-26 18:56 | NUR ---
INTUBATION DR SUTTON AT BEDSIDE TO PERFORM ENDOTRACHEAL INTUBATION AND BRONCOSCOPY. PT CURRENTLY ON AIRVO 50 LPM AND 89% FIO2. SPO2 90%. RR 49. RTS MATT AND ANN AT BEDSIDE. 4 MG VERSED-1903 15 MG ETOMIDATE-1904 70 MG ROCURONIUM-1905 GLIDESCOPE INTUBATION c 8.0 @ 24 TEETH-1905 ETCO2 + COLOR CHANGE HR 137, BP 112/76 (89), SPO2 99% ON 100% O2. REPORT TO NOC RN FOR BRONCHOSCOPY. DR. SUTTON REMAINS AT BEDSIDE.
[2025-02-26] MEDS ORDERED: FentaNYL Citrate 50 MCG/ML 2 ML Injection IV PRN (19:10)
[2025-02-26] MEDS ORDERED: Cetylpyridinium Chloride 1 EA MISC MT SCH (20:00)
[2025-02-26 20:27] LABS: pH Blood Venous 7.41 (7.34-7.37)
--- NOTE | 2025-02-26 21:26 | NUR ---
ASSUMPTION OF CARE/PT STATUS UPDATE PT INTUBATED AT BEGINNING OF SHIFT BY DR MAYS FOR BRONCH. BP 66/52 WITH HR 133 AT 1912. GIVEN 2 ML PHENYLEPHRINE AND LEVO STARTED AT 8 MCG/MIN AT [address] MAYS. PROPOFOL STARTED AT 10 MCG/KG/MIN FOR SEDATION, TRITRATED LEVO FOR BP, SEE FLOWSHEET. BRONCH ENDED AT 1930. 1934 SALEM SUMP OGT INSERTED AND PLACEMENT CONFIRMED BY PCXR AND DR MAYS AND IS APPROX 72 CM AT LIP. ETT IS 8.0 AND 23 CM AT TEETH AT END OF BRONCH. AT 2005 16 FR ARAUZ CATH INSERTED WITH MOD AMT CLEAR/YELLOW OUTPUT AND IS TO GRAVITY.
[2025-02-27] VITALS (93 sets, daily range): BP systolic 84–134; BP diastolic 55–87
[2025-02-27] MEDS ORDERED: Hydrogen Peroxide 1.5 % Solution MT SCH
[2025-02-27 03:21] LABS: BASOPHILS ABSOLUTE AUTO 0.02 K/mm3 (0.00-0.23); BASOPHILS PERCENT AUTO 0 % (0-2); EOSINOPHILS ABSOLUTE AUTO 0.07 K/mm3 (0.00-0.68); EOSINOPHILS PERCENT AUTO 1 % (0-6); Hematocrit 23.4 % (33.0-51.0); Hemoglobin 7.4 g/dL (11.5-16.0); IMMATURE GRAN ABSOLUTE AUTO 0.06 K/mm3 (0.00-0.10); IMMATURE GRAN PERCENT AUTO 0 % (0-1); LYMPHOCYTES ABSOLUTE AUTO 2.64 K/mm3 (0.84-5.20); LYMPHOCYTES PERCENT AUTO 19 % (21-46); MONOCYTES ABSOLUTE AUTO 0.64 K/mm3 (0.16-1.47); MONOCYTES PERCENT AUTO 5 % (4-13); Mean Corpuscular HGB Conc 31.6 g/dL (31.5-36.5); Mean Corpuscular Volume 96 fL (80-100); NEUTROPHILS ABSOLUTE AUTO 10.71 K/mm3 (1.96-9.15); NEUTROPHILS PERCENT AUTO 76 % (41-73); NRBC ABSOLUTE 0.03 K/mm3 (0.00-0.02); NRBC Auto 0.2 /100 WBC (0.0-0.2); Platelet Count 81 K/mm3 (150-400); RDW Coefficient Variation 23.9 % (11.7-14.2); RDW Standard Deviation 83.1 fL (35.1-46.3)
[2025-02-27 03:37] LABS: Alanine Aminotransfer (ALT/SGP 25.0 U/L (12-78); Albumin, Blood 2.1 g/dL (3.4-5.0); Albumin/Globulin Ratio 0.7 (0.8-1.8); Anion Gap 7.0 mmol/L (3-11); Aspartate Aminotrans (AST/SGOT 21.0 U/L (12-37); Bilirubin, Total 0.7 mg/dL (0.1-1.0); Blood Urea Nitrogen 26.0 mg/dL (8-24); CO2, Blood 29.0 mmol/L (21-32); Calcium, Blood 8.2 mg/dL (8.5-10.1); Chloride, Blood 104.0 mmol/L (98-108); Creatinine, Blood 0.28 mg/dL (0.40-1.00); Globulin, Blood 2.9 g/dL (2.2-4.0); Glucose, Blood 129.0 mg/dL (70-99); Magnesium, Blood 1.7 mg/dL (1.6-2.4); Phosphorus, Blood 2.5 mg/dL (2.5-4.9); Potassium, Blood 3.3 mmol/L (3.5-5.5); Sodium, Blood 137.0 mmol/L (136-145); Total Protein, Blood 5.0 g/dL (6.4-8.2)
--- NOTE | 2025-02-27 05:11 | NUR ---
SHIFT SUMMARY PT IMPROVED AFTER BRONCH, STILL LARGE AMT THICK, BELTRAN SECRETIONS THRU ETT AND MOD AMT ORAL THICK CLEAR SECRETIONS, SXN'D APPROX EVERY HOUR. MEDICATED FOR PAIN WITH FENTANYL PRN WITH GOOD RESULT. VS IMPROVED LATER IN SHIFT, ON LEVO 6 MCG/MIN, PROPOFOL AT 15 MCG/KG/MIN, AND PPN AT 94ML/HR. ABDULLAHI CHG BATH AND REPOSITIONING WELL WITH FENTANYL ON BOARD. LOVENOX TO BE HELD FOR THIS AM DOSE PER DR MAYS PENDING POSSIBLE TAP OF PLEURAL EFFUSION. WILL UPDATE DAY RN WITH LATEST STATUS.
[2025-02-27] MEDS ORDERED: Piperacillin/Tazobactam Sod 3.375 GM in NS 100 ML IV SCH (13:00)
[2025-02-27] MEDS ORDERED: TPN Consult Notification XX ONE (13:00)
[2025-02-27 13:26] LABS: Automated BF WBC Count 0.353 K/mm3 (0-999)
[2025-02-27 13:41] LABS: Glucose, Body Fluid 123 mg/dL
[2025-02-27 13:51] LABS: Albumin, Body Fluid 0.8 g/dL
[2025-02-27 14:23] LABS: RBC Count, Body Fluid 148 /mm3 (0-0)
[2025-02-27 14:25] LABS: Color, Body Fluid L Yellow (None-Yellow)
[2025-02-27 16:04] LABS: Lymphocytes, Fluid 25.0 % (0.0-18.0); Monocytes/Mononuclear, Fluid 5.0 % (0.0-50.0); Neutrophils, Fluid 69.0 % (0.0-25.0); Total Cell Count, Body Fluid 100
[2025-02-27 16:10] LABS: Acinetobacter baumannii DNA Not Detected copy/mL (NOT DETECT); Enterobacter cloacae DNA Not Detected copy/mL (NOT DETECT); Escherichia coli DNA Not Detected copy/mL (NOT DETECT); Haemophilus influenzae DNA Not Detected copy/mL (NOT DETECT); Klebsiella aerogenes DNA Not Detected copy/mL (NOT DETECT); Klebsiella oxytoca DNA Not Detected copy/mL (NOT DETECT); Klebsiella pneumoniae DNA Not Detected copy/mL (NOT DETECT); Moraxella catarrhalis DNA Not Detected copy/mL (NOT DETECT); Proteus sp DNA Not Detected copy/mL (NOT DETECT); Pseudomonas aeruginosa DNA Detected Bin 10^5 copy/mL (NOT DETECT); Serratia marcescens DNA Not Detected copy/mL (NOT DETECT); Staphylococcus aureus DNA Not Detected copy/mL (NOT DETECT); Streptococcus agalactiae DNA Not Detected copy/mL (NOT DETECT); Streptococcus pneumoniae DNA Not Detected copy/mL (NOT DETECT); Streptococcus pyogenes DNA Not Detected copy/mL (NOT DETECT)
[2025-02-27 16:11] LABS: CTX-M Resistance Gene Not Detected; Chlamydia pneumonia Not Detected (NOT DETECT); IMP Resistance Gene Not Detected; KPC Resistance Gene Not Detected; NDM Resistance Gene Not Detected; OXA-48-like Resistance Gene Not Detected; VIM Resistance Gene Not Detected
[2025-02-27 16:12] LABS: Human Coronavirus RNA Not Detected (NOT DETECT); Human Metapneumovirus RNA Not Detected (NOT DETECT); Influenza virus A RNA Not Detected (NOT DETECT); Influenza virus B RNA Not Detected (NOT DETECT); Respiratory syncytial Vir RNA Not Detected (NOT DETECT); Rhinovirus+Enterovirus RNA Not Detected (NOT DETECT)
[2025-02-27] MEDS ORDERED: Mag Sulfate 1 GM/D5% 100ML 100 ML IV STA (16:22)
[2025-02-27] MEDS ORDERED: Parenteral Electolytes 40 ML,Potassium Phosphate Dibasic 30 MM,Multivitamins 10 ML,ZINC... IV SCH (17:00)
--- NOTE | 2025-02-27 18:55 | NUR ---
Summary. Pt remained intubated this shift. On spontaneous without sedation currently. Pt calm and cooperative with care, no restraints. Paracentesis and bronch completed this shift, see physician notes. No acute events, see chart for further details.
[2025-02-27] MEDS ORDERED: Protein Supplement 30 ML UD PT SCH (21:00)
[2025-02-28] VITALS (90 sets, daily range): BP systolic 81–118; BP diastolic 50–86
--- NOTE | 2025-02-28 06:02 | NUR ---
SHIFT SUMMARY PT DID WELL ON VENT SPONT MODE T/O NIGHT WITH PAIN CONTROLLED WITH OXY AND FENTANYL FOR BREAKTHROUGH. FOLLOWS COMMANDS APPROP AND ABLE TO MOTION WHEN NEEDING SXN. STILL SUCTIONING COPIOUS THICK, BELTRAN SECRETIONS FROM ETT AND MOD THICK/CLEAR ORAL SECRETIONS. ABDULLAHI REPOSITIONING AND BATH WITH PREMEDICATING FOR PAIN. VSS ON LEVOPHED 6 MCG WITH NO TITRATION NEEDED. WILL UPDATE DAY RN WITH LATEST STATUS.
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
--- NOTE | 2025-02-28 18:14 | NUR ---
Summary. Pt rested in bed today, remains on ventilator. Propofol restarted for comfort this afternoon per Dr. Copeland. Family at bedside this evening, updated to current events/condition. No acute events this shift. See chart for further details.
[2025-02-28] MEDS ORDERED: Protein Supplement 30 ML UD PT SCH (21:00)
[2025-03-01] VITALS (94 sets, daily range): BP systolic 88–121; BP diastolic 58–90
[2025-03-01 05:04] LABS: Hematocrit 27.7 % (33.0-51.0); Hemoglobin 8.7 g/dL (11.5-16.0); Mean Corpuscular HGB Conc 31.4 g/dL (31.5-36.5); Mean Corpuscular Volume 99 fL (80-100); NRBC ABSOLUTE 0.00 K/mm3 (0.00-0.02); NRBC Auto 0.0 /100 WBC (0.0-0.2); Platelet Count 152 K/mm3 (150-400); RDW Coefficient Variation 23.5 % (11.7-14.2); RDW Standard Deviation 85.7 fL (35.1-46.3)
[2025-03-01 05:27] LABS: Anion Gap 6.0 mmol/L (3-11); Blood Urea Nitrogen 24.0 mg/dL (8-24); CO2, Blood 29.0 mmol/L (21-32); Calcium, Blood 8.4 mg/dL (8.5-10.1); Chloride, Blood 104.0 mmol/L (98-108); Creatinine, Blood 0.3 mg/dL (0.40-1.00); Glucose, Blood 155.0 mg/dL (70-99); Magnesium, Blood 1.9 mg/dL (1.6-2.4); Phosphorus, Blood 2.6 mg/dL (2.5-4.9); Potassium, Blood 3.3 mmol/L (3.5-5.5); Sodium, Blood 136.0 mmol/L (136-145)
[2025-03-01 05:35] LABS: BAND PERCENT MAN 17 % (0-8); BASOPHILS ABSOLUTE MAN 0.00 K/mm3 (0.00-0.23); BASOPHILS PERCENT MAN 0 % (0-2); EOSINOPHILS ABSOLUTE MAN 0.00 K/mm3 (0.00-0.68); EOSINOPHILS PERCENT MAN 0 % (0-6); LYMPHOCYTES % ATYPICAL MANUAL 1 % (0-0); LYMPHOCYTES ABSOLUTE MAN 1.24 K/mm3 (0.84-5.20); LYMPHOCYTES PERCENT MAN 19 % (21-46); MONOCYTES ABSOLUTE MAN 0.12 K/mm3 (0.16-1.47); MONOCYTES PERCENT MAN 2 % (4-13); NEUTROPHILS ABSOLUTE MAN 4.84 K/mm3 (1.96-9.15); SEG NEUTROPHILS PERCENT MAN 61 % (41-73)
--- NOTE | 2025-03-01 06:51 | NUR ---
SHIFT SUMMARY PT DID WELL DURING SHIFT ON VENT WITH MIN PROPOFOL SEDATION AND LEVO. CONTINUES TO FOLLOW COMMANDS APPROP. LESS SECRETIONS FROM ETT THAN LAST NIGHT, SXN'D Q 2 HRS, MOD THICK BELTRAN. VSS AT THIS TIME. ABDULLAHI TF. LEFT ABD PUNCTURE SITE STILL WEEPY, ABD PAD CHANGED TWICE DURING SHIFT FOR SATURATION OF SEROUS FLUID. WILL UPDATE DAY RN WITH LATEST STATUS.
--- NOTE | 2025-03-01 07:00 | NUR ---
SHIFT SUMMARY PT REMAINS ON VENT, SEDATED. WITHDRAWS TO PAIN, BUT NOT FOLLOWING COMMANDS. WAS V-PACED WITH TEMP TRANSVENOUS PACER T/O NIGHT UNTIL EPISODE OF NON-CAPTURE AND HR FLUCTUATION FROM 60'S TO 140'S STARTING AROUND 0440. MD CALLED AND UPDATED AND DID NOT WANT ANY INTERVENTION. PT STIFFENED AND ROLLED EYES TO BACK DURING EPISODES OF FLUCTUATING HR. PT STABILIZED AROUND 0500, EYES FORWARD AND LIMBS NO LONGER STIFFENED. BACK TO BASELINE STATUS FROM EARLIER IN SHIFT, VSS AT THIS TIME. DAY SHIFT RN UPDATED ON EVENTS OF SHIFT.
[2025-03-01] MEDS ORDERED: Acetaminophen 160MG / 5ML 10.15 UDC PT PRN (12:55)
--- NOTE | 2025-03-01 18:36 | NUR ---
Summary. Pt off sedation since this morning. Alert and calm on ventilator. PRN pain medications used with good effect for turns etc.. Family updated today at bedside. Levophed titrated off today. VS stable, no acute events. See chart for further details.
[2025-03-01] MEDS ORDERED: Lactobacil 2-S.Thermo-Bifido 1 1 Cap PT SCH (21:00)
[2025-03-02] VITALS (97 sets, daily range): BP systolic 80–127; BP diastolic 51–87
[2025-03-02 04:44] LABS: BASOPHILS ABSOLUTE AUTO 0.02 K/mm3 (0.00-0.23); BASOPHILS PERCENT AUTO 0 % (0-2); Hematocrit 24.0 % (33.0-51.0); Hemoglobin 7.6 g/dL (11.5-16.0); LYMPHOCYTES ABSOLUTE AUTO 2.01 K/mm3 (0.84-5.20); LYMPHOCYTES PERCENT AUTO 14 % (21-46); MONOCYTES ABSOLUTE AUTO 0.58 K/mm3 (0.16-1.47); MONOCYTES PERCENT AUTO 4 % (4-13); Mean Corpuscular HGB Conc 31.7 g/dL (31.5-36.5); Mean Corpuscular Volume 98 fL (80-100); NRBC ABSOLUTE 0.00 K/mm3 (0.00-0.02); NRBC Auto 0.0 /100 WBC (0.0-0.2); Platelet Count 172 K/mm3 (150-400); RDW Coefficient Variation 22.6 % (11.7-14.2); RDW Standard Deviation 80.8 fL (35.1-46.3)
[2025-03-02 04:47] LABS: EOSINOPHILS ABSOLUTE AUTO 0.01 K/mm3 (0.00-0.68); EOSINOPHILS PERCENT AUTO 0 % (0-6); IMMATURE GRAN ABSOLUTE AUTO 0.13 K/mm3 (0.00-0.10); IMMATURE GRAN PERCENT AUTO 1 % (0-1); NEUTROPHILS ABSOLUTE AUTO 11.63 K/mm3 (1.96-9.15); NEUTROPHILS PERCENT AUTO 81 % (41-73)
[2025-03-02 05:12] LABS: Alanine Aminotransfer (ALT/SGP 21.0 U/L (12-78); Albumin, Blood 2.7 g/dL (3.4-5.0); Albumin/Globulin Ratio 0.9 (0.8-1.8); Anion Gap 6.0 mmol/L (3-11); Aspartate Aminotrans (AST/SGOT 10.0 U/L (12-37); Bilirubin, Total 0.9 mg/dL (0.1-1.0); Blood Urea Nitrogen 35.0 mg/dL (8-24); CO2, Blood 28.0 mmol/L (21-32); Calcium, Blood 8.8 mg/dL (8.5-10.1); Chloride, Blood 107.0 mmol/L (98-108); Creatinine, Blood 0.39 mg/dL (0.40-1.00); Globulin, Blood 3.1 g/dL (2.2-4.0); Glucose, Blood 160.0 mg/dL (70-99); Magnesium, Blood 1.9 mg/dL (1.6-2.4); Phosphorus, Blood 2.9 mg/dL (2.5-4.9); Potassium, Blood 3.4 mmol/L (3.5-5.5); Sodium, Blood 138.0 mmol/L (136-145); Total Protein, Blood 5.8 g/dL (6.4-8.2)
[2025-03-02 05:24] LABS: BASOPHILS ABSOLUTE MAN 0.00 K/mm3 (0.00-0.23); BASOPHILS PERCENT MAN 0 % (0-2); EOSINOPHILS ABSOLUTE MAN 0.00 K/mm3 (0.00-0.68); EOSINOPHILS PERCENT MAN 0 % (0-6); LYMPHOCYTES % ATYPICAL MANUAL 100 % (0-0); LYMPHOCYTES ABSOLUTE MAN 14.38 K/mm3 (0.84-5.20); MONOCYTES ABSOLUTE MAN 0.00 K/mm3 (0.16-1.47); MONOCYTES PERCENT MAN 0 % (4-13)
--- NOTE | 2025-03-02 06:48 | NUR ---
SHIFT SUMMARY: NO ACUTE CHANGES OVERNGIHT; VSS THROUGHOUT THE SHIFT. PT REMAINS INTUBATED AND SEDATED WITH VENT SETTINGS AC/VC 20/400/8/35%. PT FOLLOWING COMMANDS, APPROPRIATE AND ABLE TO MAKE NEEDS KNOWN; PT CONTINUES UNRESTRAINED. LUNGS ARE COARSE T/O AND DIM IN THE BASES; SPO2 98<. PT SR-ST ON MONITOR WITH HR 90-120'S, SBP 90-100 AND HAS BEEN OFF LEVO THE ENTIRE NIGHT. PT VERY EDEMATOUS T/O; PARACENTESIS SITE TO RLQ THAT IS LEAKING WITH ABD PAD IN PLACE. BILIARY DRAIN TO RUQ THAT IS SECURED WITH TEGADERM AND REMAINS C/D/I. PT HAS OGT IN PLACE THAT IS INFUSING JEVITY 1.2 @ GOAL RATE. TEMP ARAUZ IN PLACE WITH LOW URINE OUTPUT; DR. STANTON UPDATED AND 40 MG LASIX GIVEN THIS MORNING. PT COMMUNICATING WITH COMMUNICATION BOARD AND WRITTEN LANGUAGE. PT HAD ONE, LOOSE BOWEL MOVEMENT THIS SHIFT. BED LOWERED, CALL LIGHT IN REACH.
--- NOTE | 2025-03-02 07:00 | NUR ---
ASSUMPTION OF CARE: ASSUMED CARE AT START OF SHIFT (0700). PT IS DOING WELL, THEY ARE INTUBATED AND RESTING IN BED. PT IS ALERT AND ABLE TO FOLLOW COMMANDS. PT DOES NOT HAVE PAIN, CP, OR SOB AT THIS TIME. LUNG SOUNDS ARE COARSE/RHONCHI THROUGHOUT, VENT: ACVC- 20/400/8/35% AND SPO2 >95%. SINUS RYTHM WITH SBP: 100'S MAP >65 AND HR: 100'S. IVS: MEDIPORT IN R UPPER CHEST, POWERGLIDE IN RUE. ARAUZ CATHETER IN PLACE AND DRAINING TO GRAVITY. OG TUBE IN PLACE AND CONNECTED TO TUBE FEEDING PER EMR ORDERS. ABDOMEN IS EDEMATOUS AND WEEPING FROM PREVIOUS PARACENTEOUS SITE. PT HAS BILIARY DRAIN ON R QUADRANTS THAT IS CLAMPED. LINES, CORDS, AND TUBES PLACED OUT OF REACH. CALL LIGHT PLACED WITHIN REACH AND PT TOLD TO PRESS CALL BUTTON WHEN THEY NEED ASSISTANCE.
--- NOTE | 2025-03-02 18:25 | NUR ---
SHIFT SUMMARY: PT IS DOING WELL AND RESTING IN BED. THEY ARE STILL INTUBATED BUT THEY HAVE BEEN ON SPONTANEOUS BREATHING SINCE THIS MORNING AND HAVE BEEN TOLERATING IT WELL. VENT: SPONTANEOUS - 10/5 40%. SPO2 >95%. SINUS TACH THROUGHOUT THE SHIFT WITH SBP: 100'S MAP >65 AND HR HAS BEEN RANGING FROM 100-130'S. TF FEEDING HAS BEEN STOPPED AND OG TUBE IS CONNECTED TO WALL SUCTION. PT HAS BEEN RECEIVING PAIN MEDS PER EMR ORDERS FOR PAIN. ARAUZ CATHETER IN PLACE AND DRAINING TO GRAVITY. LINES, CORDS, AND TUBES PLACED OUT OF REACH. CALL LIGHT PLACED WITHIN REACH. PT WILL PRESS CALL BUTTON WHEN THEY NEED ASSISTANCE.
[2025-03-03] VITALS (83 sets, daily range): BP systolic 89–115; BP diastolic 53–86
[2025-03-03 04:21] LABS: Hematocrit 23.0 % (33.0-51.0); Hemoglobin 7.2 g/dL (11.5-16.0); Mean Corpuscular HGB Conc 31.3 g/dL (31.5-36.5); Mean Corpuscular Volume 97 fL (80-100); NRBC ABSOLUTE 0.02 K/mm3 (0.00-0.02); NRBC Auto 0.1 /100 WBC (0.0-0.2); Platelet Count 200 K/mm3 (150-400); RDW Coefficient Variation 22.2 % (11.7-14.2); RDW Standard Deviation 78.3 fL (35.1-46.3)
[2025-03-03 04:40] LABS: Prothrombin Time Results 12.5 Sec (9.7-11.5)
[2025-03-03 04:41] LABS: Alanine Aminotransfer (ALT/SGP 24.0 U/L (12-78); Albumin, Blood 2.6 g/dL (3.4-5.0); Albumin/Globulin Ratio 0.8 (0.8-1.8); Anion Gap 6.0 mmol/L (3-11); Aspartate Aminotrans (AST/SGOT 20.0 U/L (12-37); Bilirubin, Total 1.3 mg/dL (0.1-1.0); Blood Urea Nitrogen 40.0 mg/dL (8-24); CO2, Blood 29.0 mmol/L (21-32); Calcium, Blood 8.9 mg/dL (8.5-10.1); Chloride, Blood 107.0 mmol/L (98-108); Creatinine, Blood 0.41 mg/dL (0.40-1.00); Globulin, Blood 3.1 g/dL (2.2-4.0); Glucose, Blood 102.0 mg/dL (70-99); Magnesium, Blood 2.1 mg/dL (1.6-2.4); Phosphorus, Blood 3.2 mg/dL (2.5-4.9); Potassium, Blood 3.3 mmol/L (3.5-5.5); Sodium, Blood 139.0 mmol/L (136-145); Total Protein, Blood 5.7 g/dL (6.4-8.2)
[2025-03-03 04:49] LABS: BAND PERCENT MAN 4 % (0-8); BASOPHILS ABSOLUTE MAN 0.00 K/mm3 (0.00-0.23); BASOPHILS PERCENT MAN 0 % (0-2); EOSINOPHILS ABSOLUTE MAN 0.00 K/mm3 (0.00-0.68); EOSINOPHILS PERCENT MAN 0 % (0-6); LYMPHOCYTES ABSOLUTE MAN 1.94 K/mm3 (0.84-5.20); LYMPHOCYTES PERCENT MAN 11 % (21-46); MONOCYTES ABSOLUTE MAN 0.70 K/mm3 (0.16-1.47); MONOCYTES PERCENT MAN 4 % (4-13); NEUTROPHILS ABSOLUTE MAN 15.01 K/mm3 (1.96-9.15); SEG NEUTROPHILS PERCENT MAN 81 % (41-73)
--- NOTE | 2025-03-03 06:13 | NUR ---
SHIFT SUMMARY REMAINS RASS 0, INTUBATED, NO SEDATION, PT TOLERATING WELL, FOLLOWS COMMANDS, NODS HEAD YES/NO APPROPRIATELY, CHANGED FROM SPONT TO AC/VC BY RT AT 2300 FOR PT TO REST, SR 90-110s, SBP 70-100S WITH MAP <65 AT BEGINNING OF SHIFT, LEVOPHED GTT RESTARTED PER EMAR WITH MAP MAINTAINING >65 AND TITRATED PER EMAR, RIGHT CHEST MEDIPORT ACCESSED AND PATENT, POWERGLIDE TO JERRI PATENT, ARAUZ PATENT AND DRAINING TO GRAVITY, NO BM THIS SHIFT, RLQ BILIARY DRAIN CLAMPED WITH DRESSING CDI, OG PATENT AND CONNECTED TO LIS, LLQ ABD PARACENTESIS INSERTION SITE CONTINUES TO DRAIN LARGE AMOUNT OF SEROUS DRAINAGE, SATURATED DRESSING GOWN AND BED PAD, GOWN, BED PAD AND DRESSING CHANGED, PT TOLERATED WELL, TURNED AND REPOSITIONED EVERY 2 HOURS, MEDICATED WITH FENTANYL IVP 50 MCG X2 AND OXYCODONE 5 MG VIA OG X1 PER EMAR FOR ABD PAIN, HOB UP 45 DEGREES, SIDE RAILS UP X3 BED IN LOW POSITION
--- NOTE | 2025-03-03 07:29 | NUR ---
SHIFT ASSESSMENT BEDSIDE REPORT RECEIVED FROM [facility] NURSE. PT INTUBATED, OFF SEDATION. AWAKENS EASILY TO VERBAL STIMULI, FOLLOWING COMMANDS, SANTOS, COMMUNICATING WITH COMMUNICATION BOARD, POINTING, SHAKING HEAD YES/NO. USING CALL LIGHT APPROPRIATELY, OUT OF RESTRAINTS. VENT SETTINGS VCA-20/400/35/5 c SATS >95%. OGT TO LIS, SMALL AMNT OF TF IN SUCTION CANISTER. ABDOMEN REMAINS FIRM BUT LESS DISTENDED THAN YESTERDAY. SMALL AMNT OF OOZING FROM L ABD PARACENTESIS SITE. TEMP PROBE ARAUZ DRAINING VI URINE, T-99. NO BM LAST NIGHT/ THIS AM. HOLDING LOVENOX FOR PARACENTESIS TODAY.
[2025-03-03 11:19] LABS: Automated BF WBC Count 2.511 K/mm3 (0-999)
[2025-03-03 11:36] LABS: Albumin, Body Fluid 1.4 g/dL
[2025-03-03 12:39] LABS: Color, Body Fluid L Yellow (None-Yellow); Lymphocytes, Fluid 22.0 % (0.0-18.0); Monocytes/Mononuclear, Fluid 5.0 % (0.0-50.0); Neutrophils, Fluid 73.0 % (0.0-25.0); Total Cell Count, Body Fluid 100
[2025-03-03 12:42] LABS: RBC Count, Body Fluid 326 /mm3 (0-0)
--- NOTE | 2025-03-03 13:19 | NUR ---
UPDATE EXTUBATED TO BIPAP. SEE RT CHARTING FOR SETTINGS. PT CURRENTLY TOLERATING WELL.
--- NOTE | 2025-03-03 17:55 | NUR ---
SHIFT SUMMARY PT A&OX4, FOLLOWING COMMANDS, WEAKLY SANTOS. TOLERATING BIPAP, SATS >90%. CURRENTLY RECEIVING A BREAK FROM BIPAP c 4LPM O2 VIA NC, SATS >95%, PT DENIES SOB AT THIS TIME. OGT REMOVED WITH EXTUBATION, WILL PERFORM SWALLOW EVAL TOMORROW. ABDOMEN MILDLY DISTENDED, PT CONTINUES TO C/O MODERATE TO SEVERE ABD PAIN, MEDICATING WITH IV PAIN MEDS. TEMP PROBE ARAUZ DRAINING VI URINE. CALL LIGHT IN REACH.
[2025-03-04] VITALS (46 sets, daily range): BP systolic 90–122; BP diastolic 54–88
[2025-03-04 04:00] LABS: BASOPHILS ABSOLUTE AUTO 0.02 K/mm3 (0.00-0.23); BASOPHILS PERCENT AUTO 0 % (0-2); EOSINOPHILS ABSOLUTE AUTO 0.02 K/mm3 (0.00-0.68); EOSINOPHILS PERCENT AUTO 0 % (0-6); Hematocrit 23.2 % (33.0-51.0); Hemoglobin 7.3 g/dL (11.5-16.0); IMMATURE GRAN ABSOLUTE AUTO 0.19 K/mm3 (0.00-0.10); IMMATURE GRAN PERCENT AUTO 1 % (0-1); LYMPHOCYTES ABSOLUTE AUTO 2.29 K/mm3 (0.84-5.20); LYMPHOCYTES PERCENT AUTO 12 % (21-46); MONOCYTES ABSOLUTE AUTO 0.85 K/mm3 (0.16-1.47); MONOCYTES PERCENT AUTO 5 % (4-13); Mean Corpuscular HGB Conc 31.5 g/dL (31.5-36.5); Mean Corpuscular Volume 98 fL (80-100); NEUTROPHILS ABSOLUTE AUTO 15.56 K/mm3 (1.96-9.15); NEUTROPHILS PERCENT AUTO 82 % (41-73); NRBC ABSOLUTE 0.00 K/mm3 (0.00-0.02); NRBC Auto 0.0 /100 WBC (0.0-0.2); Platelet Count 198 K/mm3 (150-400); RDW Coefficient Variation 21.7 % (11.7-14.2); RDW Standard Deviation 76.6 fL (35.1-46.3)
[2025-03-04 04:24] LABS: Alanine Aminotransfer (ALT/SGP 25.0 U/L (12-78); Albumin, Blood 2.4 g/dL (3.4-5.0); Albumin/Globulin Ratio 0.9 (0.8-1.8); Anion Gap 8.0 mmol/L (3-11); Aspartate Aminotrans (AST/SGOT 21.0 U/L (12-37); Bilirubin, Total 1.1 mg/dL (0.1-1.0); Blood Urea Nitrogen 35.0 mg/dL (8-24); CO2, Blood 28.0 mmol/L (21-32); Calcium, Blood 8.7 mg/dL (8.5-10.1); Chloride, Blood 110.0 mmol/L (98-108); Creatinine, Blood 0.3 mg/dL (0.40-1.00); Globulin, Blood 2.7 g/dL (2.2-4.0); Glucose, Blood 94.0 mg/dL (70-99); Potassium, Blood 3.2 mmol/L (3.5-5.5); Sodium, Blood 143.0 mmol/L (136-145); Total Protein, Blood 5.1 g/dL (6.4-8.2)
[2025-03-04] MEDS ORDERED: Potassium Chl 20MEQ/Water100ML 100 ML IV SCH (05:00)
--- NOTE | 2025-03-04 06:05 | NUR ---
SHIFT SUMMARY NO ACUTE CHANGES THIS SHIFT, ALERT AND ORIENTED X3, FOLLOWS COMMANDS, ABLE TO MAKE NEEDS KNOWN, PLEASANT DEMEANOR NOTED, SR WITH OCC PACs 70-80s, BP STABLE WITH MAP >65, 02 AT 4 LPM NC WITH SPO2 >92% WHILE AWAKE AND PLACED ON BIPAP AT 2330 BY RT 14/7 FIO2 30%, TOLERATED WELL AND TAKEN OFF AT 0600, ARAUZ PATENT AND DRAINING TO GRAVITY, RLQ ABD BILIARY DRAIN CLAMPED DRESSING CDI, DRESSING TO LLQ ABD FROM PARACENTESIS YESTERDAY CDI, MEDICATED WITH FENTANYL 50 MCG IVP PER EMAR FOR ABD PAIN, X1 BM THIS SHIFT, TURNED AND REPOSITIONED EVERY 2 HOURS, SIDE RAILS UP X 3, BED IN LOW POSITION, CALL LIGHT IN REACH
--- NOTE | 2025-03-04 06:17 | NUR ---
UPDATE POTASSIUM SEREM LEVEL 3.0, NEW ORDER FOR POTASSIUM REPLACEMENT PER PROTOCOL RECEIVED, IVPB POTASSIUM INFUSING AT THIS TIME
--- NOTE | 2025-03-04 09:13 | NUR ---
ASSUMPTION OF CARE: ASSUMED CARE ST START OF SHIFT (0700). PT IS DOING WELL AND RESTING IN BED. THEY ARE ALERT AND ORIENTED, ABLE TO FOLLOW COMMANDS. PT STATES 5/10 ABDOMINAL PAIN BUT NO CP OR SOB AT THIS TIME. LUNG SOUDS ARE CLEAR AND EQUAL BILATERALLY AND DIMINSHED IN THE BASES. THEY ARE ON O2 @ 3LPM VIA NC SPO2 >95%. SINUS RTYHM WITH SBP: 100'S MAP >65 AND HR: 90'S. IV: POWERGLIDE IN RUE AND MEDIPORT IN R UPPER CHEST. THEY HAVE ABILIARY DRAIN IN R UPPER QUDRANT. ARAUZ CATHETER IN PLACE AND DRAINING TO GRAVITY. LINES, CORDS, AND TUBES PLACED OUT OF REACH. CALL IGHT PLACED WITHIN REACH AND PT TOLD TO PRESS CALL BUTTON WHEN THEY NEED ASSISTANCE.
[2025-03-04] MEDS ORDERED: Furosemide 10 MG / ML 2ML Vial IV ONE (15:50)
[2025-03-04] MEDS ORDERED: Insulin Regular 100 UNIT/ML 10ML Vial SC SCH (16:55)
--- NOTE | 2025-03-04 18:33 | NUR ---
SHIFT SUMMARY: PT IS DOING WELL, THEY ARE DOING WELL AND RESTING IN BED. THEY ARE A&OX3, THEY DONT KNOW THE DATE, AND FOLLOWING COMMANDS. THEY PT HAS CHRONIC PAIN AND IS RECIEVING PAIN MEDS PER EMR ORDERS. PT IS ON 02 VIA NC @ 3LPM SPO2 >95%. SBP: 100'S MAP >65 HR: 90'S. PT WAS SEEN BY [facility] THERAPY AND CLEAR TO START EATING SOFT/ SMALL BITE SIZE FOODS. POWERGLIDE IN RUE AND MEDIPORT IN R UPPER CHEST. ARAUZ CATHETER IN PLACE AND DRAINING TO GRAVITY. LINES, CORDS, AND TUBES PLACED OUT OF REACH. CALL LIGHT PLACED WITHIN REACH.
--- NOTE | 2025-03-04 19:37 | NUR ---
PALLIATIVE CARE VISIT: MET WITH PT IN HER ROOM. PT IS ON O2 VIA NC, ABLE TO HAVE MEANINGFUL CONVERSATION. PROVIDED THERAPEUTIC LISTENING AND DISCUSSED GOC. PT IS HOPEFUL SHE CAN GO TO [facility] AND GET STRONG ENOUGH TO GO HOME AND CONTINUE HER CANCER TREATMENT.
[2025-03-05] VITALS (30 sets, daily range): BP systolic 101–125; BP diastolic 65–93
[2025-03-05 03:45] LABS: BASOPHILS ABSOLUTE AUTO 0.03 K/mm3 (0.00-0.23); BASOPHILS PERCENT AUTO 0 % (0-2); EOSINOPHILS ABSOLUTE AUTO 0.00 K/mm3 (0.00-0.68); EOSINOPHILS PERCENT AUTO 0 % (0-6); Hematocrit 25.6 % (33.0-51.0); Hemoglobin 7.9 g/dL (11.5-16.0); IMMATURE GRAN ABSOLUTE AUTO 0.34 K/mm3 (0.00-0.10); IMMATURE GRAN PERCENT AUTO 2 % (0-1); LYMPHOCYTES ABSOLUTE AUTO 2.83 K/mm3 (0.84-5.20); LYMPHOCYTES PERCENT AUTO 13 % (21-46); MONOCYTES ABSOLUTE AUTO 1.17 K/mm3 (0.16-1.47); MONOCYTES PERCENT AUTO 5 % (4-13); Mean Corpuscular HGB Conc 30.9 g/dL (31.5-36.5); Mean Corpuscular Volume 99 fL (80-100); NEUTROPHILS ABSOLUTE AUTO 17.73 K/mm3 (1.96-9.15); NEUTROPHILS PERCENT AUTO 80 % (41-73); NRBC ABSOLUTE 0.00 K/mm3 (0.00-0.02); NRBC Auto 0.0 /100 WBC (0.0-0.2); Platelet Count 237 K/mm3 (150-400); RDW Coefficient Variation 21.6 % (11.7-14.2); RDW Standard Deviation 77.5 fL (35.1-46.3)
[2025-03-05 04:15] LABS: Alanine Aminotransfer (ALT/SGP 29.0 U/L (12-78); Albumin, Blood 2.2 g/dL (3.4-5.0); Albumin/Globulin Ratio 0.6 (0.8-1.8); Anion Gap 7.0 mmol/L (3-11); Aspartate Aminotrans (AST/SGOT 25.0 U/L (12-37); Bilirubin, Total 0.8 mg/dL (0.1-1.0); Blood Urea Nitrogen 36.0 mg/dL (8-24); CO2, Blood 27.0 mmol/L (21-32); Calcium, Blood 9.0 mg/dL (8.5-10.1); Chloride, Blood 111.0 mmol/L (98-108); Creatinine, Blood 0.34 mg/dL (0.40-1.00); Globulin, Blood 3.4 g/dL (2.2-4.0); Glucose, Blood 114.0 mg/dL (70-99); Potassium, Blood 3.9 mmol/L (3.5-5.5); Sodium, Blood 141.0 mmol/L (136-145); Total Protein, Blood 5.6 g/dL (6.4-8.2)
--- NOTE | 2025-03-05 06:26 | NUR ---
SHIFT SUMMARY NO ACUTE CHANGES THIS SHIFT, SA-ST 90-110s WITH PACs NOTED, BP STABLE, MAP MAINTAINED >65, TACHYPNEIC 25-38 RPM, O2 AT 4 LPM NC WHILE AWAKE AND BIPAP FIO2 30% WHILE SLEEPING, PLACED ON BIPAP AT 2230 AND REMOVED AT 0620, PT TOLERATED WELL, MEDICATED WITH FENTANYL 50 MCG IVP PER EMAR,ARAUZ PATENT AND DRAINING TO GRAVITY, RLQ BILIARY DRAIN CLAMPED, DRESSING CDI, SCDs ON, PT TURNED AND REPOSITIONED EVERY 2 HOURS, NOTED LEFT ARM WEEPING SMALL AMOUNT, SCHEDULED PO MEDS GIVEN CRUSHED IN APPLESAUCE, PT SWALLOWED WITHOUT DIFFICULTY, SIDE RAILS UP X2, BED IN LOW POSITION, CALL LIGHT IN REACH
[2025-03-05] MEDS ORDERED: Polyethylene Glycol 3350 17 gm PO PRN (07:52)
[2025-03-05] MEDS ORDERED: Enoxaparin 80 MG/0.8 ML SYR SC SCH (09:00)
--- NOTE | 2025-03-05 13:50 | NUR ---
Spiritual Care Visit. Pt. is sitting up in a chair when she welcomes my visit. Pt. is pleasant. Pts. sister is at bedside. Faciliated an update. Pt. displayed evidence of being in good spirits and demonstrated resolve in her cancer rushing. Prayed for the Pt. Pt. verbalized gratitude for the spiritual care visit. Will remain available.
[2025-03-05] MEDS ORDERED: NS 500 ML IV ONE ×2 (14:09→14:16)
[2025-03-05] MEDS ORDERED: Heparin Sodium 1000 Units/ML 10ML MDV ONE (14:09)
--- NOTE | 2025-03-05 18:14 | NUR ---
Summary. Pt improved today, alert and oriented, 02 requirements decreasing. Pt up to chair for several hours, worked with PT/OT. Pt taken to [facility] at approximately 1445 for biliary drain removal. Site intact, 4x4 gauze and tegaderm dressing in place. Pt encouraged to improve oral intake today, dietary supplements added to tray, pt able to feed herself at mealtimes. No acute events this shift, see chart for futher details.
[2025-03-06] VITALS (23 sets, daily range): BP systolic 93–117; BP diastolic 58–88
[2025-03-06 03:46] LABS: BASOPHILS ABSOLUTE AUTO 0.04 K/mm3 (0.00-0.23); BASOPHILS PERCENT AUTO 0 % (0-2); EOSINOPHILS ABSOLUTE AUTO 0.01 K/mm3 (0.00-0.68); EOSINOPHILS PERCENT AUTO 0 % (0-6); Hematocrit 25.4 % (33.0-51.0); Hemoglobin 8.0 g/dL (11.5-16.0); IMMATURE GRAN ABSOLUTE AUTO 0.31 K/mm3 (0.00-0.10); IMMATURE GRAN PERCENT AUTO 2 % (0-1); LYMPHOCYTES ABSOLUTE AUTO 2.29 K/mm3 (0.84-5.20); LYMPHOCYTES PERCENT AUTO 11 % (21-46); MONOCYTES ABSOLUTE AUTO 1.12 K/mm3 (0.16-1.47); MONOCYTES PERCENT AUTO 5 % (4-13); Mean Corpuscular HGB Conc 31.5 g/dL (31.5-36.5); Mean Corpuscular Volume 98 fL (80-100); NEUTROPHILS ABSOLUTE AUTO 17.56 K/mm3 (1.96-9.15); NEUTROPHILS PERCENT AUTO 82 % (41-73); NRBC ABSOLUTE 0.00 K/mm3 (0.00-0.02); NRBC Auto 0.0 /100 WBC (0.0-0.2); Platelet Count 247 K/mm3 (150-400); RDW Coefficient Variation 21.2 % (11.7-14.2); RDW Standard Deviation 76.4 fL (35.1-46.3)
[2025-03-06 04:06] LABS: Alanine Aminotransfer (ALT/SGP 26.0 U/L (12-78); Albumin, Blood 2.2 g/dL (3.4-5.0); Albumin/Globulin Ratio 0.6 (0.8-1.8); Anion Gap 8.0 mmol/L (3-11); Aspartate Aminotrans (AST/SGOT 19.0 U/L (12-37); Bilirubin, Total 0.8 mg/dL (0.1-1.0); Blood Urea Nitrogen 38.0 mg/dL (8-24); CO2, Blood 26.0 mmol/L (21-32); Calcium, Blood 9.3 mg/dL (8.5-10.1); Chloride, Blood 113.0 mmol/L (98-108); Creatinine, Blood 0.35 mg/dL (0.40-1.00); Globulin, Blood 3.5 g/dL (2.2-4.0); Glucose, Blood 109.0 mg/dL (70-99); Magnesium, Blood 2.0 mg/dL (1.6-2.4); Phosphorus, Blood 3.0 mg/dL (2.5-4.9); Potassium, Blood 4.0 mmol/L (3.5-5.5); Sodium, Blood 143.0 mmol/L (136-145); Total Protein, Blood 5.7 g/dL (6.4-8.2)
--- NOTE | 2025-03-06 06:26 | NUR ---
End of Shift Summary Heart rate up to 150 overnight improved with PRN Lopressor dose. PRN pain medication given per NOV. VSS at this time.
--- NOTE | 2025-03-06 18:58 | NUR ---
Summary. Pt continuing to improve. Alert and oriented this shift, PCU status now. Paracentesis completed this afternoon, see chart. Pt continues to have poor oral intake, encouraged to eat all shift. No acute events, see chart for further details.
[2025-03-06 19:07] LABS: Automated BF WBC Count 0.564 K/mm3 (0-999)
[2025-03-06 20:33] LABS: RBC Count, Body Fluid 101 /mm3 (0-0)
[2025-03-06 20:35] LABS: Color, Body Fluid Yellow (None-Yellow)
[2025-03-06 20:40] LABS: Lymphocytes, Fluid 44.0 % (0.0-18.0); Neutrophils, Fluid 56.0 % (0.0-25.0); Total Cell Count, Body Fluid 100
[2025-03-07] VITALS (7 sets, daily range): BP systolic 96–105; BP diastolic 60–66
[2025-03-07 04:48] LABS: BASOPHILS ABSOLUTE AUTO 0.01 K/mm3 (0.00-0.23); BASOPHILS PERCENT AUTO 0 % (0-2); EOSINOPHILS ABSOLUTE AUTO 0.03 K/mm3 (0.00-0.68); EOSINOPHILS PERCENT AUTO 0 % (0-6); Hematocrit 23.6 % (33.0-51.0); Hemoglobin 7.4 g/dL (11.5-16.0); IMMATURE GRAN ABSOLUTE AUTO 0.33 K/mm3 (0.00-0.10); IMMATURE GRAN PERCENT AUTO 2 % (0-1); LYMPHOCYTES ABSOLUTE AUTO 3.22 K/mm3 (0.84-5.20); LYMPHOCYTES PERCENT AUTO 18 % (21-46); MONOCYTES ABSOLUTE AUTO 0.76 K/mm3 (0.16-1.47); MONOCYTES PERCENT AUTO 4 % (4-13); Mean Corpuscular HGB Conc 31.4 g/dL (31.5-36.5); Mean Corpuscular Volume 99 fL (80-100); NEUTROPHILS ABSOLUTE AUTO 13.42 K/mm3 (1.96-9.15); NEUTROPHILS PERCENT AUTO 75 % (41-73); NRBC ABSOLUTE 0.00 K/mm3 (0.00-0.02); NRBC Auto 0.0 /100 WBC (0.0-0.2); Platelet Count 215 K/mm3 (150-400); RDW Coefficient Variation 20.9 % (11.7-14.2); RDW Standard Deviation 73.9 fL (35.1-46.3)
[2025-03-07 05:07] LABS: Alanine Aminotransfer (ALT/SGP 27.0 U/L (12-78); Albumin, Blood 2.1 g/dL (3.4-5.0); Albumin/Globulin Ratio 0.6 (0.8-1.8); Anion Gap 4.0 mmol/L (3-11); Aspartate Aminotrans (AST/SGOT 28.0 U/L (12-37); Bilirubin, Total 0.8 mg/dL (0.1-1.0); Blood Urea Nitrogen 35.0 mg/dL (8-24); CO2, Blood 29.0 mmol/L (21-32); Calcium, Blood 9.4 mg/dL (8.5-10.1); Chloride, Blood 110.0 mmol/L (98-108); Creatinine, Blood 0.32 mg/dL (0.40-1.00); Globulin, Blood 3.3 g/dL (2.2-4.0); Glucose, Blood 107.0 mg/dL (70-99); Potassium, Blood 4.2 mmol/L (3.5-5.5); Sodium, Blood 139.0 mmol/L (136-145); Total Protein, Blood 5.4 g/dL (6.4-8.2)
--- NOTE | 2025-03-07 18:51 | NUR ---
Summary. Pt up in chair for much of shift. Alert and oriented, oral intake improved slightly today from yesterday. Pt required lower amounts of PRN pain medications today and reported overall lower pain level. No acute events during shift. See chart for details.
[2025-03-08] VITALS: BP 100/64
[2025-03-08 04:00] VITALS: BP 99/66
[2025-03-08 06:08] LABS: BASOPHILS ABSOLUTE AUTO 0.02 K/mm3 (0.00-0.23); BASOPHILS PERCENT AUTO 0 % (0-2); EOSINOPHILS ABSOLUTE AUTO 0.02 K/mm3 (0.00-0.68); EOSINOPHILS PERCENT AUTO 0 % (0-6); Hematocrit 24.4 % (33.0-51.0); Hemoglobin 7.8 g/dL (11.5-16.0); IMMATURE GRAN ABSOLUTE AUTO 0.36 K/mm3 (0.00-0.10); IMMATURE GRAN PERCENT AUTO 2 % (0-1); LYMPHOCYTES ABSOLUTE AUTO 3.14 K/mm3 (0.84-5.20); LYMPHOCYTES PERCENT AUTO 17 % (21-46); MONOCYTES ABSOLUTE AUTO 0.76 K/mm3 (0.16-1.47); MONOCYTES PERCENT AUTO 4 % (4-13); Mean Corpuscular HGB Conc 32.0 g/dL (31.5-36.5); Mean Corpuscular Volume 98 fL (80-100); NEUTROPHILS ABSOLUTE AUTO 13.96 K/mm3 (1.96-9.15); NEUTROPHILS PERCENT AUTO 76 % (41-73); NRBC ABSOLUTE 0.00 K/mm3 (0.00-0.02); NRBC Auto 0.0 /100 WBC (0.0-0.2); Platelet Count 222 K/mm3 (150-400); RDW Coefficient Variation 20.5 % (11.7-14.2); RDW Standard Deviation 72.6 fL (35.1-46.3)
[2025-03-08 06:28] LABS: Alanine Aminotransfer (ALT/SGP 23.0 U/L (12-78); Albumin, Blood 1.9 g/dL (3.4-5.0); Albumin/Globulin Ratio 0.6 (0.8-1.8); Anion Gap 5.0 mmol/L (3-11); Aspartate Aminotrans (AST/SGOT 21.0 U/L (12-37); Bilirubin, Total 0.7 mg/dL (0.1-1.0); Blood Urea Nitrogen 31.0 mg/dL (8-24); CO2, Blood 28.0 mmol/L (21-32); Calcium, Blood 8.8 mg/dL (8.5-10.1); Chloride, Blood 109.0 mmol/L (98-108); Creatinine, Blood 0.29 mg/dL (0.40-1.00); Globulin, Blood 3.4 g/dL (2.2-4.0); Glucose, Blood 103.0 mg/dL (70-99); Potassium, Blood 4.2 mmol/L (3.5-5.5); Sodium, Blood 138.0 mmol/L (136-145); Total Protein, Blood 5.3 g/dL (6.4-8.2)
[2025-03-08 08:00] VITALS: BP 103/70
--- NOTE | 2025-03-08 10:43 | NUR ---
AM NOTE: THIS RN ASSUMED CARE OF PT AT APPROX 0700, BEDSIDE REPORT FROM NOC RN. PT A/OX4, ABLE TO COMMUNICATE NEEDS W/ STAFF. HR 90-100'S, SINUS RHYTHM ON MONITOR. SBP 90-100'S, MAP >65. DENIES CHEST PAIN/PRESSURE. SPO2 >90% ON ROOM AIR, RR 20'S. PRODUCTIVE COUGH, ABLE TO SELF-SUCTION. AFEBRILE. C/O PAIN TO RIGHT FLANK, MEDICATED PER EMAR. DRESSING TO ABD C/D/I. ABD TENDER, BT+ X4. TEMP ARAUZ IN PLACE DRAINING URINE TO GRAVITY. PT ABLE TO SIT UP W/ ASSISTANCE TO EAT BREAKFAST. DECLINES GETTING INTO CHAIR THIS AM. NO OTHER NEEDS AT THIS TIME, CALL LIGHT IN REACH.
[2025-03-08 12:23] VITALS: BP 106/73
[2025-03-08 15:22] VITALS: BP 100/67
--- NOTE | 2025-03-08 17:19 | NUR ---
END OF SHIFT NOTE: NO ACUTE EVENTS THIS SHIFT. PT A/OX4, ABLE TO MAKE NEEDS KNOWN TO STAFF. VSS. HR 80-100'S, SINUS RHYTHM ON MONITOR. SBP 100'S, MAP >65. SPO2 >90% ON RA. PRODUCTIVE COUGH PRESENT, ABLE TO SELF-SUCTION. AFEBRILE. ARAUZ CATH REMOVED W/O DIFFICULTY, PUREWICK PLACED FOR URINARY INCONTINENCE. CHG BATH COMPLETED W/ SMALL SMEAR BM. VERY MINIMAL PO INTAKE THIS SHIFT. TOLERATING MEDS W/ WATER OR PUREE NEEDED. C/O PAIN TO RIGHT FLANK, MEDICATED PER EMAR. DRESSING TO FLANK REMAINS C/D/I, ABD TENDER. PT'S SON AT BEDSIDE AT THIS TIME. CALL LIGHT IN REACH.
[2025-03-08 20:54] VITALS: BP 87/60
[2025-03-09 01:16] VITALS: BP 83/57
[2025-03-09 04:40] VITALS: BP 89/62
[2025-03-09 05:03] LABS: BASOPHILS ABSOLUTE AUTO 0.02 K/mm3 (0.00-0.23); BASOPHILS PERCENT AUTO 0 % (0-2); EOSINOPHILS ABSOLUTE AUTO 0.02 K/mm3 (0.00-0.68); EOSINOPHILS PERCENT AUTO 0 % (0-6); Hematocrit 23.8 % (33.0-51.0); Hemoglobin 7.7 g/dL (11.5-16.0); IMMATURE GRAN ABSOLUTE AUTO 0.29 K/mm3 (0.00-0.10); IMMATURE GRAN PERCENT AUTO 1 % (0-1); LYMPHOCYTES ABSOLUTE AUTO 3.25 K/mm3 (0.84-5.20); LYMPHOCYTES PERCENT AUTO 16 % (21-46); MONOCYTES ABSOLUTE AUTO 0.98 K/mm3 (0.16-1.47); MONOCYTES PERCENT AUTO 5 % (4-13); Mean Corpuscular HGB Conc 32.4 g/dL (31.5-36.5); Mean Corpuscular Volume 98 fL (80-100); NEUTROPHILS ABSOLUTE AUTO 15.46 K/mm3 (1.96-9.15); NEUTROPHILS PERCENT AUTO 77 % (41-73); NRBC ABSOLUTE 0.00 K/mm3 (0.00-0.02); NRBC Auto 0.0 /100 WBC (0.0-0.2); Platelet Count 227 K/mm3 (150-400); RDW Coefficient Variation 20.8 % (11.7-14.2); RDW Standard Deviation 73.8 fL (35.1-46.3)
--- NOTE | 2025-03-09 05:16 | NUR ---
REPORT GIVEN AND PT CARE TURNED OVER TO VASHTI LYNN RN APPROXIMATELY 0400.
[2025-03-09 05:22] LABS: Alanine Aminotransfer (ALT/SGP 21.0 U/L (12-78); Albumin, Blood 1.9 g/dL (3.4-5.0); Albumin/Globulin Ratio 0.5 (0.8-1.8); Anion Gap 6.0 mmol/L (3-11); Aspartate Aminotrans (AST/SGOT 21.0 U/L (12-37); Bilirubin, Total 0.7 mg/dL (0.1-1.0); Blood Urea Nitrogen 27.0 mg/dL (8-24); CO2, Blood 28.0 mmol/L (21-32); Calcium, Blood 9.3 mg/dL (8.5-10.1); Chloride, Blood 109.0 mmol/L (98-108); Creatinine, Blood 0.33 mg/dL (0.40-1.00); Globulin, Blood 3.6 g/dL (2.2-4.0); Glucose, Blood 104.0 mg/dL (70-99); Potassium, Blood 4.2 mmol/L (3.5-5.5); Sodium, Blood 139.0 mmol/L (136-145); Total Protein, Blood 5.5 g/dL (6.4-8.2)
[2025-03-09 14:00] VITALS: BP 90/66
--- NOTE | 2025-03-09 17:54 | NUR ---
PT SLEPT WELL OFF AND ON TODAY. DID NOT ERAT VERY WELL AND HAD DECREASED UOP. PAIN MEDS GIVEN TO KEEP COMFORTABLE. PT AGREED TO BE BATHED LATER AFTER SON LEAVES.
[2025-03-09 21:45] VITALS: BP 113/75
--- NOTE | 2025-03-09 21:55 | NUR ---
TRANSFER NOTE PT A/OX4, MAKES NEEDS KNOWN. ON ROOM AIR. VSS. MEDICATED FOR PAIN WITH SOME RELIEF. PT TRANSFERRED TO PCU WITH 2 RN'S VIA BED. PTS BELONGINGS SENT HOME WITH SON AND SOME BELONGINGS BROUGHT OVER TO NEW ROOM. CHART GIVEN TO ONCOMING RN. REPORT GIVEN, QUESTIONS ANSWERED. NO ACUTE EVENTS.
[2025-03-09 23:57] VITALS: BP 96/63
[2025-03-10 03:51] VITALS: BP 99/71
--- NOTE | 2025-03-10 06:21 | NUR ---
SHIFT SUMMARY: PT TRANSFERRED FROM ICU. PT A&OX4 CALM AND COOPERATIVE. SOFT BPS MAP SUSTAINED >65. NSR 90S-100S. MAINTAINED >92% ON RA. PT C/O OF ABDOMEN AND BACK PAIN. MEDICATED PER EMAR. PT HAD 1 EPISODE OF VOMITING. MODERATE AMOUNT OF LIGHT BROWN EMESIS. ZOFRAN X1 GIVEN AND PT REPORTED RELIEF OF NAUSEA AND VOMITING. LAST BM 2 DAYS AGO. CHG BATH GIVEN AND PORT DRESSING CHANGED. BED AND LINEN CHANGE. PUREWICK CHANGED TODAY AND IN PLACE CONNECTED TO SUCTION. Q2 TURNS COMPLETED. PT CALLS APPROPRIATELY AND CALL LIGHT IS WITHIN REACH. BED IS LOW AND LOCKED. BED ALARM ON. WILL CONTINUE PLAN OF CARE TILL REPORT GIVEN TO DAY NURSE.
[2025-03-10 07:35] VITALS: BP 93/47
[2025-03-10 11:53] VITALS: BP 99/61
[2025-03-10] MEDS ORDERED: Amiodarone HCl200 MG PO (12:32)
[2025-03-10] MEDS ORDERED: MIRALAX1714 PO (12:33)
[2025-03-10] MEDS ORDERED: MEROPENEM114 IV (12:37)
[2025-03-10] MEDS ORDERED: SENNA LAXATIVE8.6 MG PO (12:38)
[2025-03-10] MEDS ORDERED: MORPHINE SU4 MG/1 M3 IV (12:45)
[2025-03-10 14:24] VITALS: BP 99/61
--- NOTE | 2025-03-10 16:56 | NUR ---
REPORT TO RN AT [facility] FOR TRANSFER. BELONGINGS SENT WITH CREW. PAIN MEDS PRIOR TO TRANSPORT PER EMAR. A/A/OX4 IN NO ACUTE DISTRESS.
== END 2025-03-10 14:30 | disposition short-term general hospital (02) | DRG 870 ==
LOC: ER 22:55 → ERHOLD 22:56 → ICUE 22:56 → PCU 02-04 03:26 → ICUE 02-04 03:27 → PCU 02-11 17:58 → ICUE 02-24 23:42 → PCU 03-09 21:40
PROVIDERS: Family Medicine; Internal Medicine; Internal Medicine Critical Care Medicine; Student in an Organized Health Care Education/Training Program; ADMIT Student in an Organized Health Care Education/Training Program
PROC: 3E033XZ Introduction of Vasopressor into Peripheral Vein, Percutaneous Approach (ICD-10-PCS; 2025-02-04)
PROC: 3E03329 Introduction of Other Anti-infective into Peripheral Vein, Percutaneous Approach (ICD-10-PCS; 2025-02-04)
PROC: 3E0336Z Introduction of Nutritional Substance into Peripheral Vein, Percutaneous Approach (ICD-10-PCS; 2025-02-07)
PROC: 30233J1 Transfusion of Nonautologous Serum Albumin into Peripheral Vein, Percutaneous Approach (ICD-10-PCS; 2025-02-10)
PROC: 5A0945A Assistance with Respiratory Ventilation, 24-96 Consecutive Hours, High Flow/Velocity Cannula (ICD-10-PCS; 2025-02-14)
PROC: 5A09357 Assistance with Respiratory Ventilation, Less than 24 Consecutive Hours, Continuous Positive Airway Pressure (ICD-10-PCS; 2025-02-17)
PROC: 4A13XR1 Monitoring of Arterial Saturation, Peripheral, External Approach (ICD-10-PCS; 2025-02-17)
PROC: 30233N1 Transfusion of Nonautologous Red Blood Cells into Peripheral Vein, Percutaneous Approach (ICD-10-PCS; 2025-02-22)
PROC: 0BH17EZ Insertion of Endotracheal Airway into Trachea, Via Natural or Artificial Opening (ICD-10-PCS; 2025-02-25)
PROC: 5A1935Z Respiratory Ventilation, Less than 24 Consecutive Hours (ICD-10-PCS; 2025-02-25)
PROC: 0BJ08ZZ Inspection of Tracheobronchial Tree, Via Natural or Artificial Opening Endoscopic (ICD-10-PCS; 2025-02-25)
PROC: 5A1955Z Respiratory Ventilation, Greater than 96 Consecutive Hours (ICD-10-PCS; principal; 2025-02-26)
PROC: 0B998ZZ Drainage of Lingula Bronchus, Via Natural or Artificial Opening Endoscopic (ICD-10-PCS; 2025-02-26)
PROC: 0B9G8ZZ Drainage of Left Upper Lung Lobe, Via Natural or Artificial Opening Endoscopic (ICD-10-PCS; 2025-02-26)
PROC: 0B9J8ZZ Drainage of Left Lower Lung Lobe, Via Natural or Artificial Opening Endoscopic (ICD-10-PCS; 2025-02-26)
PROC: 0BH17EZ Insertion of Endotracheal Airway into Trachea, Via Natural or Artificial Opening (ICD-10-PCS; 2025-02-26)
PROC: 0W9G3ZZ Drainage of Peritoneal Cavity, Percutaneous Approach (ICD-10-PCS; 2025-02-27)
PROC: 0B9D8ZX Drainage of Right Middle Lung Lobe, Via Natural or Artificial Opening Endoscopic, Diagnostic (ICD-10-PCS; 2025-02-27)
PROC: 0B998ZZ Drainage of Lingula Bronchus, Via Natural or Artificial Opening Endoscopic (ICD-10-PCS; 2025-02-27)
PROC: 0B9G8ZZ Drainage of Left Upper Lung Lobe, Via Natural or Artificial Opening Endoscopic (ICD-10-PCS; 2025-02-27)
PROC: 0B9J8ZZ Drainage of Left Lower Lung Lobe, Via Natural or Artificial Opening Endoscopic (ICD-10-PCS; 2025-02-27)
PROC: 0W9G3ZZ Drainage of Peritoneal Cavity, Percutaneous Approach (ICD-10-PCS; 2025-03-03)
PROC: 0BJ08ZZ Inspection of Tracheobronchial Tree, Via Natural or Artificial Opening Endoscopic (ICD-10-PCS; 2025-03-03)
PROC: 0FPBX0Z Removal of Drainage Device from Hepatobiliary Duct, External Approach (ICD-10-PCS; 2025-03-05)
PROC: BF101ZZ Fluoroscopy of Bile Ducts using Low Osmolar Contrast (ICD-10-PCS; 2025-03-05)
PROC: 0W9G3ZZ Drainage of Peritoneal Cavity, Percutaneous Approach (ICD-10-PCS; 2025-03-06)
DX: A41.52 Sepsis due to Pseudomonas (principal); D61.810 Antineoplastic chemotherapy induced pancytopenia; G93.41 Metabolic encephalopathy; J18.9 Pneumonia, unspecified organism; J96.01 Acute respiratory failure with hypoxia; R65.21 Severe sepsis with septic shock; J69.0 Pneumonitis due to inhalation of food and vomit; E43 Unspecified severe protein-calorie malnutrition; C78.7 Secondary malignant neoplasm of liver and intrahepatic bile duct; R64 Cachexia; J90 Pleural effusion, not elsewhere classified; J98.11 Atelectasis; C77.2 Secondary and unspecified malignant neoplasm of intra-abdominal lymph nodes; D84.9 Immunodeficiency, unspecified; D68.59 Other primary thrombophilia; N39.0 Urinary tract infection, site not specified; E87.20 Acidosis, unspecified; C25.0 Malignant neoplasm of head of pancreas; I47.10 Supraventricular tachycardia, unspecified; R18.8 Other ascites; A41.81 Sepsis due to Enterococcus; I48.91 Unspecified atrial fibrillation; L40.50 Arthropathic psoriasis, unspecified; I10 Essential (primary) hypertension; F17.210 Nicotine dependence, cigarettes, uncomplicated; D69.2 Other nonthrombocytopenic purpura; R13.10 Dysphagia, unspecified; M06.9 Rheumatoid arthritis, unspecified; R50.81 Fever presenting with conditions classified elsewhere; M32.9 Systemic lupus erythematosus, unspecified; E87.6 Hypokalemia; E83.42 Hypomagnesemia; T45.1X5A Adverse effect of antineoplastic and immunosuppressive drugs, initial encounter; K76.0 Fatty (change of) liver, not elsewhere classified; D63.0 Anemia in neoplastic disease; A41.59 Other Gram-negative sepsis; R73.03 Prediabetes; E83.39 Other disorders of phosphorus metabolism; T38.0X5A Adverse effect of glucocorticoids and synthetic analogues, initial encounter; E87.70 Fluid overload, unspecified; Z96.89 Presence of other specified functional implants; Z79.891 Long term (current) use of opiate analgesic; Z88.5 Allergy status to narcotic agent; Z79.52 Long term (current) use of systemic steroids; Z86.718 Personal history of other venous thrombosis and embolism; Z86.711 Personal history of pulmonary embolism; Z68.20 Body mass index [BMI] 20.0-20.9, adult; Z78.1 Physical restraint status
CPT/HCPCS: 0528U; 31500; 31720; 36415; 36600; 49083; 51702; 71045; 71250; 74018; 74177; 74230; 76705; 80048; 80053; 80069; 80076; 80162; 81001; 82042; 82248; 82330; 82803; 82945; 82947; 83605; 83735; 83880; 84100; 84157; 84478; 84484; 85007; 85025; 85027; 85610; 85730; 86850; 86900; 86901; 86923; 87040; 87070; 87075; 87077; 87086; 87186; 87205; 88108; 88305; 89051; 92526; 92610; 92611; 93005; 93010; 93306; 94002; 94003; 94640; 94660; 94664; 94667; 94668; 94760; 94762; 96365-59; 96375; 97110; 97162; 97166; 97530; 97535; 99285-25; A9270; C1751; C1769; C1894; G0378; J0692; J1160; J1642; J1644; J1650; J1720; J1815; J1938; J2185; J2250; J2371; J2405; J2470; J2543; J2704; J3010; J3370; J3411; J3475; J3480; J7030; J7040; J7050; J7060; J7070; J7120; P9016; P9047; Q9967